=== PATIENT | female | born 1960 | race African-American/Black ===

== ENCOUNTER 2016-12-16 20:30 | Outpatient (CLI) | payer MEDICARE, OTHER | END 2016-12-16 20:31 | disposition home or self-care (01) | LOC: SLEEPLAB 20:30 | PROVIDERS: ATTEND Internal Medicine | DX: G47.33 Obstructive sleep apnea (adult) (pediatric) (principal); R53.83 Other fatigue; R51 Headache; R06.83 Snoring; R35.1 Nocturia; I10 Essential (primary) hypertension; I25.10 Atherosclerotic heart disease of native coronary artery without angina pectoris | CPT/HCPCS: 95811 ==

== ENCOUNTER 2017-02-05 16:36 | Emergency (ER) | payer MEDICARE, MEDICAID ==
[2017-02-05 17:06] LABS: #Basophils 0.1 thou/uL (0.0-0.2); #Eosinphils 0.3 thou/uL (0.0-0.7); #Lymphocytes 4.2 thou/uL (1.20-3.40); #Monocytes 0.7 thou/uL (0.11-0.59); #Neutrophils 3.3 thou/uL (1.40-6.50); %Basophils 1.4 % (0.0-1.0); %Eosinophils 3.6 % (0.0-10.0); %Lymphocytes 48.4 % (21.0-51.0); %Monocytes 8.6 % (0.0-10.0); Mean Platelet Volume 9.3 fL (7.4-10.4); Red Blood Cell (RBC) Count 4.24 mill/uL (4.20-5.40); White Blood Cell (WBC) Count 8.6 thou/uL (4.8-10.8)
[2017-02-05 17:27] LABS: ALT (SGPT) 14 U/L (8-55); AST (SGOT) 13 U/L (5-34); Alkaline Phosphatase 104 U/L (40-150); Anion Gap 10 mmol/L (10-20); BUN (Urea Nitrogen) 18 mg/dL (9.8-20.1); Bilirubin, Total 0.4 mg/dL (0.2-1.2); Calc. Creatinine Clearance 0 mL/min (70-130); Carbon Dioxide 25 mmol/L (22-29); Chloride 106 mmol/L (98-107); Estimated GFR-MDRD 76; Globulin 3.7 g/dL (2.4-3.5); Lipase 33 U/L (8-78); Protein, Total 7.5 g/dL (6.0-8.3)
[2017-02-05 17:31] LABS: Troponin I 0.013 ng/mL (< 0.028)
--- NOTE | 2017-02-05 17:57 | RAD ---
LEFT RIBS THREE VIEWS 02/05/17 HISTORY: Fall. Left chest injury. FINDINGS/IMPRESSION: No displaced rib fracture or pneumothorax are apparent. POS: [facility]
--- NOTE | 2017-02-05 17:59 | RAD ---
RIGHT RIBS THREE VIEWS 02/05/17 HISTORY: Fall. Right chest injury. FINDINGS/IMPRESSION: No displaced rib fracture or pneumothorax are apparent. The oval nodule within the right middle lobe correlates with the abnormality described on prior PET CT. POS: [facility]
--- NOTE | 2017-02-05 18:05 | RAD ---
CHEST ONE VIEW 02/05/17 HISTORY: Fall. Chest injury. COMPARISON: 01/05/15. FINDINGS: The cardiac silhouette is magnified by projection. Pulmonary vasculature is upper limits of normal. M ediastinum is midline with a dual lead left subclavian cardiac electronic device. Mild patchy bibasil ar atelectasis is present with focal densities projecting over the junction of ribs at the right late ral lung base. No lobar consolidations or pneumothorax are apparent. music grapher leads overlie th e chest. IMPRESSION: No active cardiopulmonary abnormalities are demonstrated. POS: [facility]
[2017-02-05 18:21] LABS: Bilirubin Negative (Negative); Blood, Urine Negative (Negative); Glucose, Urine (Dipstick) Negative (Negative); Ketone, Urine Negative (Negative); Nitrite Negative (Negative); Protein, Urine (Dipstick) Negative (Neg-Trace)
--- NOTE | 2017-03-14 13:40 | EKG ---
Test Reason : Blood Pressure : / mmHG Vent. Rate : 078 BPM Atrial Rate : 078 BPM P-R Int : 186 ms QRS Dur : 184 ms QT Int : 470 ms P-R-T Axes : 064 -78 096 degrees QTc Int : 535 ms Atrial-sensed ventricular-paced rhythm Abnormal ECG Confirmed by LORI VALENZUELA ([id number]), editor managing newspaper MEGHANN FUENTES ([id number]) on 03/14/2017 1:40:14 PM Referred By: Confirmed By:LORI VALENZUELA
== END 2017-02-05 18:40 | disposition home or self-care (01) ==
LOC: ERS 16:36
DX: S20.211A Contusion of right front wall of thorax, initial encounter (principal); E78.5 Hyperlipidemia, unspecified; I10 Essential (primary) hypertension; Z71.6 Tobacco abuse counseling; F17.210 Nicotine dependence, cigarettes, uncomplicated; W01.10XA Fall on same level from slipping, tripping and stumbling with subsequent striking against unspecified object, initial encounter
CPT/HCPCS: 71010; 80053; 81003; 82553; 83690; 84484; 85025; 93005; 99406

== ENCOUNTER 2017-03-23 13:48 | Outpatient (CLI) | payer MEDICARE, MEDICAID | END 2017-03-23 13:49 | disposition home or self-care (01) | LOC: BICMAMMO 13:48 | DX: Z12.31 Encounter for screening mammogram for malignant neoplasm of breast (principal) | CPT/HCPCS: 77063; 77067 ==

== ENCOUNTER 2017-06-28 10:37 | Outpatient (CLI) | payer MEDICARE, MEDICAID | END 2017-06-28 10:38 | disposition home or self-care (01) | LOC: BICCT 10:37 | PROVIDERS: ATTEND Internal Medicine | DX: R91.1 Solitary pulmonary nodule (principal); G47.33 Obstructive sleep apnea (adult) (pediatric) | CPT/HCPCS: 71250 ==

== ENCOUNTER 2017-07-10 08:49 | Day surgery (SDC) | payer MEDICARE, MEDICAID ==
[2017-07-07 12:48] VITALS: BMI 30.2
[2017-07-10 09:32] LABS: #Basophils 0.1 thou/uL (0.0-0.2); #Eosinphils 0.3 thou/uL (0.0-0.7); #Lymphocytes 2.8 thou/uL (1.20-3.40); #Monocytes 0.8 thou/uL (0.11-0.59); #Neutrophils 1.9 thou/uL (1.40-6.50); %Basophils 1.4 % (0.0-1.0); %Eosinophils 4.8 % (0.0-10.0); %Lymphocytes 47.7 % (21.0-51.0); %Monocytes 13.4 % (0.0-10.0); %Neutrophils 32.7 % (42.0-75.0); Hemoglobin 14.3 g/dL (12.0-16.0); Mean Corpuscular HGB CONC 33.1 g/dL (32.0-36.0); Mean Corpuscular Volume 96.8 fl (81.0-99.0); Mean Platelet Volume 8.7 fL (7.4-10.4); Platelet Count 213 thou/uL (130-400); RBC Distribution Width 12.6 % (11.5-14.5); Red Blood Cell (RBC) Count 4.45 mill/uL (4.20-5.40); White Blood Cell (WBC) Count 5.8 thou/uL (4.8-10.8)
[2017-07-10 09:41] LABS: INR-International Normal Ratio 0.9; PTT 29.7 SEC (22.9-36.1); Prothrombin Time 12.4 SEC (12.0-14.7)
[2017-07-10 10:29] VITALS: BP 128/71; TEMP 97.8
[2017-07-10] MEDS ORDERED: Sodium Bicarbonate 2.5 MEQ/5 ML VIAL ONE (10:35)
[2017-07-10] MEDS ORDERED: Fentanyl 100 MCG/2 ML VIAL ONE (10:35)
[2017-07-10] MEDS ORDERED: Midazolam HCl 2 mg/2 ml Vial ONE (10:35)
[2017-07-10 12:50] LABS: ALT (SGPT) 17 U/L (8-55); AST (SGOT) 18 U/L (5-34); Albumin 4.4 g/dL (3.5-5.0); Alkaline Phosphatase 120 U/L (40-150); Anion Gap 15 mmol/L (10-20); BUN (Urea Nitrogen) 10 mg/dL (9.8-20.1); Bilirubin, Direct 0.2 mg/dL (0.1-0.3); Bilirubin, Total 0.4 mg/dL (0.2-1.2); Calc. Creatinine Clearance 89 mL/min (70-130); Calcium 9.3 mg/dL (7.8-10.44); Carbon Dioxide 22 mmol/L (22-29); Cardiac Risk 3.4 (Less than 4.5); Chloride 108 mmol/L (98-107); Cholesterol 129 mg/dl (< 200 Desired); Estimated GFR-MDRD 88; Glucose 104 mg/dL (70-105); HDL Cholesterol 38 mg/dL (>60 Neg Risk); LDL Cholesterol, Calculated 53 mg/dL; Potassium 4.2 mmol/L (3.5-5.1); Protein, Total 7.7 g/dL (6.0-8.3); Sodium 141 mmol/L (136-145); Triglycerides 190 mg/dL (Less than 150)
--- NOTE | 2017-07-10 13:20 | RAD ---
INSPIRATORY EXPIRATORY VIEWS OF THE LUNGS: INDICATION: Status post right middle lobe nodule biopsy. COMPARISON: CT of the thorax dated 06/28/17. FINDINGS: A small amount of hemorrhage is seen within the region of the right middle lobe consistent with the p atient's history of a right middle lobe lung nodule biopsy. No large pneumothorax is demonstrated. There is mild cardiomegaly. A dual-lead pacemaker is present. IMPRESSION: 1. No large right-sided pneumothorax demonstrated. 2. A small amount of hemorrhage is seen within the right middle lobe consistent with patient's recen t biopsy. POS: [facility]
--- NOTE | 2017-07-10 14:19 | CT ---
CT GUIDED RIGHT MIDDLE LOBE NODULE BIOPSY: INDICATION: Right middle lobe lung mass. COMPARISON: CT of the thorax performed at [facility] dated 06/28/17, PET CT dated 11/15/16, a nd CT pulmonary lung scan dated 10/21/16. TECHNIQUE: Informed consent was obtained. The patient was placed in a left lateral decubitus position and prepr ocedure sales operations associate images were obtained. [employer] Par[employer]egal images demonstrated optimized positioning for access to th e right middle lobe, lateral segment, pulmonary nodule identified on the prior evaluations. A site o verlying this region was prepped and draped in the usual sterile fashion. The patient underwent cons cious sedation under the guidance of the radiology nurse. The patient received 50 mcg of IV Fentanyl and 1 mg of IV Versed for the procedure. Buffered 1% Lidocaine was administered to the overlying lanier bcutaneous tissues. Under CT fluoroscopic guidance, a 19 gauge 13.8 cm Trocar needle was guided down to the lesion. The inner stylette was removed while the patient was in breathhold. The Trocar need le was then filled with sterile saline. The patient then underwent 2 separate core sample biopsies u tilizing a 20-gauge x 16 cm Bard cord biopsy device. Dr. Wells of the pathology department was on si te to verify adequacy of tissue sampling. After confirmation of adequacy of tissue sampling, the nee dle was removed. Pressure was held at the biopsy site until hemostasis was obtained. Postprocedural CT images demonstrate no significant pneumothorax. A small amount of hemorrhage is seen surrounding the right middle lobe nodule. Post procedure inspiratory/expiratory chest radiographs performed petty roximately 30 minutes following the procedure and at 1 hour following the procedure was assessed with no significant pneumothorax. The patient did well in the holding suite following the procedure. No complications were experienced. IMPRESSION: Successful CT-guided right middle lobe pulmonary nodule biopsy. POS: [facility]
--- NOTE | 2017-07-10 14:36 | RAD ---
INSPIRATORY AND EXPIRATORY VIEWS OF THE CHEST: INDICATION: Status post lung biopsy. COMPARISON: Prior exam dated 07/10/17. FINDINGS: No large pneumothorax is evident. Patchy opacities remain within the region of the right middle lobe consistent with a small amount of hemorrhage surrounding the right middle lobe nodule. Cardiomegaly is stable. Dual-lead pacemaker is unchanged. IMPRESSION: Status post lung biopsy without evidence of pneumothorax. POS: [facility]
== END 2017-07-10 13:35 | disposition home or self-care (01) ==
LOC: SPEC 08:49
PROVIDERS: ATTEND Internal Medicine
PROC: 0BDD4ZX Extraction of Right Middle Lung Lobe, Percutaneous Endoscopic Approach, Diagnostic (ICD-10-PCS; principal; 2017-07-10)
DX: C34.2 Malignant neoplasm of middle lobe, bronchus or lung (principal); I10 Essential (primary) hypertension; I25.10 Atherosclerotic heart disease of native coronary artery without angina pectoris; I73.9 Peripheral vascular disease, unspecified; Z88.0 Allergy status to penicillin
CPT/HCPCS: 32405; 36415; 71045; 77012; 80048; 80061; 80076; 85025; 85610; 85730; 88305; 88333; 88341; 88342; J2250; J3010

== ENCOUNTER 2017-07-24 13:31 | Outpatient (CLI) | payer MEDICARE, MEDICAID ==
[~2017-07-24 13:31] MED LIST: Iopamidol 370 76% 100 ML VIAL ONE
== END 2017-07-24 13:32 | disposition home or self-care (01) ==
LOC: BICCT 13:31
PROVIDERS: ATTEND Internal Medicine
DX: C34.90 Malignant neoplasm of unspecified part of unspecified bronchus or lung (principal); G47.33 Obstructive sleep apnea (adult) (pediatric); R59.0 Localized enlarged lymph nodes; E27.9 Disorder of adrenal gland, unspecified
CPT/HCPCS: 71260

== ENCOUNTER 2017-08-03 07:23 | Outpatient (CLI) | payer MEDICARE, MEDICAID ==
[2017-08-03] MEDS ORDERED: ISOVUE-370 76%-LOCM 1 ML ONE (11:00)
== END 2017-08-03 07:24 | disposition home or self-care (01) ==
LOC: BICCT 07:23
PROVIDERS: ATTEND Internal Medicine Hematology & Oncology
DX: C34.90 Malignant neoplasm of unspecified part of unspecified bronchus or lung (principal)
CPT/HCPCS: 70470

== ENCOUNTER 2017-08-15 13:09 | Outpatient (CLI) | payer MEDICARE, MEDICAID ==
--- NOTE | 2017-08-16 09:41 | PET ---
PET CT: HISTORY: 57-year-old male with moderately differentiated invasive lung adenocarcinoma of the right lung. Exam requested for initial staging. TECHNIQUE: PET scanning with CT attenuation correction was performed from the base of the brain through the prox imal thighs following the intravenous administration of 12 mCi F18-FDG in the right antecubital fossa . Imaging performed after an uptake interval of 51 minutes. COMPARISON: Chest CT dated 11/15/16. CORRELATION: CT chest of 07/24/17. FINDINGS: There is hypermetabolic activity in the 2.0 cm right middle lobe lung nodule with a SUV of 2.8. Pancho hypermetabolism is seen in the subcarinal lymph nodes with a SUV of 5. No hypermetabolic activity is seen in the hilar, axillary, cervical, or abdominopelvic lymph nodes. The adrenal mass demonstrates no abnormal FDG localization and has a SUV of 2.3. No hypermetabolic li sha, adrenal, or skeletal lesions are identified. There is physiologic activity in the GI and tracts, heart, and the visualized portions of the brai n. The CT scan used for attenuation correction demonstrates no evidence of pleural effusions or ascites. There are uterine fibroids and colonic diverticulosis. IMPRESSION: Right lung malignancy with subcarinal lymph pancho metastasis. POS: [facility]
== END 2017-08-15 13:10 | disposition home or self-care (01) ==
LOC: PET 13:09
PROVIDERS: ATTEND Internal Medicine Hematology & Oncology
DX: C34.91 Malignant neoplasm of unspecified part of right bronchus or lung (principal); C77.9 Secondary and unspecified malignant neoplasm of lymph node, unspecified
CPT/HCPCS: 78815; A9552

== ENCOUNTER 2017-09-15 07:25 | Day surgery (SDC) | payer MEDICARE, MEDICAID ==
--- NOTE | 2017-09-12 11:54 | HP ---
HISTORY OF PRESENT ILLNESS: This is an 57-year-old black female with stage 3 adenocarcinoma of the r ight lung, continues to smoke 1/2-pack per day. Referred by Dr. Vazquez for MediPort. She has a lef t subclavian vein pacemaker. Plan is for right subclavian vein MediPort. PAST MEDICAL HISTORY: Hypertension, coronary artery disease, myocardial infarction 20 years ago. No history of stents or intervention, elevated cholesterol, PAD. PAST SURGICAL HISTORY: Right irsni-[id number] amputation in 2014. Pacemaker 2016, right lung cancer, tobacco abuse. ALLERGIES: PENICILLIN. TOBACCO: Never a day. ALCOHOL: Occasionally. MEDICATIONS: Amlodipine, carvedilol. REVIEW OF SYSTEMS: Noncontributory. FAMILY HISTORY: Noncontributory. PHYSICAL EXAMINATION: VITAL SIGNS: 165 pounds, 62 inches, 30 BMI, 122/53, 86, 99.7. HEAD, EARS, EYES, NOSE, AND THROAT: Unremarkable. LUNGS: Apart auscultation. CARDIAC: Regular rate and rhythm without murmur, rub, or gallop. CHEST: Left chest pacemaker. ABDOMEN: Soft, nontender. EXTREMITIES: Right AKA. ASSESSMENT AND PLAN: Right lung adenocarcinoma, stage 3. Plan placement of a right subclavian MediP ort. She understands risks and benefits and consents.
[2017-09-14 10:28] VITALS: BMI 29.9
[2017-09-15] MEDS ORDERED: Levofloxacin 500 mg/D5W 100 ml Premix Bag ONE (07:50)
[2017-09-15] MEDS ORDERED: Fentanyl 100 MCG/2 ML VIAL ONE (09:44)
[2017-09-15] MEDS ORDERED: Midazolam HCl 2 mg/2 ml Vial ONE (09:44)
[2017-09-15] MEDS ORDERED: Bupivacaine HCl 0.5%/Epinephrine 1:200,000/PF 30 ml Vial ONE (09:59)
[2017-09-15] MEDS ORDERED: Lidocaine 2% 10 ML INJ ONE (09:59)
--- NOTE | 2017-09-15 13:11 | OP ---
DATE OF PROCEDURE: 09/15/2017 PREOPERATIVE DIAGNOSIS: Right lung adenocarcinoma stage 3. POSTOPERATIVE DIAGNOSIS: Right lung adenocarcinoma stage 3. PROCEDURE: Right subclavian vein low profile MediPort. SURGEON: Mack Vargas M.D. ANESTHESIA: TIVA, Local 0.5% Marcaine with epinephrine, 30 mL, mixed with 2% Xylocaine, 10 mL. Fluo roscopy used during procedure. PROCEDURE: The patient was taken to the operating room in supine position under intravenous sedation , chest and neck were prepped with ChloraPrep, draped in routine fashion. Local anesthetic infiltrat ed into the skin and subcutaneous tissue about the operative site. Trocar catheter cannulated the ri ght subclavian vein. J-wire threaded. Trocar catheter removed. Skin incised and enlarged sharply, pocket created with blunt and sharp dissection for a MediPort. Hemostasis gained with cautery. Dila tor and pull-away sheath placed over the J-wire in superior vena cava and dilator and J-wire removed. Catheter placed through pull-away sheath. Pull-away sheath removed. Fluoroscopically, catheter ti p placed in optimal position in the superior vena cava, tailored to length, connected to the MediPort placed in subcutaneous pocket, secured with 2 interrupted sutures of 3-0 Prolene. Subcutaneous tiss ues approximated with 3-0 Monocryl, skin with subdermal 4-0 Monocryl and DermaGlue applied. Fluorosc opic images revealed good line placement. The patient tolerated the procedure well. Port accessed w ith a Cochran needle, flushed with heparin saline solution.
--- NOTE | 2017-09-15 13:50 | RAD ---
ONE VIEW CHEST: COMPARISON: 02/05/17. HISTORY: Status post MediPort catheter placement. FINDINGS: Stable left-sided transvenous pacemaker. There is atherosclerosis of the aorta. Normal cardiac silh ouette. Chronic change of the lung parenchyma. Stable mass in the right lower lobe. Interval place ment of a right-sided MediPort catheter with the distal tip projecting over the superior vena cava. There is no pneumothorax. IMPRESSION: Right-sided MediPort catheter placement. No pneumothorax. POS: [facility]
== END 2017-09-15 14:30 | disposition home or self-care (01) ==
LOC: SDC 07:25
PROVIDERS: ATTEND Specialist
PROC: 0JH60WZ Insertion of Totally Implantable Vascular Access Device into Chest Subcutaneous Tissue and Fascia, Open Approach (ICD-10-PCS; principal; 2017-09-15)
PROC: 02HV33Z Insertion of Infusion Device into Superior Vena Cava, Percutaneous Approach (ICD-10-PCS; 2017-09-15)
PROC: B518YZA Fluoroscopy of Superior Vena Cava using Other Contrast, Guidance (ICD-10-PCS; 2017-09-15)
DX: C34.91 Malignant neoplasm of unspecified part of right bronchus or lung (principal); I10 Essential (primary) hypertension; I25.10 Atherosclerotic heart disease of native coronary artery without angina pectoris; I25.2 Old myocardial infarction; E78.00 Pure hypercholesterolemia, unspecified; I73.9 Peripheral vascular disease, unspecified; Z88.0 Allergy status to penicillin; Z87.891 Personal history of nicotine dependence
CPT/HCPCS: 36561; 71045; C1788; J0670; J1642; J1956; J2250; J3010

== ENCOUNTER 2017-11-03 06:15 | Emergency (ER) | payer MEDICARE, MEDICAID ==
[2017-11-03 06:37] LABS: #Lymphocytes 0.7 thou/uL (1.20-3.40); #Monocytes 0.3 thou/uL (0.11-0.59); #Neutrophils 1.9 thou/uL (1.40-6.50); %Basophils 0.5 % (0.0-1.0); %Eosinophils 1.3 % (0.0-10.0); %Lymphocytes 23.8 % (21.0-51.0); %Monocytes 9.2 % (0.0-10.0); %Neutrophils 65.1 % (42.0-75.0); Hemoglobin 12.4 g/dL (12.0-16.0); Mean Corpuscular HGB CONC 34.9 g/dL (32.0-36.0); Mean Corpuscular Hemoglobin 33.8 pg (27.0-31.0); Mean Corpuscular Volume 96.7 fL (78.0-98.0); Mean Platelet Volume 7.3 fL (7.4-10.4); Platelet Count 155 thou/uL (130-400); RBC Distribution Width 14.8 % (11.5-14.5); Red Blood Cell (RBC) Count 3.67 mill/uL (4.20-5.40); White Blood Cell (WBC) Count 2.9 thou/uL (4.8-10.8)
[2017-11-03] MEDS ORDERED: HYDROcodone/Acetaminophen 10/325 mg Tablet ONE (06:48)
[2017-11-03] MEDS ORDERED: valACYclovir 500 MG TAB PO SCH (07:00)
[2017-11-03 07:11] LABS: ALT (SGPT) 12 U/L (8-55); AST (SGOT) 13 U/L (5-34); Albumin 4.1 g/dL (3.5-5.0); Alkaline Phosphatase 98 U/L (40-150); Anion Gap 14 mmol/L (10-20); BUN (Urea Nitrogen) 12 mg/dL (9.8-20.1); Bilirubin, Total 0.6 mg/dL (0.2-1.2); CK (CPK) 37 U/L (29-168); Calc. Creatinine Clearance 0 mL/min (70-130); Calcium 9.3 mg/dL (7.8-10.44); Carbon Dioxide 24 mmol/L (22-29); Chloride 105 mmol/L (98-107); Estimated GFR-MDRD Greater than 90; Globulin 3.2 g/dL (2.4-3.5); Glucose 105 mg/dL (70-105); Potassium 3.8 mmol/L (3.5-5.1); Protein, Total 7.3 g/dL (6.0-8.3); Sodium 139 mmol/L (136-145)
[2017-11-03 07:16] LABS: CKMB 1.2 ng/mL (0-6.6); Troponin I Less than 0.010 ng/mL (< 0.028)
--- NOTE | 2017-11-03 07:36 | RAD ---
UPRIGHT PORTABLE CHEST 1 VIEW: HISTORY: A 57-year-old female with a history of chest pain. COMPARISON: 09/15/17. FINDINGS: Left ICD. Right subclavian catheter and injection port. Right lower lobe pulmonary nodule now measu ring approximately 1.0 cm where it previously measured approximately 1.7 cm on the prior 09/15/17 study . No confluent pneumonia, overt edema, or pleural effusion. IMPRESSION: No acute intrathoracic disease. Decrease in size of the right lower lobe pulmonary nodule when ross red to the prior study. POS: [facility]
== END 2017-11-03 08:04 | disposition home or self-care (01) ==
LOC: ERS 06:15
DX: B02.9 Zoster without complications (principal); E78.5 Hyperlipidemia, unspecified; I10 Essential (primary) hypertension; F17.210 Nicotine dependence, cigarettes, uncomplicated; Z79.891 Long term (current) use of opiate analgesic; Z79.899 Other long term (current) drug therapy
CPT/HCPCS: 71045; 80053; 82550; 82553; 84484; 85025; 93005; 94760

== ENCOUNTER 2017-12-10 02:35 | Inpatient (IN) | payer MEDICARE, MEDICAID ==
[2017-12-10 04:08] LABS: Mean Corpuscular HGB CONC 33.8 g/dL (32.0-36.0); Mean Corpuscular Hemoglobin 35.1 pg (27.0-31.0); Mean Platelet Volume 9.1 fL (7.4-10.4); Platelet Count 158 thou/uL (130-400); RBC Distribution Width 15.3 % (11.5-14.5); Red Blood Cell (RBC) Count 3.42 mill/uL (4.20-5.40); White Blood Cell (WBC) Count 3.8 thou/uL (4.8-10.8)
[2017-12-10 04:12] LABS: PTT 29.7 SEC (22.9-36.1); Prothrombin Time 13.3 SEC (12.0-14.7)
[2017-12-10] MEDS ORDERED: Morphine 2 MG/ML SYRINGE ONE (04:16)
[2017-12-10 04:26] LABS: ALT (SGPT) 10 U/L (8-55); AST (SGOT) 15 U/L (5-34); Albumin 3.8 g/dL (3.5-5.0); Alkaline Phosphatase 90 U/L (40-150); Anion Gap 15 mmol/L (10-20); BUN (Urea Nitrogen) 10 mg/dL (9.8-20.1); Bilirubin, Total 0.2 mg/dL (0.2-1.2); Calc. Creatinine Clearance 0 mL/min (70-130); Calcium 9.2 mg/dL (7.8-10.44); Carbon Dioxide 22 mmol/L (22-29); Chloride 106 mmol/L (98-107); Estimated GFR-MDRD 44; Globulin 3.4 g/dL (2.4-3.5); Glucose 109 mg/dL (70-105); Potassium 3.3 mmol/L (3.5-5.1); Protein, Total 7.2 g/dL (6.0-8.3); Sodium 140 mmol/L (136-145)
[2017-12-10 04:32] LABS: Band 1 % (5-11); Eosinophils 3 % (0-10); Lymphocytes 53 % (21-51); MDiff Complete? YES; Monocytes 11 % (0-10); Neutrophil 31 % (42-75); Reactive Lymphocytes 1 % (0-10)
[2017-12-10] MEDS ORDERED: Morphine 4 MG/ML VIAL SLOW IVP PRN (05:12)
[2017-12-10] MEDS ORDERED: Ondansetron HCl/PF 4 MG/2 ML Vial IVP PRN (05:12)
[2017-12-10] MEDS ORDERED: Morphine 2 MG/ML SYRINGE SLOW IVP PRN (05:12)
[2017-12-10] MEDS ORDERED: Sodium Chloride 0.9% 1,000 ML IV SCH (05:12)
[2017-12-10] MEDS ORDERED: Ondansetron ODT 4 MG TAB SL PRN (05:12)
--- NOTE | 2017-12-10 05:16 | PDOC.FPRHP ---
- History of Present Illness Chief Complaint: Leg tingling History of Present Illness: Mrs. Chambers presents to the ED with leg L leg tingling and pain. She reports this has been coming and going for the past two months. Last night the pain severely intensified and she began to notice color change in her foot. She has had episodes like this before that resulted in her right leg being amputated. She denies any chest pain, shortness of breath or recent illness. She reports that her symptoms resolved 30 mins prior to this interview ED Course: negative LE doppler, pulses not palpated - Allergies/Adverse Reactions Allergies Allergy/AdvReac Type Severity Reaction Status Date / Time Penicillins Allergy Verified 12/10/17 05:27 - Home Medications Medication Instructions Recorded Confirmed Type Amlodipine Besylate [amLODIPine 10 mg PO DAILY 01/05/15 12/10/17 History Besylate] Carvedilol [Coreg] 6.25 mg PO BID #0 tab 01/08/15 12/10/17 Rx Rosuvastatin [Crestor] 20 mg PO HS 07/07/17 12/10/17 History - History PMHx:PVD, HLD, HTN, Lung CA PSHx: R AKA, Pacemaker FHx:none Social: current smoker - Review of Systems General: denies: fever/chills, weight/appetite/sleep changes Eyes: denies: eye pain, vision changes ENT: denies: nasal congestion, rhinorrhea Respiratory: denies: cough, shortness of breath (not increased) Cardiovascular: denies: chest pain, palpitation, edema Gastrointestinal: denies: nausea, vomiting, diarrhea Genitourinary: denies: dysuria Skin: denies: rashes, lesions Musculoskeletal: reports: pain. denies: tenderness, stiffness, swelling Neurological: denies: numbness, syncope, weakness - Vital signs BP: [114/87] HR: [95] RR: [16] Tmax: [97.9] Pox: [97]% on [RA] Wt: [75kg] - Physical Exam Constitutional: NAD, well developed HEENT: normocephalic and atraumatic, grossly normal vision, grossly normal hearing Neck: supple, trachea midline Chest: no-tender to palpation Heart: RRR, normal S1/S2, no murmurs/rubs/gallops Lungs: CTAB, no respiratory distress Abdomen: soft, non-tender Musculoskeletal: normal tone, other (AKA Right knee) Neurological: no focal deficit, CN II-XII intact Skin: no rash/lesions, good turgor Heme/Lymphatic: no unusual bruising or bleeding, no petechia Psychiatric: normal mood and affect FMR H&P: Results - Labs Result Diagrams: 12/10/17 03:47 12/10/17 03:47 Lab results: WBC 3.8 thou/uL (4.8-10.8) L 12/10/17 03:47 Hgb 12.0 g/dL (12.0-16.0) 12/10/17 03:47 Hct 35.4 % (36.0-47.0) L 12/10/17 03:47 MCV 104.0 fL (78.0-98.0) H 12/10/17 03:47 Plt Count 158 thou/uL (130-400) 12/10/17 03:47 Band Neuts % (Manual) 1 % (5-11) L 12/10/17 03:47 Sodium 140 mmol/L (136-145) 12/10/17 03:47 Potassium 3.3 mmol/L (3.5-5.1) L 12/10/17 03:47 Chloride 106 mmol/L (98-107) 12/10/17 03:47 Carbon Dioxide 22 mmol/L (22-29) 12/10/17 03:47 BUN 10 mg/dL (9.8-20.1) 12/10/17 03:47 Creatinine 1.48 mg/dL (0.6-1.1) H 12/10/17 03:47 Glucose 109 mg/dL (70-105) H 12/10/17 03:47 Calcium 9.2 mg/dL (7.8-10.44) 12/10/17 03:47 Total Bilirubin 0.2 mg/dL (0.2-1.2) 12/10/17 03:47 AST 15 U/L (5-34) 12/10/17 03:47 ALT 10 U/L (8-55) 12/10/17 03:47 Alkaline Phosphatase 90 U/L (40-150) 12/10/17 03:47 Serum Total Protein 7.2 g/dL (6.0-8.3) 12/10/17 03:47 Albumin 3.8 g/dL (3.5-5.0) 12/10/17 03:47 FMR H&P: A/P - Problem List (1) Vasospasm of peripheral artery Current Visit: Yes Status: Acute Code(s): I73.9 - PERIPHERAL VASCULAR DISEASE, UNSPECIFIED (2) PVD (peripheral vascular disease) Current Visit: No Status: Acute Code(s): I73.9 - PERIPHERAL VASCULAR DISEASE , UNSPECIFIED (3) HTN (hypertension) Current Visit: No Status: Acute Code(s): I10 - ESSENTIAL (PRIMARY) HYPERTENSION - Plan 1. Vasospasm of peripheral artery - most likely considering symptoms have resolved - appreciate specialty recs 2. PAD - knonw hx of, cause of previous LL amputation 3. HTN - continue home medications Disposition/LOS: admit to surgery, await recs FMR H&P: Upper Level - Pertinent history 57F presents for left foot pain, going on for past few week and worsening 1 hour prior to arrival. She state when she had similar symptom, she had her right leg amputated and this feels like that episode. Her symptom is worsen by by walking. She has tobacco history. Dr. Traore was consulted from ER who state patient did not need CTA or US. He recommended admission to medical team and he will come on as netsuite consultant. He recommends no heparin at this time and for her to be NPO - Pertinent findings Gen: Alert, grossly oriented CV:RRR with no apparent m/g/r Resp: CTA bilaterally Ext: AKA on right side. Left leg, smooth, lack of hair. No gross abnormalities seen. Strength 5/5 on left side. Sensation grossly intact. Tibial and dorsalis pulse absent. - Plan Date/Time: 12/10/17 0514 I, [Tay Flood], have evaluated this patient and agree with findings/plan as outlined by director internal communications resident. Pertinent changes/additions are listed here. 1. Peripheral Arterial Disease - Multiple risk factor including hx of blood clot, active breast cancer, tobacco use - Appreciate consult recs. Will follow up on that. Possibility for intervention today. 2. Leukopenia - New issue, not seen earlier this year. - No obvious cause at this time, will work up with b12, folate, peripheral smear initially 3. Hypokalemia - Will correct with potassium 4. PHUONG - New issue to this visit. Start with IV fluid hydration, encourage PO intake after consult sees 5. HTN - Continue home medication, carvedilol and amlodipine, after seen by consult 6. HLD - Continue coreg after seen by consult 6. Adenocarcinoma of rt lung - Patient is currently following with Dr. Vazquez. 7. Bradycardia - Has pacemaker placed previously. Not symptomatic at this time. Attending Addendum - Attending Addendum Date/Time: 12/10/17 0705 I personally evaluated the patient and discussed the management with Dr. Hutson. I agree with the History, Examination, Assessment and Plan documented above with any addition or exceptions noted below. The patient presented with tingling and pain in the left leg. She states it has been present off and on for about a month. It worsened overnight. Pt is admitted to evaluation by CV surgery.
[2017-12-10] MEDS ORDERED: Acetaminophen 325 MG TAB PO PRN (05:42)
[2017-12-10] MEDS ORDERED: Potassium Chloride 20 MEQ TAB PO SCH (06:15)
[2017-12-10] MEDS: Sodium Chloride 0.9% 1,000 ML IV SCH ×3 (07:04→22:10)
[2017-12-10 07:27] LABS: Phosphorus 4.2 mg/dL (2.3-4.7)
[2017-12-10 07:42] LABS: Band 5 % (5-11); Eosinophils 3 % (0-10); Hemoglobin 11.6 g/dL (12.0-16.0); Lymphocytes 47 % (21-51); MDiff Complete? YES; Mean Corpuscular HGB CONC 33.5 g/dL (32.0-36.0); Mean Platelet Volume 9.4 fL (7.4-10.4); Monocytes 9 % (0-10); Neutrophil 36 % (42-75); Platelet Count 158 thou/uL (130-400); RBC Distribution Width 15.4 % (11.5-14.5); Red Blood Cell (RBC) Count 3.31 mill/uL (4.20-5.40); White Blood Cell (WBC) Count 3.7 thou/uL (4.8-10.8)
[2017-12-10] MEDS: Carvedilol 6.25 MG TAB PO SCH ×2 (12:11→20:44)
[2017-12-10] MEDS: Amlodipine 10 MG TAB PO SCH (12:11)
[2017-12-10 13:39] LABS: Anion Gap 11 mmol/L (10-20); BUN (Urea Nitrogen) 9 mg/dL (9.8-20.1); Calc. Creatinine Clearance 74 mL/min (70-130); Calcium 8.4 mg/dL (7.8-10.44); Carbon Dioxide 22 mmol/L (22-29); Chloride 110 mmol/L (98-107); Estimated GFR-MDRD 71; Glucose 104 mg/dL (70-105); Potassium 3.9 mmol/L (3.5-5.1); Sodium 139 mmol/L (136-145)
[2017-12-10] MEDS ORDERED: Ondansetron ODT 4 MG TAB PO PRN (17:34)
--- NOTE | 2017-12-10 19:59 | CON ---
DATE OF CONSULTATION: 12/10/2017 REQUESTING PHYSICIAN: Dr. Suzanne Avilez with [facility]. CHIEF COMPLAINT: Left foot pain. HISTORY OF PRESENT ILLNESS: The patient is a 57-year-old black woman, who has recently completed jerrica motherapy and radiotherapy for a clinical stage III adenocarcinoma of the right middle lobe of the paul ng. In 07/2013, she underwent a right lower extremity popliteal endarterectomy and above knee femora l popliteal bypass for rest pain in 04/2014, her graft was noted to have failed. She had no other re asonable revascularization options and underwent a right above-knee amputation. For the last couple of months she has been having episodic rest pain and paresthesias in her left foot and last night the y were severe enough to prompt presentation to the emergency room. Evidently, she had a delayed seek ing medical care because these symptoms were sufficiently similar to those that she had prior to her amputation that she was afraid that amputation would be recommended. She apparently has been ambulat ory with the assistance of a walker. Her rest pain resolved shortly after arrival at the hospital an d currently she has only some vague tingling in the foot rather than any pain. PAST MEDICAL HISTORY: Significant for her vascular disease, hypertension. Her recently diagnosed paul ng cancer. PAST SURGICAL HISTORY: She has had a pacemaker implantation. HOME MEDICATIONS: Crestor 20 mg a day, Coreg 6.25 mg b.i.d., Norvasc 10 mg a day. Those medications have been continued. ALLERGIES: She reports an allergy to PENICILLIN. SOCIAL HISTORY: She is a long-term smoker and continues to smoke. FAMILY HISTORY: Significant for hypertension and diabetes in her mother. REVIEW OF SYSTEMS: Negative for any current shortness of breath, any chest pain, any stroke or TIA s ymptoms. PHYSICAL EXAMINATION: GENERAL: She is in no distress. VITAL SIGNS: Height 5 feet 2 inches, weight is 164.5 pounds, heart rate 89, blood pressure 131/76, t emperature is 98.5, room air O2 sats are 94%. She has no xanthelasma. NECK: No JVD, no carotid bruits. LUNGS: Chest is clear to auscultation. She was not able to blow out very hard against my hand when I asked her to do so. CARDIAC: Regular rate and rhythm without murmur or gallop. ABDOMEN: Soft and nontender. EXTREMITIES: Palpable radial pulses. She has diminished left femoral pulse and a nonpalpable right femoral pulse. Both femorals are associated with bruits. She has a well healed right AKA. She has no palpable popliteal or pedal pulses on the left side. Capillary refill in the left foot is about 2 seconds. The left foot is very slightly cool. There is no particular mottling to it. The compartm ents are soft and nontender. She has no clubbing, cyanosis or edema. NEUROLOGIC: Seems grossly nonfocal. LABORATORY DATA: Her white count is 3.7, hemoglobin 11.6, hematocrit 34.6, platelets 158,000 with an MCV of 104. PT was 13.3, INR 1.0, PTT 29.7. Potassium was 3.3, otherwise electrolytes normal. Glu cose 109, BUN 10, creatinine 1.48 on 6th of this month. Her BUN was 8, creatinine 0.87. Her LFTs ar e normal. Albumin 3.8. Folate was at the lower limits of normal at 7.30, vitamin B12 was 321. Her CT prior to initiating therapy showed a subcarinal node to the right of midline. There was hypermeta bolic consistent with a clinical stage III tumor. PFTs from 10/2016 showed forced vital capacity of 1.84 liters which was 74% of predicted, and FEV1 of 1.56 liters, which was 85% of predicted. An echo cardiogram from 12/2014 showed an LVEF around 55% to 60%. I reviewed her arteriograms from 2013. At that time, she had diffuse plaque in her left SFA with a 2-3 focal high grade lesions. There was a high grade lesion proximally in the profunda. Below the knees, she had a significant trifurcation ve ssel disease; however, the anterior tibial was fairly diffusely diseased and could not be seen in the distal lower leg. There was occlusion of the tibioperoneal trunk with reconstitution of diffusely i rregular peroneal that could not be seen to cross into the foot. The posterior tibial was essentiall y nonvisualized. IMPRESSION AND RECOMMENDATIONS: Based on her arteriograms from 4-1/2 years ago, I doubt that there i s going to be much in the way of a bypass that would be adequate restore a palpable pulse in the foot . It might be feasible to improve inflow. I suspect that the only realistic hope for revascularizat ion adequate to relieve her rest pain is that some sort of local procedures such as a femoral endarte rectomy and profundoplasty could be done. Arteriography will be necessary to plan this. Her creatin ine is mildly elevated today. I am going to use hydration to guard against contrast nephropathy and recheck labs tomorrow.
[2017-12-10] MEDS: Rosuvastatin 20 MG TAB PO SCH (20:44)
[2017-12-11] MEDS: Sodium Chloride 0.9% 1,000 ML IV SCH ×2 (05:14→13:10)
[2017-12-11 07:16] LABS: #Eosinphils 0.1 thou/uL (0.0-0.7); #Lymphocytes 1.4 thou/uL (1.20-3.40); #Monocytes 0.9 thou/uL (0.11-0.59); #Neutrophils 4.2 thou/uL (1.40-6.50); %Basophils 0.7 % (0.0-1.0); %Eosinophils 1.6 % (0.0-10.0); %Lymphocytes 20.7 % (21.0-51.0); %Monocytes 13.9 % (0.0-10.0); Hemoglobin 11.7 g/dL (12.0-16.0); Mean Corpuscular HGB CONC 32.9 g/dL (32.0-36.0); Mean Corpuscular Hemoglobin 34.7 pg (27.0-31.0); Mean Platelet Volume 8.8 fL (7.4-10.4); Platelet Count 156 thou/uL (130-400); RBC Distribution Width 15.4 % (11.5-14.5); Red Blood Cell (RBC) Count 3.36 mill/uL (4.20-5.40); White Blood Cell (WBC) Count 6.6 thou/uL (4.8-10.8)
[2017-12-11 07:25] LABS: Anion Gap 12 mmol/L (10-20); BUN (Urea Nitrogen) 8 mg/dL (9.8-20.1); Calc. Creatinine Clearance 88 mL/min (70-130); Carbon Dioxide 23 mmol/L (22-29); Chloride 109 mmol/L (98-107); Estimated GFR-MDRD 87; Glucose 107 mg/dL (70-105); Potassium 4.2 mmol/L (3.5-5.1); Sodium 140 mmol/L (136-145)
--- NOTE | 2017-12-11 08:23 | PDOC.FM ---
- Subjective Subjective: Pt seen at bedside this morning. No acute distress. Pt states that she feels well and that her symptoms of tingling/pain in her leg have largely resolved. No new symptoms. No acute events over night. - Objective MAR Reviewed: Yes Vital Signs & Weight: Vital Signs (12 hours) Temp Pulse Resp BP BP Pulse Ox 12/11/17 04:50 98.4 F 84 18 164/90 H 97 12/10/17 23:57 98.3 F 78 16 135/73 95 12/10/17 20:44 132/85 Weight Weight 74.559 kg I&O: 12/10/17 12/11/17 12/12/17 06:59 06:59 06:59 Intake Total 2300 2450 Output Total 450 Balance 1850 2450 Result Diagrams: 12/11/17 06:49 12/11/17 06:49 <Herbie Hamilton - Last Filed: 12/11/17 08:21> - Objective Vital Signs & Weight: Vital Signs (12 hours) Temp Pulse Resp BP BP Pulse Ox 12/11/17 09:06 82 158/86 H 12/11/17 07:55 98.3 F 82 18 158/86 H 96 12/11/17 04:50 98.4 F 84 18 164/90 H 97 12/10/17 23:57 98.3 F 78 16 135/73 95 Weight Weight 74.559 kg I&O: 12/10/17 12/11/17 12/12/17 06:59 06:59 06:59 Intake Total 2300 2500 Output Total 450 Balance 1850 2500 Result Diagrams: 12/11/17 06:49 12/11/17 06:49 <Reyna Marshall - Last Filed: 12/11/17 11:16> Phys Exam - Physical Examination Constitutional: NAD HEENT: PERRLA, moist MMs Neck: no nodes Respiratory: clear to auscultation bilateral Cardiovascular: RRR, no significant murmur Gastrointestinal: soft, non-tender, no distention Musculoskeletal: no edema AKA R leg. No palpable pulses in L foot. Neurological: non-focal, moves all 4 limbs Psychiatric: normal affect, A&O x 3 Skin: no rash <Herbie Hamilton - Last Filed: 12/11/17 08:21> Dx/Plan (1) PVD (peripheral vascular disease) Code(s): I73.9 - PERIPHERAL VASCULAR DISEASE, UNSPECIFIED Status: Chronic (2) PHUONG (acute kidney injury) Code(s): N17.9 - ACUTE KIDNEY FAILURE, UNSPECIFIED Status: Resolved (3) HTN (hypertension) Code(s): I10 - ESSENTIAL (PRIMARY) HYPERTENSION Status: Chronic (4) Macrocytic anemia Code(s): D53.9 - NUTRITIONAL ANEMIA, UNSPECIFIED Status: Acute - Plan Plan: PVD - CV surg has been consulted. Contrast study is pending, will likely be ordered today. This was delayed due to PHUONG which has since resolved. - Currently asymptomatic. Will wait for further recommendations from CV surg PHUONG, resolved - unclear etiology, pt denies vomiting, diarrhea, or decreased oral intake. No other significant lab abnormalities. - Cr down to 0.82 today - Continue IVF while NPO Macrocytic anemia - Mild, asymptomatic, and stable Hb this visit - Folate is low normal, B12 normal - Continue to monitor HTN - continue home meds Dispo: Pt is stable, she will likely need surgical intervention. Length of stay pending further work up and CV surg recommendations <Herbie Hamilton - Last Filed: 12/11/17 08:21> Attending Addendum - Attending Addendum Date/Time: 12/11/17 1112 I personally evaluated the patient and discussed the management with Dr. Hamilton I agree with the History, Examination, Assessment and Plan documented above with any addition or exceptions noted below. 57 yo female with history of HTN and PVD admitted for worsening symptoms. HD#1 Patient did well overnight. Currently without complaints. Resting in bed. Has angiogram scheduled later today. VS reviewed. Labs reviewed. PVD: CV surg following. Angiogram today. HTN: Adjust meds as needed. PHUONG on CKD I/II: Resolved. Continue IVFs to help offload risk for contrast. Continue to monitor renal function next few days. Awaiting results of angio today. ABrayMD <Reyna Marshall - Last Filed: 12/11/17 11:16>
[2017-12-11] MEDS: Amlodipine 10 MG TAB PO SCH (09:06)
[2017-12-11] MEDS: Carvedilol 6.25 MG TAB PO SCH ×2 (09:06→19:31)
[2017-12-11] MEDS ORDERED: Iopamidol 370 76% 50 ML VIAL FS ONE (09:24)
[2017-12-11] MEDS: Morphine 4 MG/ML VIAL SLOW IVP PRN ×4 (10:09→23:29)
[2017-12-11] MEDS ORDERED: Lidocaine 1% (PF) 30 ML VIAL ONE ×2 (17:28→18:21)
[2017-12-11] MEDS ORDERED: Fentanyl 100 MCG/2 ML VIAL ONE (17:49)
[2017-12-11] MEDS ORDERED: Midazolam HCl 2 mg/2 ml Vial ONE ×2 (17:49→18:17)
[2017-12-11] MEDS ORDERED: Sodium Chloride 0.9% 1,000 ML IV SCH (19:15)
[2017-12-11] MEDS: Rosuvastatin 20 MG TAB PO SCH (19:31)
--- NOTE | 2017-12-12 01:48 | OP ---
DATE OF PROCEDURE: 12/11/2017 PROCEDURE PERFORMED: Aortography with left lower extremity runoff and sheath arteriogram. PREOPERATIVE DIAGNOSIS: Peripheral vascular disease with left lower extremity rest pain. POSTOPERATIVE DIAGNOSIS: Peripheral vascular disease with left lower extremity rest pain. SURGEON: Jose Manuel Traore M.D. ANESTHESIA: 1% lidocaine local anesthesia with intravenous sedation consisting of incremental doses of Versed and fentanyl with a total of 4 mg of Versed and 100 mcg of fentanyl. INDICATIONS: The patient is a 57-year-old black woman who 4 years ago underwent femoral popliteal by pass grafting of her right lower extremity for rest pain. The graft failed and she lost that leg. S he has continued to smoke and she recently presented with about 2 months' worth of progressive rest p ain involving the left foot. Her previous arteriography demonstrated profunda disease and trifurcati on disease on the left side. An arteriogram is now being performed to map out her arterial anatomy i n an attempt to plan revascularization for limb salvage. FINDINGS: Minimal disease in the common and external iliac. There were serial stenoses in branches of the profunda. The SFA occluded and then reconstituted above the knee. The popliteal artery was a small vessel. The trifurcation was diseased with a single vessel runoff through the peroneal, which was a severely diseased vessel down to the ankle. NARRATIVE REPORT: After informed consent was obtained, the patient was taken to the film laboratory technician and joni kristan in the supine position on the cath table. Her groins were prepped and draped in sterile fashion and she was given IV sedation. Ultrasonography was used to interrogate the right groin and lidocaine was infiltrated in the skin and subcutaneous tissues. Micropuncture technique was used to cannulate the common femoral artery. Several attempts were required as identification of the anatomy with the previous surgery was somewhat problematic and the first 2 sticks were venous. The distal external i liac was cannulated by micropuncture more proximally. The tract was dilated. Wire was exchanged and sheath introduced. This was done under fluoroscopy. A guidewire and a catheter were passed up into the aorta and a flush aortogram was performed. Wire was then advanced into the left iliac system an d catheter was exchanged to guide a catheter distally. Catheter was first advanced to about the leve l of the femoral head and an injection made. Extensive profunda disease could be appreciated as well as diffuse irregularity to the superficial femoral, which then occluded and reconstituted above the knee. The catheter was then advanced to the mid SFA about to the point where it occluded to get furt her injections to demonstrate the trifurcation better and when those injections have been completed, guidewire was reinserted and the catheter was removed over the wire. A sheath arteriogram was then p erformed to examine the remaining right-sided vasculature, which demonstrated occlusion of the common femoral. The sheath was removed and hemostasis was achieved with direct pressure and the patient wa s taken to the recovery area in stable condition.
[2017-12-12] MEDS: Morphine 4 MG/ML VIAL SLOW IVP PRN (04:15)
[2017-12-12 04:37] LABS: #Eosinphils 0.1 thou/uL (0.0-0.7); #Lymphocytes 1.4 thou/uL (1.20-3.40); #Monocytes 0.8 thou/uL (0.11-0.59); #Neutrophils 3.4 thou/uL (1.40-6.50); %Basophils 0.6 % (0.0-1.0); %Eosinophils 1.5 % (0.0-10.0); %Lymphocytes 24.1 % (21.0-51.0); %Monocytes 14.4 % (0.0-10.0); %Neutrophils 59.5 % (42.0-75.0); Hemoglobin 10.2 g/dL (12.0-16.0); Mean Corpuscular HGB CONC 32.3 g/dL (32.0-36.0); Mean Corpuscular Hemoglobin 34.1 pg (27.0-31.0); Mean Platelet Volume 8.8 fL (7.4-10.4); Platelet Count 140 thou/uL (130-400); RBC Distribution Width 15.2 % (11.5-14.5); White Blood Cell (WBC) Count 5.6 thou/uL (4.8-10.8)
[2017-12-12 04:57] LABS: Anion Gap 10 mmol/L (10-20); BUN (Urea Nitrogen) 7 mg/dL (9.8-20.1); Calc. Creatinine Clearance 89 mL/min (70-130); Calcium 8.9 mg/dL (7.8-10.44); Carbon Dioxide 25 mmol/L (22-29); Chloride 106 mmol/L (98-107); Estimated GFR-MDRD 88; Glucose 121 mg/dL (70-105); Potassium 3.3 mmol/L (3.5-5.1); Sodium 138 mmol/L (136-145)
--- NOTE | 2017-12-12 07:59 | PDOC.FM ---
- Subjective Subjective: 57 yo F seen at bedside this am. She completed a L leg arteriogram yesterday which found multiple areas of stenosis. 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 She denies any new symptoms or problems. No acute events over night. - Objective MAR Reviewed: Yes Vital Signs & Weight: Vital Signs (12 hours) Temp Pulse Resp BP BP 12/12/17 02:00 98 F 75 16 118/59 L 12/12/17 01:05 98.1 F 85 16 131/64 12/11/17 23:55 98 F 80 16 128/67 12/11/17 23:00 98 F 80 16 130/60 12/11/17 22:00 98.1 F 76 16 137/68 12/11/17 21:30 98.1 F 80 16 140/68 12/11/17 21:00 98 F 87 16 167/81 H 12/11/17 20:30 98 F 81 16 160/82 H Weight Weight 74.559 kg I&O: 12/11/17 12/12/17 12/13/17 06:59 06:59 06:59 Intake Total 2300 4220 Output Total 450 1800 Balance 1850 2420 Result Diagrams: 12/12/17 04:10 12/12/17 04:10 <Herbie Hamilton - Last Filed: 12/12/17 07:56> - Objective Vital Signs & Weight: Vital Signs (12 hours) Temp Pulse Resp BP BP 12/12/17 08:33 75 12/12/17 02:00 98 F 75 16 118/59 L 12/12/17 01:05 98.1 F 85 16 131/64 12/11/17 23:55 98 F 80 16 128/67 12/11/17 23:00 98 F 80 16 130/60 Weight Weight 74.559 kg I&O: 12/11/17 12/12/17 12/13/17 06:59 06:59 06:59 Intake Total 2300 4220 Output Total 450 1800 Balance 1850 2420 Result Diagrams: 12/12/17 04:10 12/12/17 04:10 <Reyna Marshall - Last Filed: 12/12/17 10:12> Phys Exam - Physical Examination Constitutional: NAD HEENT: PERRLA, moist MMs Neck: no JVD Respiratory: clear to auscultation bilateral Cardiovascular: RRR, no significant murmur Gastrointestinal: soft, non-tender Musculoskeletal: no edema R AKA. L foot with no palpable pulse. Neurological: moves all 4 limbs Psychiatric: normal affect, A&O x 3 Skin: no rash <Herbie Hamilton - Last Filed: 12/12/17 07:56> Dx/Plan (1) PVD (peripheral vascular disease) Code(s): I73.9 - PERIPHERAL VASCULAR DISEASE, UNSPECIFIED Status: Chronic (2) PHUONG (acute kidney injury) Code(s): N17.9 - ACUTE KIDNEY FAILURE, UNSPECIFIED Status: Resolved (3) HTN (hypertension) Code(s): I10 - ESSENTIAL (PRIMARY) HYPERTENSION Status: Chronic (4) Macrocytic anemia Code(s): D53.9 - NUTRITIONAL ANEMIA, UNSPECIFIED Status: Acute - Plan Plan: PVD - s/p arteriogram with findings of multiple areas of stenosis. - Continues to be asymptomatic. Will continue to follow CV surg recommendations PHUONG, resolved, resolved - continue to monitor Macrocytic anemia - Mild, asymptomatic, and stable Hb this visit - Continue to monitor HTN - continue home meds Dispo: Pt is stable, length of stay pending CV surg plan and recommendations <Herbie Hamilton - Last Filed: 12/12/17 07:56> Attending Addendum - Attending Addendum Date/Time: 12/12/17 1010 I personally evaluated the patient and discussed the management with Dr. Hamilton I agree with the History, Examination, Assessment and Plan documented above with any addition or exceptions noted below. 57 yo female with history of HTN and PVD admitted for worsening symptoms. HD#2 Patient did well overnight. Currently without complaints. Out of bed moving around. s/p angiogram yesterday. Plans to have revascularization procedure tomorrow. VS reviewed. Labs reviewed. PVD: CV surg following. Angiogram with possible amendable disease. Procedure scheduled tomorrow. HTN: Adjust meds as needed. PHUONG on CKD I/II: Resolved. s/p contract study. Continue to monitor renal function next few days. CV surg to perform procedure on Monday. ABrayMD <Reyna Marshall - Last Filed: 12/12/17 10:12>
[2017-12-12] MEDS: Amlodipine 10 MG TAB PO SCH (08:33)
[2017-12-12] MEDS: Carvedilol 6.25 MG TAB PO SCH ×2 (08:33→20:25)
[2017-12-12] MEDS: Rosuvastatin 20 MG TAB PO SCH (20:24)
[2017-12-13] MEDS: Carvedilol 6.25 MG TAB PO SCH ×2 (07:28→20:35)
--- NOTE | 2017-12-13 09:16 | PDOC.FM ---
- Subjective Subjective: Seen at bedside this am. No concerns. No acute events over night. Pt has been told that she will have a vascular surgery today. - Objective MAR Reviewed: Yes Vital Signs & Weight: Vital Signs (12 hours) Temp Pulse Resp BP BP Pulse Ox 12/13/17 07:28 120/78 12/13/17 07:09 98.1 F 77 18 120/78 97 Weight Weight 74.559 kg I&O: 12/12/17 12/13/17 12/14/17 06:59 06:59 06:59 Intake Total 4220 1360 Output Total 1800 Balance 2420 1360 Result Diagrams: 12/12/17 04:10 12/12/17 04:10 <Herbie Hamilton - Last Filed: 12/13/17 09:15> - Objective Vital Signs & Weight: Vital Signs (12 hours) Temp BP Pulse Ox 12/14/17 07:00 98.1 F 12/14/17 03:00 98.0 F 12/13/17 23:00 97.9 F 97 12/13/17 20:35 150/96 H Weight Weight 74.559 kg Most Recent Monitor Data Heart Rate from ECG 80 NIBP 142/105 NIBP BP-Mean 117 Respiration from ECG 20 SpO2 95 I&O: 12/13/17 12/14/17 12/15/17 06:59 06:59 06:59 Intake Total 1360 1423 100 Output Total 1330 400 Balance 1360 93 -300 Result Diagrams: 12/12/17 04:10 12/12/17 04:10 <Reyna Marshall - Last Filed: 12/14/17 07:54> Phys Exam - Physical Examination Constitutional: NAD HEENT: PERRLA Neck: no JVD Respiratory: clear to auscultation bilateral Cardiovascular: RRR, no significant murmur Gastrointestinal: soft, non-tender, no distention R AKA, no pedal pulse on L Neurological: non-focal, moves all 4 limbs Psychiatric: normal affect, A&O x 3 Skin: no rash, normal turgor <Herbie Hamilton - Last Filed: 12/13/17 09:15> Dx/Plan (1) PVD (peripheral vascular disease) Code(s): I73.9 - PERIPHERAL VASCULAR DISEASE, UNSPECIFIED Status: Chronic (2) PHUONG (acute kidney injury) Code(s): N17.9 - ACUTE KIDNEY FAILURE, UNSPECIFIED Status: Resolved (3) HTN (hypertension) Code(s): I10 - ESSENTIAL (PRIMARY) HYPERTENSION Status: Chronic (4) Macrocytic anemia Code(s): D53.9 - NUTRITIONAL ANEMIA, UNSPECIFIED Status: Acute - Plan Plan: PVD - s/p arteriogram with findings of multiple areas of stenosis. - Pt will have revascularization surgery this am PHUONG, resolved, resolved - continue to monitor Macrocytic anemia - Mild, asymptomatic, and stable Hb this visit - Continue to monitor HTN - continue home meds Dispo: Pt is stable, length of stay pending CV surg plan and recommendations <Herbie Hamilton - Last Filed: 12/13/17 09:15> Attending Addendum - Attending Addendum Date/Time: 12/13/17 6412 I personally discussed the management with Dr. Hamilton I agree with the History, Examination, Assessment and Plan documented above with any addition or exceptions noted below. Unable to evaluate patient today due to surgery. Patient however did well overnight without complaints. Patient to be moved to ICU after procedure today. Will follow up later nivia/AM. Mcwilliams <Reyna Marshall - Last Filed: 12/14/17 07:54>
[2017-12-13] MEDS: Amlodipine 10 MG TAB PO SCH (10:06)
[2017-12-13] MEDS ORDERED: Protamine Sulfate 50 MG/5 ML VIAL ONE (10:35)
[2017-12-13] MEDS ORDERED: Fentanyl 250 MCG/5 ML VIAL ONE (10:35)
[2017-12-13] MEDS ORDERED: Heparin 5,000 UNITS/ML VIAL ONE (10:35)
[2017-12-13] MEDS ORDERED: Heparin 10,000 UNITS/1 ML VIAL 30,000 UNITS, Admixture Fee 1 EACH in Sodium Chloride 0.... IVPB SCH (10:45)
[2017-12-13] MEDS ORDERED: Clindamycin/D5W 900 mg/50 ml Premix Bag ONE (10:52)
[2017-12-13] MEDS ORDERED: PHENYLEPHRINE-NS 100 MCG/ML 10 ML SYRINGE ONE (11:15)
[2017-12-13] MEDS ORDERED: PROPOFOL 200 MG/20 ML VIAL ONE (11:15)
[2017-12-13] MEDS ORDERED: Ondansetron HCl/PF 4 MG/2 ML Vial ONE (11:15)
[2017-12-13] MEDS ORDERED: Succinylcholine Chloride 20 MG/ML 10 ml SYRINGE FS ONE (11:15)
[2017-12-13] MEDS ORDERED: Dexamethasone 20 MG/5 ML VIAL ONE (11:15)
[2017-12-13] MEDS ORDERED: Heparin 10,000 UNITS/ 10 ML VIAL ONE (11:15)
[2017-12-13] MEDS ORDERED: HYDROmorphone 2 MG/ML VIAL ONE (14:36)
[2017-12-13] MEDS ORDERED: HYDROmorphone 2 MG/ML VIAL SLOW IVP PRN (14:43)
[2017-12-13] MEDS ORDERED: Promethazine HCl 25 MG/ML VIAL SLOW IVP PRN (14:43)
[2017-12-13] MEDS ORDERED: Promethazine HCl 25 MG/ML VIAL IM PRN (14:43)
[2017-12-13] MEDS ORDERED: Ondansetron HCl/PF 4 MG/2 ML Vial IVP PRN ×2 (14:43→16:17)
[2017-12-13] MEDS ORDERED: Meperidine HCl/PF 25 MG/ML VIAL SLOW IVP PRN (14:43)
[2017-12-13] MEDS ORDERED: Fentanyl 100 MCG/2 ML VIAL ONE ×2 (15:21→16:09)
[2017-12-13] MEDS ORDERED: Acetaminophen 325 MG TAB PO PRN (16:17)
[2017-12-13] MEDS ORDERED: HYDROcodone/Acetaminophen 5/325 mg Tablet PO PRN ×2 (16:17)
--- NOTE | 2017-12-13 16:29 | OP ---
DATE OF PROCEDURE: 12/13/2017 PROCEDURES PERFORMED: Left iliofemoral and profunda femoris endarterectomy with pericardium patch an gioplasty. PREOPERATIVE DIAGNOSIS: Peripheral vascular disease with left lower extremity rest pain. POSTOPERATIVE DIAGNOSIS: Peripheral vascular disease with left lower extremity rest pain. SURGEON: Jose Manuel Traore MD ANESTHESIA: General endotracheal anesthesia. INDICATIONS: The patient is a 57-year-old woman, who has already lost her right leg due to periphera l vascular disease, but is still able to get around with a walker. She has just completed palliative chemoradiotherapy for clinical stage III lung cancer and so far is doing reasonably well, but has de veloped rest pain in her remaining leg. Arteriography demonstrates progression of disease primarily affecting the deep system in the upper thigh. She has poor runoff to the foot primarily through a di seased peroneal. She is now taken to the operating room for profundoplasty in an attempt to relieve her rest pain. FINDINGS: Extensive plaque extending into the profunda femoris proper as well as the deep branch pas sing posterior medially from the common femoral bifurcation. Pericardial patches were taken about 3 cm down onto each of those vessels. NARRATIVE REPORT: After informed consent was obtained, the patient was taken to the operating room a nd placed in supine position on the operating table. After the induction of general anesthesia, the patient's lower abdomen, groins, and left lower extremity were prepped and draped in sterile fashion. An oblique incision was made about a fingerbreadth below and parallel to the left groin crease. Th e common femoral artery was exposed and isolated the superficial femoral profunda and the deep penetr ating branch were isolated. The patient was heparinized and then vascular control was established on the femoral system. A longitudinal arteriotomy was made in the distal common femoral artery and ext ended proximally with a Craig scissors then extended well down onto the profunda. An endarterectomy was performed on the profunda. There was extensive disease angiographically and palpably in the deep penetrating branch. The Craig scissors were used to cut directly posteriorly down the common femora l bifurcation and then inserted into the orifice of the deep penetrating branch opening it up for abo ut 3 cm and an endarterectomy was performed there as well. A bovine pericardial patch was taken chris g that deep penetrating branch that ran posterior to and in between the profunda the superficial femo ral. The patch was taken up to reconstruct the common femoral bifurcation and then a second patch wa s taken up on the profunda on up to the proximal extent of the common femoral arteriotomy. The plaqu e that had been transected at the origin of the superficial femoral was tacked in place with interrup juan pablo mattress Prolene sutures and then the patches were taken up into the iliofemoral system to comple te the closure, the vascular controls were released. One bleeding point along the patch to patch sut ure line and one along the patch to profunda suture line were easily controlled with [id number] Prolene sutures. When hemostasis was adequate, the wound was irrigated and then closed in deep a nd superficial subcutaneous layers of 2-0 Vicryl subcuticular suture and Dermabond for the skin. The wound was dressed and the patient was taken to the recovery area in stable condition.
[2017-12-13] MEDS: Morphine 4 MG/ML VIAL SLOW IVP PRN ×2 (17:27→21:07)
[2017-12-13] MEDS: Sodium Chloride 0.9% 1,000 ML IV SCH (17:29)
[2017-12-13 20:35] VITALS: BP 150/96
[2017-12-13] MEDS: Rosuvastatin 20 MG TAB PO SCH (20:35)
[2017-12-14] MEDS: Sodium Chloride 0.9% 1,000 ML IV SCH (01:35)
--- NOTE | 2017-12-14 07:09 | DIS ---
DATE OF ADMISSION: 12/10/2017 DATE OF DISCHARGE: 12/14/2017 PRINCIPAL DIAGNOSES: Peripheral vascular disease with left lower extremity rest pain. PROCEDURES PERFORMED: Aortography with left lower extremity runoff 12/11/2017, left iliofemoral prof undoplasty and left iliofemoral and profunda femoris endarterectomy with bovine pericardium patch ang ioplasty 12/13/2017. HISTORY OF PRESENT ILLNESS/HOSPITAL COURSE: The patient is a 57-year-old inveterate smoker. About 3 years ago she lost her right leg when a femoral popliteal graft for limb salvage failed. She has re cently completed chemotherapy and radiation therapy for a clinical stage III lung cancer. She presen juan pablo with progression of rest pain in her remaining left leg over the course of about 2 months. The p atient voiced an ability to mobilize with the use of a walker in addition to being able to balance on that leg for transfers. She underwent arteriography which demonstrated progression of her profunda disease that had been demonstrated at arteriography a few years ago. She had a trifurcation vessel d isease that was far from optimal for bypass. She was taken to the operating room for a profundoplast y, endarterectomies were performed on the iliofemoral system, the profunda proper and a relatively la rge branch passing in between the profunda and superficial femoral artery coming off of the posterior aspect of the distal common femoral. In the recovery room, she had quite gratifying improvement in Doppler signals in the dorsalis pedis and posterior tibial positions. She had an uneventful overnigh t stay in the Intensive Care Unit and today on postoperative day #1, her foot is feeling better. She has good Doppler signal still in her foot which is a little bit warmer and considerably pinker than it was preoperatively. Her pain is under good control. She will be discharged now with prescription for Vicodin as needed for pain. She is to add a baby aspirin a day to her home regimen. I will joni n on seeing her in the office in roughly 2 weeks for a wound check.
[2017-12-14 07:20] VITALS: TEMP 98.1
== END 2017-12-14 08:40 | disposition home or self-care (01) | DRG 253 ==
LOC: ERS 02:35 → ONC 03:53 → CCU 12-13 16:14
PROVIDERS: ADMIT Family Medicine; ATTEND Family Medicine
PROC: B41D1ZZ Fluoroscopy of Aorta and Bilateral Lower Extremity Arteries using Low Osmolar Contrast (ICD-10-PCS; principal; 2017-12-11)
PROC: 04CL0ZZ Extirpation of Matter from Left Femoral Artery, Open Approach (ICD-10-PCS; 2017-12-13)
PROC: 04UL0JZ Supplement Left Femoral Artery with Synthetic Substitute, Open Approach (ICD-10-PCS; 2017-12-13)
DX: I73.89 Other specified peripheral vascular diseases (principal); N17.9 Acute kidney failure, unspecified; Z85.118 Personal history of other malignant neoplasm of bronchus and lung; Z95.0 Presence of cardiac pacemaker; D53.9 Nutritional anemia, unspecified; F17.210 Nicotine dependence, cigarettes, uncomplicated; I12.9 Hypertensive chronic kidney disease with stage 1 through stage 4 chronic kidney disease, or unspecified chronic kidney disease; N18.9 Chronic kidney disease, unspecified
CPT/HCPCS: 36246; 36247; 36415; 75630; 75710; 76942; 80048; 80053; 82607; 82746; 83735; 84100; 85025; 85060; 85610; 85730; 86850; 86900; 86901; 90471; 90732; 93005; 96374; 99152; 99153; A4216; C1725; C1769; G0009; G8978-GP-CK; G8979-GP-CI; J1100; J1170; J1644; J2001; J2250; J2270; J2405; J2704; J2720; J3010; J3490; J7050

== ENCOUNTER 2018-01-22 03:11 | Emergency (ER) | payer MEDICARE, MEDICAID ==
[2018-01-22] MEDS ORDERED: EPINEPHrine 1 MG/10 ML Abboject SYRINGE ONE (03:47)
[2018-01-22] MEDS ORDERED: EPINEPHrine 1 MG/ML AMP ONE (03:48)
[2018-01-22] MEDS ORDERED: Water For Injection,Sterile 20 ML ONE (03:48)
[2018-01-22] MEDS ORDERED: Famotidine/PF 20 mg/2ml Vial ONE (03:48)
[2018-01-22] MEDS ORDERED: methylPREDNISolone Sod Succ/PF 125 MG/2 ML VIAL ONE (03:48)
[2018-01-22 03:52] LABS: #Eosinphils 0.1 thou/uL (0.0-0.7); #Lymphocytes 1.4 thou/uL (1.20-3.40); #Monocytes 0.2 thou/uL (0.11-0.59); #Neutrophils 1.4 thou/uL (1.40-6.50); %Basophils 0.5 % (0.0-1.0); %Eosinophils 3.4 % (0.0-10.0); %Monocytes 5.7 % (0.0-10.0); %Neutrophils 45.4 % (42.0-75.0); Hemoglobin 14.4 g/dL (12.0-16.0); Mean Corpuscular HGB CONC 33.3 g/dL (32.0-36.0); Mean Corpuscular Hemoglobin 33.9 pg (27.0-31.0); Mean Platelet Volume 8.6 fL (7.4-10.4); Platelet Count 137 thou/uL (130-400); RBC Distribution Width 12.7 % (11.5-14.5); Red Blood Cell (RBC) Count 4.25 mill/uL (4.20-5.40); White Blood Cell (WBC) Count 3.1 thou/uL (4.8-10.8)
[2018-01-22 04:12] LABS: ALT (SGPT) 17 U/L (8-55); AST (SGOT) 22 U/L (5-34); Albumin 4.1 g/dL (3.5-5.0); Alkaline Phosphatase 93 U/L (40-150); Anion Gap 13 mmol/L (10-20); BUN (Urea Nitrogen) 15 mg/dL (9.8-20.1); Bilirubin, Total 0.2 mg/dL (0.2-1.2); Calc. Creatinine Clearance 0 mL/min (70-130); Calcium 9.3 mg/dL (7.8-10.44); Carbon Dioxide 20 mmol/L (22-29); Chloride 108 mmol/L (98-107); Estimated GFR-MDRD 77; Globulin 3.2 g/dL (2.4-3.5); Glucose 188 mg/dL (70-105); Potassium 3.1 mmol/L (3.5-5.1); Protein, Total 7.3 g/dL (6.0-8.3); Sodium 138 mmol/L (136-145)
[2018-01-22 04:17] LABS: Troponin I Less than 0.010 ng/mL (< 0.028)
--- NOTE | 2018-01-22 08:20 | RAD ---
RADIOGRAPH CHEST 1 VIEW: HISTORY: A 57-year-old female with chest pain. FINDINGS: There is no air space density, pulmonary edema, or pneumothorax. The lateral costophrenic angles are sharp. There is a right subclavian implantable vascular access port with distal tip overlying the S VC. There is a dual-lead left subclavian pacemaker. IMPRESSION: No acute pulmonary findings. yaz [] POS: JOCELYN
== END 2018-01-22 08:17 | disposition home or self-care (01) ==
LOC: ERS 03:11
DX: T78.40XA Allergy, unspecified, initial encounter (principal); Z71.6 Tobacco abuse counseling; E78.5 Hyperlipidemia, unspecified; I10 Essential (primary) hypertension; F17.210 Nicotine dependence, cigarettes, uncomplicated; Z79.899 Other long term (current) drug therapy
CPT/HCPCS: 36415; 71045; 80053; 82553; 83880; 84484; 85025; 93005; 96372; 96374; 96375; 99406; J0171; J2930; S0028

== ENCOUNTER 2018-01-25 10:23 | Outpatient (CLI) | payer MEDICARE, MEDICAID ==
--- NOTE | 2018-01-25 15:39 | PET ---
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 Patient had last radiation therapy on 09/27/17 and last chemotherapy on 11/16/17. Exam requested for restagin g. RADIOPHARMACEUTICAL: 14 mCi FDG intravenously COMPARISON: 08/15/17 FINDINGS: There has been interval resolution of the hypermetabolic activity in the right middle lobe lung nodul e noted on the previous study. No krysta hypermetabolism is seen in the neck, chest, abdomen, or pelvi s. No hypermetabolic liver, adrenal, or skeletal lesions are seen. There is physiologic activity in the GI and tracts, heart, and visualized portions of the brain. The CT scan used for attenuation correction demonstrates no evidence of pleural effusions or ascites. Uterine fibroids and colonic diverticulosis again seen. IMPRESSION: Interval resolution of abnormal FDG localization in the right lung malignancy and subcarinal lymph no mo metastasis since 08/15/17. No hypermetabolic lesions are seen on the current exam. POS: JOCELYN
== END 2018-01-25 10:24 | disposition home or self-care (01) ==
LOC: PET 10:23
PROVIDERS: ATTEND Internal Medicine Hematology & Oncology
DX: C34.01 Malignant neoplasm of right main bronchus (principal); C77.9 Secondary and unspecified malignant neoplasm of lymph node, unspecified
CPT/HCPCS: 78815; A9552

== ENCOUNTER 2018-02-16 09:45 | Day surgery (SDC) | payer MEDICARE, MEDICAID ==
[2018-02-16] MEDS ORDERED: DURVALUMAB 500 MG, DURVALUMAB 240 MG in Sodium Chloride 0.9% 100 ML IV SCH (10:45)
[2018-02-16 11:16] VITALS: BP 103/65; TEMP 98.6
== END 2018-02-16 12:38 | disposition home or self-care (01) ==
LOC: ONC/OP 09:45
PROVIDERS: ATTEND Internal Medicine Hematology & Oncology
DX: Z51.11 Encounter for antineoplastic chemotherapy (principal); C34.11 Malignant neoplasm of upper lobe, right bronchus or lung; E78.5 Hyperlipidemia, unspecified; I10 Essential (primary) hypertension; F17.210 Nicotine dependence, cigarettes, uncomplicated; Z95.0 Presence of cardiac pacemaker; Z79.899 Other long term (current) drug therapy; Z88.0 Allergy status to penicillin; M79.605 Pain in left leg
CPT/HCPCS: 96413; C9492; J7050

== ENCOUNTER 2018-02-16 12:41 | Outpatient (CLI) | payer MEDICARE, MEDICAID ==
--- NOTE | 2018-02-16 13:53 | ULT ---
ULTRASOUND WITH DOPPLER DUPLEX VENOUS LOWER EXTREMITY LEFT: CPT: 99997 ICD-10-PCS: B54D INDICATION: Pain and edema. TECHNIQUE: Color flow Doppler, spectral waveform analysis of pulsed Doppler, and lagos-scale imaging with gloria wilian and augmentation, were used to evaluate the left common femoral, femoral, popliteal, posterior t ibial, and superficial femoral, veins; and the proximal portions of the profunda femoral and greater saphenous, veins. FINDINGS: There is appropriate compressibility and flow within the imaged deep vein system of the left lower ex tremity. IMPRESSION: No deep venous thrombosis. POS: GILA
== END 2018-02-16 12:42 | disposition home or self-care (01) ==
LOC: BICULT 12:41
PROVIDERS: ATTEND Family Medicine
DX: R60.0 Localized edema (principal)

== ENCOUNTER 2018-03-02 08:26 | Day surgery (SDC) | payer MEDICARE, MEDICAID ==
[2018-03-02] MEDS ORDERED: DURVALUMAB IV SCH (09:00)
[2018-03-02] MEDS ORDERED: SODIUM CHLORIDE 0.9% IV SCH (09:00)
[2018-03-02] MEDS ORDERED: Sodium Chloride 0.9% 20 ML ONE (09:03)
[2018-03-02 09:50] VITALS: BP 116/78; TEMP 98.6
== END 2018-03-02 17:32 | disposition home or self-care (01) ==
LOC: ONC/OP 08:26
PROVIDERS: ATTEND Internal Medicine Hematology & Oncology
DX: Z51.11 Encounter for antineoplastic chemotherapy (principal); C34.11 Malignant neoplasm of upper lobe, right bronchus or lung; E78.5 Hyperlipidemia, unspecified; I10 Essential (primary) hypertension; F17.210 Nicotine dependence, cigarettes, uncomplicated; Z95.0 Presence of cardiac pacemaker; Z88.0 Allergy status to penicillin; M79.605 Pain in left leg; Z79.899 Other long term (current) drug therapy
CPT/HCPCS: 96413; C9492; J1642; J7050

== ENCOUNTER 2018-03-20 09:33 | Outpatient (CLI) | payer MEDICARE, MEDICAID ==
--- NOTE | 2018-03-20 11:37 | ULT ---
ULTRASOUND WITH DOPPLER DUPLEX VENOUS LOWER EXTREMITY LEFT: HISTORY: 57-year-old male with left lower extremity pain. TECHNIQUE: Color flow Doppler, spectral waveform analysis of pulsed Doppler, and lagos-scale imaging with gloria wilian and augmentation, were used to evaluate the left common femoral, femoral, popliteal, posterior t ibial, and superficial femoral, veins; and the proximal portions of the profunda femoral and greater saphenous, veins. FINDINGS: There is normal compressibility, demonstration of blood flow by color Doppler and pulsed Doppler, and response to augmentation, in all interrogated veins. IMPRESSION: Negative. No deep vein thrombosis in the left lower extremity. yaz POS: JOCELYN
== END 2018-03-20 09:34 | disposition home or self-care (01) ==
LOC: ULT 09:33
PROVIDERS: ATTEND Family Medicine
DX: C34.90 Malignant neoplasm of unspecified part of unspecified bronchus or lung (principal); M25.562 Pain in left knee; M79.605 Pain in left leg

== ENCOUNTER 2018-03-23 10:53 | Day surgery (SDC) | payer MEDICARE, MEDICAID ==
[2018-03-23] MEDS ORDERED: Sodium Chloride 0.9% 20 ML ONE (11:07)
[2018-03-23 11:09] VITALS: BP 134/94; TEMP 98.4
[2018-03-23] MEDS ORDERED: SODIUM CHLORIDE 0.9% IV SCH (11:15)
[2018-03-23] MEDS ORDERED: DURVALUMAB IV SCH (11:15)
== END 2018-03-23 13:37 | disposition home or self-care (01) ==
LOC: ONC/OP 10:53
PROVIDERS: ATTEND Internal Medicine Hematology & Oncology
DX: Z51.12 Encounter for antineoplastic immunotherapy (principal); C34.11 Malignant neoplasm of upper lobe, right bronchus or lung; E78.5 Hyperlipidemia, unspecified; I10 Essential (primary) hypertension; F17.210 Nicotine dependence, cigarettes, uncomplicated; Z79.899 Other long term (current) drug therapy; Z88.0 Allergy status to penicillin; Z95.0 Presence of cardiac pacemaker
CPT/HCPCS: 36415; 80053; 82248; 83615; 84100; 84436; 84443; 84550; 96413; C9492; J1642; J7050; J9173

== ENCOUNTER 2018-04-06 09:55 | Day surgery (SDC) | payer MEDICARE, MEDICAID ==
[2018-04-06 10:24] VITALS: BP 137/75; TEMP 98.3
[2018-04-06] MEDS ORDERED: SODIUM CHLORIDE 0.9% IV SCH (10:30)
[2018-04-06] MEDS ORDERED: DURVALUMAB IV SCH (10:30)
[2018-04-06] MEDS ORDERED: Sodium Chloride 0.9% 20 ML ONE (10:43)
== END 2018-04-06 16:14 | disposition home or self-care (01) ==
LOC: ONC/OP 09:55
PROVIDERS: ATTEND Internal Medicine Hematology & Oncology
DX: Z51.12 Encounter for antineoplastic immunotherapy (principal); C34.11 Malignant neoplasm of upper lobe, right bronchus or lung; F17.210 Nicotine dependence, cigarettes, uncomplicated; I25.2 Old myocardial infarction; E78.00 Pure hypercholesterolemia, unspecified; I10 Essential (primary) hypertension; Z79.899 Other long term (current) drug therapy; Z88.0 Allergy status to penicillin; Z95.0 Presence of cardiac pacemaker
CPT/HCPCS: 96413; C9492; J1642; J7050; J9173

== ENCOUNTER 2018-04-20 10:41 | Day surgery (SDC) | payer MEDICARE, MEDICAID ==
[~2018-04-20 10:41] MED LIST changes: +DURVALUMAB IV SCH; -Iopamidol 370 76% 100 ML VIAL ONE; +SODIUM CHLORIDE 0.9% IV SCH; +Sodium Chloride 0.9% 0 ML ONE
[2018-04-20] MEDS ORDERED: Sodium Chloride 0.9% 200 ML ONE (12:02)
[2018-04-20 12:39] VITALS: BP 131/72; TEMP 98.5
== END 2018-04-20 13:25 | disposition home or self-care (01) ==
LOC: ONC/OP 10:41
PROVIDERS: ATTEND Internal Medicine Hematology & Oncology
DX: Z51.11 Encounter for antineoplastic chemotherapy (principal); C34.11 Malignant neoplasm of upper lobe, right bronchus or lung; I25.2 Old myocardial infarction; E78.00 Pure hypercholesterolemia, unspecified; I10 Essential (primary) hypertension; F17.210 Nicotine dependence, cigarettes, uncomplicated; Z79.899 Other long term (current) drug therapy; Z88.0 Allergy status to penicillin; Z95.0 Presence of cardiac pacemaker; Z89.512 Acquired absence of left leg below knee
CPT/HCPCS: 96413; C9492; J7050; J9173

== ENCOUNTER 2018-04-26 08:47 | Emergency (ER) | payer MEDICARE, OTHER ==
[2018-04-26 10:20] LABS: #Eosinphils 0.3 thou/uL (0.0-0.7); #Lymphocytes 1.8 thou/uL (1.20-3.40); #Monocytes 1.3 thou/uL (0.11-0.59); #Neutrophils 7.6 thou/uL (1.40-6.50); %Basophils 0.4 % (0.0-1.0); %Eosinophils 2.8 % (0.0-10.0); %Monocytes 11.8 % (0.0-10.0); %Neutrophils 68.9 % (42.0-75.0); Hemoglobin 12.1 g/dL (12.0-16.0); Mean Corpuscular HGB CONC 32.9 g/dL (32.0-36.0); Mean Corpuscular Hemoglobin 32.6 pg (27.0-31.0); Mean Platelet Volume 8.2 fL (7.4-10.4); Platelet Count 194 thou/uL (130-400); RBC Distribution Width 12.5 % (11.5-14.5); Red Blood Cell (RBC) Count 3.71 mill/uL (4.20-5.40); White Blood Cell (WBC) Count 10.9 thou/uL (4.8-10.8)
[2018-04-26 10:38] LABS: ALT (SGPT) 11 U/L (8-55); AST (SGOT) 13 U/L (5-34); Albumin 3.9 g/dL (3.5-5.0); Alkaline Phosphatase 120 U/L (40-150); Anion Gap 14 mmol/L (10-20); BUN (Urea Nitrogen) 10 mg/dL (9.8-20.1); Bilirubin, Total 0.3 mg/dL (0.2-1.2); Calc. Creatinine Clearance 0 mL/min (70-130); Calcium 9.2 mg/dL (7.8-10.44); Carbon Dioxide 24 mmol/L (22-29); Chloride 105 mmol/L (98-107); Estimated GFR-MDRD 84; Globulin 3.4 g/dL (2.4-3.5); Glucose 98 mg/dL (70-105); Potassium 3.9 mmol/L (3.5-5.1); Protein, Total 7.3 g/dL (6.0-8.3); Sodium 139 mmol/L (136-145)
--- NOTE | 2018-04-26 11:58 | RAD ---
FRONTAL VIEW CHEST: Date: 04/26/18 COMPARISON: 01/22/18. CLINICAL INDICATION: Cough. FINDINGS: There is enlargement of the cardiac silhouette and pulmonary vasculature with interstitial prominence bilaterally. Left-sided cardiac pacing device remains. Right chest port is again seen. IMPRESSION: Findings which favor fluid overload from decompensated CHF. Recommend clinical correlation, as well a s imaging follow-up to confirm resolution. POS: TPC
== END 2018-04-26 12:57 | disposition home or self-care (01) ==
LOC: ERS 08:47
DX: J44.1 Chronic obstructive pulmonary disease with (acute) exacerbation (principal); Z71.6 Tobacco abuse counseling; I25.10 Atherosclerotic heart disease of native coronary artery without angina pectoris; E78.5 Hyperlipidemia, unspecified; I10 Essential (primary) hypertension; F17.210 Nicotine dependence, cigarettes, uncomplicated; Z79.899 Other long term (current) drug therapy
CPT/HCPCS: 36415; 71045; 80053; 83880; 84484; 85025; 94640; J7620

== ENCOUNTER 2018-05-04 06:24 | Day surgery (SDC) | payer MEDICARE, MEDICAID ==
[~2018-05-04 06:24] MED LIST changes: -Sodium Chloride 0.9% 0 ML ONE
[2018-05-04] MEDS ORDERED: Sodium Chloride 0.9% 20 ML ONE (10:20)
[2018-05-04 10:48] VITALS: BP 130/68; TEMP 98.3
== END 2018-05-04 13:24 | disposition home or self-care (01) ==
LOC: ONC/OP 06:24
PROVIDERS: ATTEND Internal Medicine Hematology & Oncology
DX: Z51.12 Encounter for antineoplastic immunotherapy (principal); C34.11 Malignant neoplasm of upper lobe, right bronchus or lung; I10 Essential (primary) hypertension; I25.2 Old myocardial infarction; E78.00 Pure hypercholesterolemia, unspecified; F17.210 Nicotine dependence, cigarettes, uncomplicated; Z88.0 Allergy status to penicillin; Z95.0 Presence of cardiac pacemaker
CPT/HCPCS: 96413; C9492; J1642; J7050; J9173

== ENCOUNTER 2018-05-16 08:44 | Outpatient (CLI) | payer MEDICARE, MEDICAID ==
[2018-05-16] MEDS ORDERED: Iopamidol 370 76% 100 ML VIAL ONE (10:22)
--- NOTE | 2018-05-16 11:59 | CT ---
CT OF THE CHEST WITH IV CONTRAST CT OF THE ABDOMEN WITH IV CONTRAST: Date: 05/16/18 HISTORY: 57-year-old female with history of lung cancer, status post chemo and radiation therapy, with pacemak er and MediPort placement. CONTRAST: 70 mL [id number]. COMPARISON: PET CT from [facility] dated 01/26/[address] of the thorax dated 07/24/17. Compar isons are also made with a prior CTA of the abdomen and pelvis dated 07/23/13. FINDINGS: The area of wedge-like nodular scar with surrounding linear opacities within the right middle lobe in the region of the previously seen spiculated right middle lobe pulmonary nodule demonstrates further areas of progressive surrounding ground-glass opacities and interstitial prominence likely related t o therapy changes from radiation therapy. There are areas of bronchiectasis within the right middle l obe. The nodular opacity known to be related to cancer is not distinctly seen. It is therefore diffic ult to provide a measurement comparison. There has been interval development of patchy interstitial and air space opacity with surrounding bro nchiectasis involving the superior segment of the right lower lobe. This is fairly well demarcated an d geographic and may reflect an additional region of radiation-induced pneumonitis and fibrosis. Pneu monia cannot be entirely excluded based on the images. There is a small ground-glass nodule within the posterior segment of the right upper lobe which is ne w. Scattered emphysema is stable. The mildly prominent prevascular and pretracheal lymph nodes are st able. The mildly prominent subcarinal lymph node is stable. These have not intervally increased in si ze from the most recent comparison dated 01/25/18. There is a right IJ chest wall port. There is a left subclavian pacemaker in place. There are scatter ed vascular calcifications. Bilateral adrenal nodules have been stable since 2007 and are likely benign. There are renal vascular calcifications bilaterally which are stable. No suspicious lesion is seen wi thin the liver, spleen, or pancreas. No focal renal lesion is evident. No free fluid or enlarged lymp h nodes are evident. There are scattered diverticula involving the visualized colon. There are severe vascular calcifications involving the abdominal aorta. No suspicious osteolytic or osteoblastic lesion is evident. There is increased sclerosis involving th e anterior right third rib that may reflect a healing rib fracture or potentially changes of radiatio n osteitis. Continued surveillance of this lesion is recommended. This was present on the comparison PET CT without associated increased SUV activity. IMPRESSION: 1. Findings likely reflecting sequelae of response to therapy. There is increased interstitial and a ir space opacity seen within the region of the spiculated pulmonary nodule of the lateral right middl e lobe. 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 There is an josue tional area of air space opacity with interstitial prominence and bronchiectasis involving the superi or segment of the right lower lobe, also suspicious for an additional area of radiation-induced pneum onitis and scarring. A component of pneumonia within this area cannot be entirely excluded. Recommend correlation for symptoms and signs of pneumonia. CT followup recommended. 2. New posterior segment right upper lobe ground-glass nodule may reflect a similar process ongoing within the superior segment of the right lower lobe. Short-term follow-up in 6-[address] o f the thorax is recommended. 3. Stable emphysema. 4. Mildly prominent subcarinal, pretracheal, and prevascular lymph nodes, stable since the recent PE T CT with no interval increase in size to suggest recurrent malignant lymphadenopathy. 5. Bilateral adrenal nodules, stable since 2007, are likely benign. 6. No evidence of metastatic disease within the abdomen or pelvis. 7. 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 Continued follow-up is recommended. POS: Kayode
== END 2018-05-16 08:45 | disposition home or self-care (01) ==
LOC: BICCT 08:44
PROVIDERS: ATTEND Internal Medicine Hematology & Oncology
DX: C34.11 Malignant neoplasm of upper lobe, right bronchus or lung (principal); R91.8 Other nonspecific abnormal finding of lung field; E27.8 Other specified disorders of adrenal gland; M89.9 Disorder of bone, unspecified
CPT/HCPCS: 71260; 74160

== ENCOUNTER 2018-05-16 15:39 | Emergency (ER) | payer MEDICARE, OTHER ==
[2018-05-16 17:59] LABS: #Eosinphils 0.4 thou/uL (0.0-0.7); #Lymphocytes 1.5 thou/uL (1.20-3.40); #Monocytes 0.7 thou/uL (0.11-0.59); #Neutrophils 3.5 thou/uL (1.40-6.50); %Basophils 0.3 % (0.0-1.0); %Eosinophils 5.8 % (0.0-10.0); %Lymphocytes 25.2 % (21.0-51.0); %Monocytes 11.8 % (0.0-10.0); %Neutrophils 56.9 % (42.0-75.0); Hemoglobin 12.4 g/dL (12.0-16.0); Mean Corpuscular HGB CONC 32.6 g/dL (32.0-36.0); Mean Corpuscular Hemoglobin 32.7 pg (27.0-31.0); Mean Platelet Volume 7.8 fL (7.4-10.4); Platelet Count 218 thou/uL (130-400); White Blood Cell (WBC) Count 6.1 thou/uL (4.8-10.8)
[2018-05-16 18:17] LABS: Anion Gap 12 mmol/L (10-20); BUN (Urea Nitrogen) 14 mg/dL (9.8-20.1); Calc. Creatinine Clearance 0 mL/min (70-130); Calcium 9.4 mg/dL (7.8-10.44); Carbon Dioxide 25 mmol/L (22-29); Chloride 105 mmol/L (98-107); Estimated GFR-MDRD 59; Glucose 127 mg/dL (70-105); Potassium 3.4 mmol/L (3.5-5.1); Sodium 139 mmol/L (136-145); Uric Acid 8.8 mg/dL (2.6-6.0)
--- NOTE | 2018-05-16 18:21 | RAD ---
LEFT FOOT FIFTH DIGIT THREE VIEWS: 05/16/18 HISTORY: Pain. Swelling. FINDINGS: No fracture. No cortical irregularity or periosteal reaction. Lis Franc aligment is preserved. IMPRESSION: Unremarkable exam. POS: JOCELYN
[2018-05-16] MEDS ORDERED: Colchicine 0.6 MG TAB PO SCH (19:00)
== END 2018-05-16 19:13 | disposition home or self-care (01) ==
LOC: ERS 15:39
DX: M10.9 Gout, unspecified (principal); E78.5 Hyperlipidemia, unspecified; I10 Essential (primary) hypertension; Z79.899 Other long term (current) drug therapy
CPT/HCPCS: 36415; 71260; 74160; 80048; 84550; 85025; Q9967

== ENCOUNTER 2018-05-18 10:08 | Day surgery (SDC) | payer MEDICARE, MEDICAID ==
[2018-05-18] MEDS ORDERED: Sodium Chloride 0.9% 20 ML ONE (10:37)
[2018-05-18 10:47] VITALS: BP 121/72; TEMP 98.7
== END 2018-05-18 12:20 | disposition home or self-care (01) ==
LOC: ONC/OP 10:08
PROVIDERS: ATTEND Internal Medicine Hematology & Oncology
DX: Z51.12 Encounter for antineoplastic immunotherapy (principal); C34.11 Malignant neoplasm of upper lobe, right bronchus or lung; I10 Essential (primary) hypertension; I25.2 Old myocardial infarction; E78.00 Pure hypercholesterolemia, unspecified; F17.210 Nicotine dependence, cigarettes, uncomplicated; Z88.0 Allergy status to penicillin; Z95.0 Presence of cardiac pacemaker
CPT/HCPCS: 96413; C9492; J1642; J7050; J9173

== ENCOUNTER 2018-06-01 11:50 | Day surgery (SDC) | payer MEDICARE, MEDICAID ==
[2018-06-01] MEDS ORDERED: Sodium Chloride 0.9% 20 ML ONE (12:28)
[2018-06-01 12:32] VITALS: BP 130/83; TEMP 97.6
== END 2018-06-01 14:33 | disposition home or self-care (01) ==
LOC: ONC/OP 11:50
PROVIDERS: ATTEND Internal Medicine Hematology & Oncology
DX: Z51.12 Encounter for antineoplastic immunotherapy (principal); C34.11 Malignant neoplasm of upper lobe, right bronchus or lung; Z88.0 Allergy status to penicillin
CPT/HCPCS: 96413; C9492; J1642; J7050; J9173

== ENCOUNTER 2018-06-15 11:40 | Day surgery (SDC) | payer MEDICARE, MEDICAID ==
[2018-06-15 12:17] VITALS: BP 132/76; TEMP 98.3
[2018-06-15] MEDS ORDERED: Sodium Chloride 0.9% 20 ML ONE (12:31)
== END 2018-06-15 14:52 | disposition home or self-care (01) ==
LOC: ONC/OP 11:40
PROVIDERS: ATTEND Internal Medicine Hematology & Oncology
DX: Z51.12 Encounter for antineoplastic immunotherapy (principal); C34.11 Malignant neoplasm of upper lobe, right bronchus or lung; I10 Essential (primary) hypertension; E78.00 Pure hypercholesterolemia, unspecified; Z95.0 Presence of cardiac pacemaker; Z88.0 Allergy status to penicillin; Z79.82 Long term (current) use of aspirin; Z79.899 Other long term (current) drug therapy
CPT/HCPCS: 36415; 80053; 82248; 83615; 84100; 84436; 84443; 84550; 96413; C9492; J1642; J7050; J9173

== ENCOUNTER 2018-06-28 10:03 | Day surgery (SDC) | payer MEDICARE, MEDICAID ==
[2018-06-28] MEDS ORDERED: Sodium Chloride 0.9% 30 ML ONE (10:41)
[2018-06-28 11:05] VITALS: BP 119/78; TEMP 97.6
== END 2018-06-28 11:57 | disposition home or self-care (01) ==
LOC: ONC/OP 10:03
PROVIDERS: ATTEND Internal Medicine Hematology & Oncology
DX: Z51.12 Encounter for antineoplastic immunotherapy (principal); C34.11 Malignant neoplasm of upper lobe, right bronchus or lung; Z88.0 Allergy status to penicillin
CPT/HCPCS: 96413; C9492; J1642; J3490; J9173

== ENCOUNTER → 2018-07-13 | Day surgery (SDC) | payer MEDICARE, MEDICAID ==
[~2018-07-13] MED LIST changes: +Sodium Chloride 0.9% 20 ML ONE
[2018-07-13 13:36] VITALS: BP 129/90; TEMP 98.6
== END ==
LOC: ONC/OP 10:01
PROVIDERS: ATTEND Internal Medicine Hematology & Oncology
DX: Z51.12 Encounter for antineoplastic immunotherapy (principal); C34.11 Malignant neoplasm of upper lobe, right bronchus or lung; Z88.0 Allergy status to penicillin
CPT/HCPCS: 96413; C9492; J1642; J3490; J9173

== ENCOUNTER 2018-07-27 10:03 | Day surgery (SDC) | payer MEDICARE, MEDICAID ==
[~2018-07-27 10:03] MED LIST changes: -Sodium Chloride 0.9% 20 ML ONE
[2018-07-27] MEDS ORDERED: Sodium Chloride 0.9% 20 ML ONE (10:05)
== END 2018-07-27 16:45 | disposition home or self-care (01) ==
LOC: ONC/OP 10:03
PROVIDERS: ATTEND Internal Medicine Hematology & Oncology
DX: Z51.12 Encounter for antineoplastic immunotherapy (principal); C34.11 Malignant neoplasm of upper lobe, right bronchus or lung
CPT/HCPCS: 96413; C9492; J3490; J9173

== ENCOUNTER 2018-08-10 10:35 | Day surgery (SDC) | payer MEDICARE, MEDICAID | END 2018-08-10 12:06 | disposition home or self-care (01) | LOC: ONC/OP 10:35 | PROVIDERS: ATTEND Internal Medicine Hematology & Oncology | DX: Z51.12 Encounter for antineoplastic immunotherapy (principal); C34.11 Malignant neoplasm of upper lobe, right bronchus or lung; Z88.0 Allergy status to penicillin | CPT/HCPCS: 80053; 82248; 83615; 84100; 84436; 84443; 84550; 96413; C9492; J3490; J9173 ==

== ENCOUNTER 2018-08-17 08:23 | Outpatient (CLI) | payer MEDICARE, MEDICAID ==
--- NOTE | 2018-08-17 09:43 | CT ---
EXAM: CT chest, abdomen, and pelvis with IV contrast: HISTORY: Lung cancer with history of prior chemotherapy and radiation treatment. COMPARISON: CT chest and abdomen on 05/16/[address] exam on 01/25/2018 FINDINGS: CT THORAX: Lungs: Wedge-shaped area of linear and parenchymal densities and ground glass opacities in the right middle lobe with associated bronchiectasis are again seen. There has been minimal interval improvement in the parenchymal changes in the right middle lobe when compared to the prior exam. The wedge-shaped linear and parenchymal changes in the superior segment right lower lobe are also aga in noted which are stable to slightly improved when compared to the prior exam. Few scattered peripheral blebs are seen within the lungs bilaterally with findings suggesting mild em physematous changes. There is an approximately 8 mm nodular pleural-based density in the left lower lobe. This could be re lated to developing pulmonary nodule, but there is a central lower attenuation area present. Focal infectious or inflammatory process is a possibility, but pulmonary nodule is a differential considera tion. No additional pulmonary nodule or mass is seen. The previously described pulmonary nodule in the posterior aspect of the right upper lobe is no longer visualized. Pleura: No pleural effusion. Lymph nodes: There is a mildly enlarged right hilar lymph node measuring 1.6 cm in short axis dimensi on; this is more prominent than on the prior exam. Additional nonenlarged mediastinal lymph nodes are again seen and stable when compared to prior studies. Mediastinum: Dual-lead left subclavian cardiac pacemaking device remains in place. A right internal j ugular vein Mediport catheter is also present. Vascular calcifications are seen in the coronary arteries and involving the thoracic aorta. Chest wall: No abnormalities CT ABDOMEN AND PELVIS: Liver: Within normal limits. Gallbladder: Within normal limits. \ Pancreas: Within normal limits. Spleen: Within normal limits. Adrenal glands: Bilateral adrenal nodules are again seen and stable. Kidneys: Renal vascular calcifications are seen, but the kidneys otherwise have a normal CT appearanc e. Urinary Bladder: The urinary bladder is unremarkable. Reproductive organs: The uterus has a lobulated appearance with a partially calcified mass present li salvador due to fibroid uterus. Bowel: There is colonic diverticulosis. Loops of small bowel are normal in caliber. Adenopathy:No lymphadenopathy within the abdomen or pelvis. Peritoneum: No free fluid or fluid collection is seen. No free intraperitoneal gas is identified. Abdominal wall: There are postsurgical changes seen in the inguinal regions bilaterally with partial visualization of a right femoral bypass graft which is occluded at its most visualized proximal portion. However, this was noted on the CTA examination 2014. Osseous structures: There is stable minimal sclerosis involving the anterolateral right third rib whi ch again may be sequela of radiation osteitis. No additional lytic or sclerotic osseous lesion is appreciated. There are degenerative changes in the spine. IMPRESSION: 1. Newly developed pleural-based nodular density measuring 8 mm in the superior segment left lower lo be. Short interval follow-up examination is recommended. 2. Linear as well as groundglass and parenchymal densities within the right middle lobe and at the lanier perior segment right lower lobe each of which appears minimally improved when compared to the prior exam with less of a nodular component as seen on prior exam. These findings may be related to postrad iation type changes. These areas can again be reevaluated on follow-up examination. 3. Mildly enlarged right hilar lymph node. No additional enlarged mediastinal or hilar lymph nodes ar e appreciated. 4. Stable bilateral adrenal nodules. 5. No evidence of metastatic disease involving the abdomen or pelvis.
== END 2018-08-17 08:24 | disposition home or self-care (01) ==
LOC: CT 08:23
PROVIDERS: ATTEND Internal Medicine Hematology & Oncology
DX: C34.90 Malignant neoplasm of unspecified part of unspecified bronchus or lung (principal); J98.4 Other disorders of lung; R59.0 Localized enlarged lymph nodes; E27.8 Other specified disorders of adrenal gland
CPT/HCPCS: 71260; 74177

== ENCOUNTER 2018-08-20 07:35 | Outpatient (CLI) | payer MEDICARE, MEDICAID ==
[2018-08-20] MEDS ORDERED: Iopamidol 370 76% 100 ML VIAL ONE (09:51)
--- NOTE | 2018-08-20 11:21 | CT ---
CTA ABDOMEN AND PELVIS AND BILATERAL LOWER EXTREMITIES: Multiple axial tomograms obtained with iv enhancement following angio protocol, multiplanar reconstru ction, and 3D postprocessing. INDICATION: Unspecified atherosclerosis apache arteries bilateral legs. The technologist states there is a histo ry of a right AK amputation with pain in the left lower extremity and foot. Correlation was made to CTA study from 2015 which revealed a right fem-pop graft occlusion. The calvin ent is post right AK amputation in 2015. FINDINGS: The abdominal aorta shows atherosclerotic changes with calcification. There is no evidence of aneury sm or dissection in the abdominal aorta. There is significant stenosis involving the origin and proximal celiac artery. No significant stenosis in the visualized superior mesenteric artery. The renal arteries show no significant stenosis. The aortic bifurcation is patent. Atherosclerotic changes are seen in both iliac arteries without ev idence of significant stenosis. On the right, there is occlusion of the right superficial femoral artery at its origin, and there is occlusion of a right fem-pop graft which is partially imaged. On the left, the left internal and external iliacs are patent with diffuse atherosclerotic changes pr esent. The left common femoral artery is patent. There is aneurysmal dilatation of the left common femoral artery distally at its bifurcation. Diameter is measured at 1.4 cm. There is severe stenosis at the origin of the profunda. The distal profunda is patent. There is severe stenosis at the origin of the left superficial femoral artery. A string sign is seen at this origin on the coronal image. Left superficial femoral artery below this focal stenosis is patent, although diffuse atherosclerotic change is seen in the proximal and mid superficial femoral artery. The left superficial femoral artery occludes at Reyes's canal. The popliteal reconstitutes at the joint space via collaterals. Popliteal trifurcates below the knee space. Diffuse atherosclerotic change is seen in the 3 vessels below the knee. There appears to be occlusion of the perineal and posterior tibial artery in the mid calf. An anterior tibial artery in the mid calf. An anterior tibial artery and dorsal pedis artery are patent to the foot. SOFT TISSUES: Patchy atelectasis or infiltrate in the right lower lung, possibly right middle lobe only partially i lori on this study. Pneumonia cannot be excluded. Liver, spleen, pancreas, adrenal glands, and kidneys unremarkable. The visualized bowel loops are un remarkable with diverticulosis noted. IMPRESSION: 1. Atherosclerotic disease in the abdominal aorta as described. Significant stenosis at the origin of the celiac artery as noted. 2. 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 Severe stenosis at the origin of the left profunda and the left superficial femoral artery as described. 3. Occlusion of the left superficial femoral artery at Reyes's canal with disease below the knee on the left as described. 4. Patchy atelectasis or infiltrate in the right lower lung, possibly right middle lobe only partial ly evaluated. POS: [facility]
== END 2018-08-20 07:36 | disposition home or self-care (01) ==
LOC: CT 07:35
PROVIDERS: ATTEND Internal Medicine Cardiovascular Disease
DX: I70.203 Unspecified atherosclerosis of native arteries of extremities, bilateral legs (principal); I70.0 Atherosclerosis of aorta; I72.4 Aneurysm of artery of lower extremity; I70.208 Unspecified atherosclerosis of native arteries of extremities, other extremity
CPT/HCPCS: 75635

== ENCOUNTER 2018-09-07 10:50 | Day surgery (SDC) | payer MEDICARE, MEDICAID ==
[2018-09-07] MEDS ORDERED: Sodium Chloride 0.9% 20 ML ONE (11:34)
[2018-09-07 11:44] VITALS: BP 111/71; TEMP 97.5
== END 2018-09-07 14:58 | disposition home or self-care (01) ==
LOC: ONC/OP 10:50
PROVIDERS: ATTEND Internal Medicine Hematology & Oncology
DX: Z51.12 Encounter for antineoplastic immunotherapy (principal); C34.11 Malignant neoplasm of upper lobe, right bronchus or lung; Z88.0 Allergy status to penicillin
CPT/HCPCS: 36415; 80053; 82248; 83615; 84100; 84436; 84443; 84550; 96413; J1642

== ENCOUNTER 2018-09-20 09:39 | Day surgery (SDC) | payer MEDICARE, MEDICAID ==
[2018-09-20] MEDS ORDERED: Sodium Chloride 0.9% 20 ML ONE (10:20)
== END 2018-09-20 12:15 | disposition home or self-care (01) ==
LOC: ONC/OP 09:39
PROVIDERS: ATTEND Internal Medicine Hematology & Oncology
DX: Z51.12 Encounter for antineoplastic immunotherapy (principal); C34.11 Malignant neoplasm of upper lobe, right bronchus or lung; Z88.0 Allergy status to penicillin
CPT/HCPCS: 96413; J1642; J3490; J9173

== ENCOUNTER 2018-10-05 09:54 | Day surgery (SDC) | payer MEDICARE, MEDICAID ==
[2018-10-05 10:26] VITALS: BP 150/82; TEMP 97.6
[2018-10-05] MEDS ORDERED: Sodium Chloride 0.9% 20 ML ONE (10:29)
== END 2018-10-05 11:54 | disposition home or self-care (01) ==
LOC: ONC/OP 09:54
PROVIDERS: ATTEND Internal Medicine Hematology & Oncology
DX: Z51.12 Encounter for antineoplastic immunotherapy (principal); C34.11 Malignant neoplasm of upper lobe, right bronchus or lung; Z88.0 Allergy status to penicillin
CPT/HCPCS: 96413; J1642; J3490; J9173

== ENCOUNTER 2018-10-19 09:57 | Day surgery (SDC) | payer MEDICARE, MEDICAID ==
[2018-10-19 10:09] VITALS: BP 135/72; TEMP 97.9
[2018-10-19] MEDS ORDERED: Sodium Chloride 0.9% 20 ML ONE (11:51)
== END 2018-10-19 12:04 | disposition home or self-care (01) ==
LOC: ONC/OP 09:57
PROVIDERS: ATTEND Internal Medicine Hematology & Oncology
DX: Z51.12 Encounter for antineoplastic immunotherapy (principal); C34.11 Malignant neoplasm of upper lobe, right bronchus or lung; Z88.0 Allergy status to penicillin
CPT/HCPCS: 96413; J1642; J3490; J9173

== ENCOUNTER 2018-11-14 08:41 | Outpatient (CLI) | payer MEDICARE, MEDICAID ==
--- NOTE | 2018-11-14 11:57 | CT ---
CT CHEST AND ABDOMEN WITH CONTRAST CLINICAL INDICATION: History of lung cancer post chemotherapy and radiation treatment. COMPARISON: 08/17/2018 and 05/16/2018 FINDINGS: Aorta: Vascular calcifications are seen in the thoracic as well as involving the abdominal aorta and visualized iliac arteries. Lungs: There are stable wedge-shaped areas of linear parenchymal and slight patchy densities in the r ight middle lobe and superior segment right lower lobe which may represent areas of scarring. No new discrete pulmonary nodule or mass is seen. A few scattered blebs are seen bilaterally related to emphysematous and mild chronic lung changes. No pleural effusion is seen. The nodular density in the left lower lobe previously mentioned on the prior exam is no visualized on this exam.. Mediastinum: Again noted is a dual-lead left subclavian cardiac pacemaking device. A right subclavian Mediport catheter also remains in place. The heart is mildly enlarged. There are stable nonenlarged mediastinal lymph nodes. Previously described prominent right hilar lymph node is smaller in size on today's exam and is less well delineated. Thyroid gland: Normal CT appearance. Osseous structures: Multilevel degenerative changes are again seen in the spine with slight grade 1 a nterolisthesis of L3 on L4 and slight retrolisthesis of L4 and L5. These findings were seen on CTA of the abdomen and pelvis on 08/20/2018. No lytic or sclerotic osseous lesion is seen Liver: Within normal limits. Spleen: Within normal limits. Pancreas: Within normal limits. Adrenal glands: Bilateral adrenal nodules are again seen with right adrenal nodule stable in size jim suring 2 cm, but the left adrenal nodule is slightly larger in size measuring 2.1 cm. Kidneys: Within normal limits. Bowel: Colonic diverticulosis is again seen. Opacified loops of small bowel are normal in caliber. Upper pelvis: There is partial visualization of a lobulated masslike density right hemipelvis also se en on study of 08/17/2018 and likely related to calcified uterine fibroid in adjacent right ovary. Lymph nodes: No enlarged lymph nodes are seen by CT size criteria. CT of the abdomen is not significantly changed compared to prior study. IMPRESSION: 1. Stable wedge-shaped linear parenchymal densities in the right middle lobe and superior segment rig ht lower lobe probably related to areas of scarring. Previously seen lucent centered nodular density at the left lung base is not identified on the current exam. No new discrete pulmonary nodule or mass is seen. 2. No enlarged lymph nodes are seen by CT size criteria. 3. Mild cardiomegaly. 4. Bilateral adrenal nodules with slight interval enlargement of the left adrenal nodule compared to prior studies on 08/17/2018 and 05/16/2018. Right adrenal nodule is stable in size.
[2018-11-14] MEDS ORDERED: Iopamidol 370 76% 100 ML VIAL ONE (16:38)
== END 2018-11-14 08:42 | disposition home or self-care (01) ==
LOC: CT 08:41
PROVIDERS: ATTEND Internal Medicine Hematology & Oncology
DX: C34.11 Malignant neoplasm of upper lobe, right bronchus or lung (principal); R91.8 Other nonspecific abnormal finding of lung field; I51.7 Cardiomegaly; E27.8 Other specified disorders of adrenal gland
CPT/HCPCS: 71260; 74160; Q9967

== ENCOUNTER 2018-11-15 08:17 | Outpatient (CLI) | payer MEDICARE, MEDICAID ==
--- NOTE | 2018-11-15 10:18 | CT ---
CT ANGIOGRAM PELVIS CT ANGIOGRAM RUNOFF TO THE FEET: HISTORY: Atherosclerosis. COMPARISON: CTA 08/20/2018. FINDINGS: There appears to be posttreatment change of the right middle lobe for which evaluation of the lungs s hould be referred to the CT from the prior day. No pericardial effusion. The liver, spleen, and pancreas are unremarkable. There seems to be mild p rominence of the common bile duct similar to the comparison examination measuring up to 7 mm. There is contrast throughout the colon. There appears to be anterior pedunculated partially calcifie d fibroid of the uterine fundus. No dilated loops of large or small bowel. The appendix is visualiz ed and is normal. No retroperitoneal or periaortic adenopathy. No acute osseous abnormality. VESSELS: There is high-grade narrowing of the ostia of the celiac trunk due to calcific plaque with adequate p eripheral vascular flow. The superior mesenteric artery is patent. Inferior mesenteric artery is pa tent. The renal ostia have less than 50% narrowing bilaterally due to calcific and soft plaque. No hydrone phrosis. Arcuate vessels are calcified. There is no aneurysmal dilatation of the visualized abdominal aorta. RIGHT SIDE: The common iliac artery is patent. The internal iliac artery is patent. External iliac artery has m ultifocal 30-50% stenoses. Complete occlusion right femoral artery and graft. LEFT SIDE: Common iliac arteries is patent. There is occlusion of the left obturator, middle rectal, and production intern al predental arteries. Unchanged aneurysmal dilatation left common femoral artery. Just after the aneurysmal dilatation of left [employer], there is occlusion of the femoral artery with craniocaudal length of 5 mm with some distal flow. Multifocal high-grade stenosis of the femoral artery with complete occlusion near the adductor hiatus for a length of 3 mm. There is also complete occlusion of the popliteal artery for a length of 4-5 cm. Minimal flow within the distal popliteal artery and then there is occlusion again for a l ength of 5 mm. No flow within the anterior tibial or posterior tibial arteries with minimal flow wit hin the peroneal artery. There is minimal flow within the dorsalis pedis artery. IMPRESSION: 1. 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 2. Complete occlusion of left femoral artery just after the aneurysmal dilatation of the common femo ral artery. 3. Multifocal high-grade stenoses of the left femoral artery and occlusions, multiple, of the left p opliteal artery. 4. Minimal flow in the trifurcation with occlusion of the posterior tibial and anterior tibial arter ies with a very small amount of flow within the dorsalis pedis artery. 5. High-grade narrowing of greater then 50% of the celiac trunk due to calcific and soft plaque. 6. Occlusion of the right lower extremity vasculature from the common femoral artery and femoral art hayes with some low-grade flow within the deep femoral artery. The right femoral arterial graft is occ luded. POS: CET
[2018-11-15] MEDS ORDERED: Iopamidol 370 76% 100 ML VIAL ONE (17:12)
== END 2018-11-15 08:18 | disposition home or self-care (01) ==
LOC: CT 08:17
PROVIDERS: ATTEND Thoracic Surgery (Cardiothoracic Vascular Surgery)
DX: I70.222 Atherosclerosis of native arteries of extremities with rest pain, left leg (principal); I70.8 Atherosclerosis of other arteries
CPT/HCPCS: 75635; Q9967

== ENCOUNTER 2018-11-16 10:12 | Day surgery (SDC) | payer MEDICARE, MEDICAID ==
[2018-11-16] MEDS ORDERED: Sodium Chloride 0.9% 20 ML ONE (10:49)
== END 2018-11-16 13:54 | disposition home or self-care (01) ==
LOC: ONC/OP 10:12
PROVIDERS: ATTEND Internal Medicine Hematology & Oncology
DX: Z51.12 Encounter for antineoplastic immunotherapy (principal); C34.11 Malignant neoplasm of upper lobe, right bronchus or lung; Z88.0 Allergy status to penicillin
CPT/HCPCS: 96413; J1642; J3490; J9173

== ENCOUNTER 2018-11-21 12:28 | Outpatient (CLI) | payer MEDICARE, MEDICAID ==
--- NOTE | 2018-11-21 13:22 | MMO ---
Bilateral MAMMO Bilat Screen DDI+AGUSTÍN. CLINICAL HISTORY: Patient is 58 years old and is seen for screening. The patient has no family history of breast cancer. The patient has a history of lung cancer. VIEWS: The views performed were: bilateral craniocaudal with tomosynthesis and bilateral mediolateral oblique with tomosynthesis. FILMS COMPARED: The present examination has been compared to prior imaging studies performed at [facility] on 06/19/2013, 02/25/2016 and 03/23/2017. MAMMOGRAM FINDINGS: There are scattered fibroglandular densities. There is an irregular mass measuring 10 millimeters with spiculated margins seen in the middle central region of the left breast. In the right breast, there are no suspicious masses, calcifications or areas of architectural distortion. IMPRESSION: MASS IN THE LEFT BREAST REQUIRES ADDITIONAL EVALUATION. RECOMMEND DIAGNOSTIC MAMMOGRAM. ULTRASOUND MAY ALSO PROVE USEFUL AT RECALL. THE RESULTS OF THIS EXAM WERE SENT TO THE PATIENT. ACR BI-RADS Category 0 - Incomplete: Need additional imaging evaluation. [facility] will notify the patient of the need for additional imaging services. MAMMOGRAPHY NOTE: 1. A negative mammogram report should not delay a biopsy if a dominant of clinically suspicious mass is present. 2. Approximately 10% to 15% of breast cancers are not detected by mammography. 3. Adenosis and dense breasts may obscure an underlying neoplasm. Reported by: XAVIER KATHLEEN MD Electonically Signed: [id number]
== END 2018-11-21 12:29 | disposition home or self-care (01) ==
LOC: BICMAMMO 12:28
PROVIDERS: ATTEND Family Medicine
DX: Z12.31 Encounter for screening mammogram for malignant neoplasm of breast (principal); N63.20 Unspecified lump in the left breast, unspecified quadrant; Z85.118 Personal history of other malignant neoplasm of bronchus and lung
CPT/HCPCS: 77063; 77067

== ENCOUNTER 2018-11-26 09:48 | Outpatient (CLI) | payer MEDICARE, MEDICAID ==
--- NOTE | 2018-11-26 10:57 | MMO ---
Left Breast MAMMO Unilat Diag DDI LT+AGUSTÍN. CLINICAL HISTORY: Patient is 58 years old and is seen for additional evaluation requested from prior study. The patient has no family history of breast cancer. The patient has a history of lung cancer. VIEWS: The views performed were: left craniocaudal spot compression with tomosynthesis; left mediolateral oblique spot compression with tomosynthesis; and left mediolateral with tomosynthesis. FILMS COMPARED: The present examination has been compared to prior imaging studies performed at [facility] on 02/25/2016, 03/23/2017, 11/21/2018 and 11/26/2018. This study has been interpreted with the assistance of computer-aided detection. MAMMOGRAM FINDINGS: There are scattered fibroglandular densities. There is an irregular mass measuring 7 millimeters seen in the lower-inner region of the left breast. IMPRESSION: MASS IN THE LEFT BREAST IS SUSPICIOUS. BIOPSY IS RECOMMENDED. THE RESULTS OF THIS EXAM WERE SENT TO THE PATIENT. ACR BI-RADS Category 4 - Suspicious abnormality - biopsy should be considered MAMMOGRAPHY NOTE: 1. A negative mammogram report should not delay a biopsy if a dominant of clinically suspicious mass is present. 2. Approximately 10% to 15% of breast cancers are not detected by mammography. 3. Adenosis and dense breasts may obscure an underlying neoplasm. Reported by: CAMILO SOSA MD Electonically Signed: [id number]
--- NOTE | 2018-11-26 12:59 | ULT ---
FOCUSED ULTRASOUND LEFT BREAST: DTAE: 11/26/2018. COMPARISON: None. HISTORY: Spiculated lesion noted on left breast mammography. FINDINGS: Focused ultrasound of the left breast at the 4 o'clock position approximately 8 cm from the nipple de monstrates a hypoechoic irregular shadowing lesion measuring 7 x 6 x 6 mm. This correlates in size a nd location with a mammographic abnormality and is suspicious for malignancy. IMPRESSION: BIRADS 4: Suspicious abnormality. Recommend ultrasound-guided core biopsy of the left breast lesion. Results were called to the ordering physician, Dr. Patel, at 10:45 a.m. 11/26/2018. CODE CR POS: OFF
== END 2018-11-26 09:49 | disposition home or self-care (01) ==
LOC: BICMAMMO 09:48
PROVIDERS: ATTEND Family Medicine
DX: N63.24 Unspecified lump in the left breast, lower inner quadrant (principal)
CPT/HCPCS: 76642; 77065; G0279

== ENCOUNTER 2018-11-30 10:39 | Day surgery (SDC) | payer MEDICARE, MEDICAID ==
[2018-11-30] MEDS ORDERED: Sodium Chloride 0.9% 20 ML ONE (10:40)
[2018-11-30 14:55] VITALS: BP 135/60; TEMP 98
== END 2018-11-30 14:55 | disposition home or self-care (01) ==
LOC: ONC/OP 10:39
PROVIDERS: ATTEND Internal Medicine Hematology & Oncology
DX: Z51.12 Encounter for antineoplastic immunotherapy (principal); C34.11 Malignant neoplasm of upper lobe, right bronchus or lung; Z88.0 Allergy status to penicillin
CPT/HCPCS: 96413; J1642; J3490; J9173

== ENCOUNTER 2018-12-04 08:35 | Emergency (ER) | payer MEDICARE, MEDICAID | END 2018-12-04 09:34 | disposition home or self-care (01) | LOC: ERS 08:35 | DX: J00 Acute nasopharyngitis [common cold] (principal); I49.9 Cardiac arrhythmia, unspecified; I25.10 Atherosclerotic heart disease of native coronary artery without angina pectoris; E78.5 Hyperlipidemia, unspecified; I11.0 Hypertensive heart disease with heart failure; Z79.01 Long term (current) use of anticoagulants; Z79.899 Other long term (current) drug therapy; Z79.891 Long term (current) use of opiate analgesic; Z79.51 Long term (current) use of inhaled steroids | CPT/HCPCS: 99281 ==

== ENCOUNTER → 2018-12-11 | Day surgery (SDC) | payer MEDICARE, MEDICAID ==
--- NOTE | 2018-12-11 14:01 | MMO ---
Left Breast MAMMO Unilat Diag DDI LT. CLINICAL HISTORY: Patient is 58 years old and is seen for diagnostic exam. The patient has no family history of breast cancer. The patient has a history of lung cancer. VIEWS: The views performed were: left craniocaudal and left mediolateral oblique. FILMS COMPARED: The present examination has been compared to prior imaging studies performed at [facility] on 03/23/2017, 11/21/2018 and 11/26/2018. This study has been interpreted with the assistance of computer-aided detection. MAMMOGRAM FINDINGS: There are scattered fibroglandular densities. There is an irregular mass with spiculated margins and associated biopsy clip seen in the middle region of the left breast at 4 o'clock. The patient is status post ultrasound guided biopsy of the mass. IMPRESSION: MASS IN THE LEFT BREAST IS SUSPICIOUS. AWAITING PATHOLOGY RESULTS. THE RESULTS OF THIS EXAM WERE SENT TO THE PATIENT. ACR BI-RADS Category 4 - Suspicious abnormality - biopsy should be considered MAMMOGRAPHY NOTE: 1. A negative mammogram report should not delay a biopsy if a dominant of clinically suspicious mass is present. 2. Approximately 10% to 15% of breast cancers are not detected by mammography. 3. Adenosis and dense breasts may obscure an underlying neoplasm. Reported by: VERONICA HARDING MD Electonically Signed: [id number]
--- NOTE | 2018-12-11 15:16 | ULT ---
ULTRASOUND GUIDED LEFT BREAST MASS BIOPSY: INDICATION: BIRADS category 4 left breast mass in the 4 o'clock position. TECHNIQUE: Preprocedure ultrasound was performed confirming the spiculated hypoechoic mass within the left breas t 4 o'clock position 8 cm from the nipple seen on the prior diagnostic evaluation dated 11/26/2018. Informed conent was obtained. A site overlying the left breast was prepped and draped in the usual sterile fashion. Buffered 1% Li docaine was administered to the overlying subcutaneous tissues. Ultrasound-guided sampling was perfo rmed utilizing a barred 14-gauge core biopsy device. Under ultrasound guidance, 4 separate core samp les were obtained through the lesion. Following the 4th core sample, a biopsy clip was placed within the lesion. The patient was held at the biopsy site until hemostasis was obtained. The patient darlin erated the procedure without difficulty. IMPRESSION: BIRADS category 4 - suspicious abnormality. Recommend awaiting pathology results. POS: OFF
== END ==
LOC: BICULT 12:27
PROVIDERS: ATTEND Family Medicine
PROC: 0HBU3ZX Excision of Left Breast, Percutaneous Approach, Diagnostic (ICD-10-PCS; principal; 2018-12-11)
DX: D05.12 Intraductal carcinoma in situ of left breast (principal); Z88.0 Allergy status to penicillin; Z85.118 Personal history of other malignant neoplasm of bronchus and lung
CPT/HCPCS: 19083; 88305

== ENCOUNTER → 2018-12-14 | Day surgery (SDC) | payer MEDICARE, MEDICAID ==
[2018-12-14 13:58] VITALS: BP 147/62; TEMP 97.9
== END ==
LOC: ONC/OP 10:41
PROVIDERS: ATTEND Internal Medicine Hematology & Oncology
DX: Z51.12 Encounter for antineoplastic immunotherapy (principal); C34.11 Malignant neoplasm of upper lobe, right bronchus or lung; Z88.0 Allergy status to penicillin
CPT/HCPCS: 96413; J3490; J9173

== ENCOUNTER 2018-12-31 11:10 | Day surgery (SDC) | payer MEDICARE, MEDICAID ==
[~2018-12-31 11:10] MED LIST changes: +DURVALUMAB 500 MG, DURVALUMAB 240 MG in Sodium Chloride 0.9% 100 ML IV SCH; -DURVALUMAB IV SCH; -SODIUM CHLORIDE 0.9% IV SCH
[2018-12-31] MEDS ORDERED: Sodium Chloride 0.9% 20 ML ONE (11:43)
[2018-12-31 11:45] VITALS: BP 151/80; TEMP 97.8
== END 2018-12-31 13:49 | disposition home or self-care (01) ==
LOC: ONC/OP 11:10
PROVIDERS: ATTEND Internal Medicine Hematology & Oncology
DX: Z51.12 Encounter for antineoplastic immunotherapy (principal); C34.11 Malignant neoplasm of upper lobe, right bronchus or lung; Z88.0 Allergy status to penicillin
CPT/HCPCS: 36415; 80053; 82248; 83615; 84100; 84436; 84443; 84550; 96413; J1642; J3490; J9173

== ENCOUNTER 2019-01-08 11:42 | Outpatient (CLI) | payer MEDICARE, MEDICAID ==
[2019-01-08 13:57] LABS: #Basophils 0.1 thou/uL (0.0-0.2); #Eosinphils 0.3 thou/uL (0.0-0.7); #Lymphocytes 1.8 thou/uL (1.20-3.40); #Monocytes 0.6 thou/uL (0.11-0.59); #Neutrophils 2.6 thou/uL (1.40-6.50); %Basophils 1.1 % (0.0-1.0); %Eosinophils 4.7 % (0.0-10.0); %Lymphocytes 33.5 % (21.0-51.0); %Monocytes 11.5 % (0.0-10.0); %Neutrophils 49.1 % (42.0-75.0); Hemoglobin 13.2 g/dL (12.0-16.0); Mean Corpuscular HGB CONC 32.8 g/dL (32.0-36.0); Mean Corpuscular Hemoglobin 31.8 pg (27.0-31.0); Mean Corpuscular Volume 96.8 fL (78.0-98.0); Mean Platelet Volume 9.2 fL (7.4-10.4); Platelet Count 182 thou/uL (130-400); RBC Distribution Width 13.2 % (11.5-14.5); Red Blood Cell (RBC) Count 4.16 mill/uL (4.20-5.40); White Blood Cell (WBC) Count 5.3 thou/uL (4.8-10.8)
[2019-01-08 14:25] LABS: ALT (SGPT) 20 U/L (8-55); AST (SGOT) 16 U/L (5-34); Albumin 4.3 g/dL (3.5-5.0); Alkaline Phosphatase 87 U/L (40-110); Anion Gap 11 mmol/L (10-20); BUN (Urea Nitrogen) 13 mg/dL (9.8-20.1); Bilirubin, Total 0.4 mg/dL (0.2-1.2); Calc. Creatinine Clearance 0 mL/min (70-130); Calcium 9.1 mg/dL (7.8-10.44); Carbon Dioxide 25 mmol/L (22-29); Chloride 109 mmol/L (98-107); Estimated GFR-MDRD 90; Globulin 3.3 g/dL (2.4-3.5); Glucose 95 mg/dL (70-105); Potassium 3.5 mmol/L (3.5-5.1); Protein, Total 7.6 g/dL (6.0-8.3); Sodium 141 mmol/L (136-145)
--- NOTE | 2019-01-08 16:38 | EKG ---
Test Reason : Blood Pressure : / mmHG Vent. Rate : 077 BPM Atrial Rate : 077 BPM P-R Int : 192 ms QRS Dur : 194 ms QT Int : 482 ms P-R-T Axes : 079 -81 091 degrees QTc Int : 545 ms Electronic ventricular pacemaker When compared with ECG of 22-JAN-2018 03:15, (Unconfirmed) Vent. rate has decreased BY 11 BPM Confirmed by GALINDO TYSON ([id number]) on 01/08/2019 4:37:38 PM Referred By: RADHA Confirmed By:GALINDO TYSON
== END 2019-01-08 11:43 | disposition home or self-care (01) ==
LOC: LABBT 11:42
PROVIDERS: ATTEND Specialist
DX: Z01.818 Encounter for other preprocedural examination (principal); C50.912 Malignant neoplasm of unspecified site of left female breast; Z17.0 Estrogen receptor positive status [ER+]
CPT/HCPCS: 80053; 85025; 93005; 93010

== ENCOUNTER 2019-01-11 06:38 | Day surgery (SDC) | payer MEDICARE, MEDICAID ==
--- NOTE | 2019-01-09 07:52 | HP ---
HISTORY OF PRESENT ILLNESS: Gudelia Chambers is a 58-year-old black female with comorbidities of PAD with left lower extremity stents, right AKA, left subclavian vein pacemaker, undergoing immunotherapy for right lung cancer, status post radiation therapy to her right lung field and mediastinum. She is followed by Dr. Vazquez and Dr. Cuellar. She has completed radiation therapy. She was noted on screening mammogram on 11/21/2018 to have a 10 mm left breast spiculated density 8 cm from the nipple 4 o'clock radian, left breast, lower outer quadrant. She underwent biopsy noting ER positive, WV positive, HER-2 positive, grade 1 infiltrating ductal carcinoma with DCIS component. This is nonpalpable on exam. I have discussed with Dr. Vazquez, Dr. Cuellar per telephone and Dr. Freeman who is her cancer registry coordinator. After considering the issues and options, plan at this time is for mammographically placement of a needle to localize the nonpalpable density in the left breast lower outer quadrant 4 o'clock radian, 8 cm from the nipple to radiologically determine and then lymphoscintigraphy with partial mastectomy, sentinel node biopsy under general anesthesia. She will then follow up with Dr. Cuellar and Dr. Vazquez regarding adjunctive therapy and partial radiation therapy to the left breast. She was given the option of mastectomy but preferred not to have this. She understands the risks and benefits and consents. Her mother is with her during the interview. I have discussed with Dr. Prabhakar Freeman her cardiac status. The patient had a cardiac cath in the last 2 months and has minimal disease. Her cardiac risk is acceptable and she does not need further evaluation with Dr. Freeman and this dictation will suffice for her cardiac clearance per my discussion with Dr. Freeman. Her ejection fraction is normal. PAST SURGICAL HISTORY: Right [id number] amputation for PAD; pacemaker, left subclavian, MediPort, right subclavian. PAST MEDICAL HISTORY: Radiation therapy, right chest and mediastinum. MEDICATIONS: 1. Vascepa 1 g 2 morning, 2 evening. 2. Carvedilol 12.5 mg twice a day. 3. Amlodipine 10 mg a day. 4. Colcrys 0.6 mg daily. 5. Protonix 20 mg a day. 6. Meloxicam 15 mg daily. . 7. Singulair 10 mg at bedtime. 8. Rosuvastatin 20 mg at bedtime. FAMILY HISTORY: Negative for breast cancer. 3, para 3. PAST MEDICAL HISTORY: Pacemaker, left subclavian vein. Cardiac cath in the last 2 months. No significant coronary artery disease. Does give a history of myocardial infarction in the past, asymptomatic from cardiac standpoint, left subclavian vein pacemaker. SOCIAL HISTORY: Tobacco, rarely 1 to 2 cigarettes a day. Alcohol, two of the 25-ounce cans of beer a day. She states that she is not a liquor woman. ALLERGIES: NONE. REVIEW OF SYSTEMS: Ten-point noncontributory. PHYSICAL EXAMINATION: GENERAL: Nonweightbearing obese. Right upper chest MediPort, left upper chest pacemaker. VITAL SIGNS: Blood pressure 115/62, pulse 78, temperature 99.7 degrees. LUNGS: Clear to auscultation. No wheezing. CARDIAC: Regular rate and rhythm without murmur or gallop. ABDOMEN: Obese, soft, nontender. EXTREMITIES: Right AKA. Left lower extremity unremarkable. AXILLA: Both axilla without palpable lymphadenopathy. BREASTS: Both breasts without masses. Nipple and areola of both breasts are normal and no palpable masses in the left breast with special attention to the 4 o'clock radian, 8 cm from the nipple, left breast lower outer quadrant. ASSESSMENT AND PLAN: 1. Left breast cancer, HER-2 positive, ER positive, WV positive, 10 mm mass, nonpalpable by radiology criteria. Have discussed with Dr. Cuellar, Dr. Vazquez and Dr. Freeman. We would plan partial mastectomy needle localized with lymphoscintigraphy and sentinel node biopsy as described above. She understands risks and benefits and consents. 2. Pacemaker status, normal cardiac catheterization, minimal disease 2 months ago. No cardiac contraindications to surgery and general anesthetic. 3. Tobacco use. 4. Stage III right lung cancer, status post undergoing immunotherapy and status post radiation therapy to right lung and mediastinum. Job ID: [id number]
--- NOTE | 2019-01-11 10:17 | NM ---
Radionucleotide lymphoscintigraphy left breast HISTORY: Left breast cancer. FINDINGS: After explaining the procedure and answering all questions, the anterior aspect of the left breast was cleansed. Sterile technique was used to carefully injected a total volume of 1 cc liquid containing 420 uCi technetium 99m filtered sulfur colloid in 4 equal aliquots at the 12:00, 3: 00, 6:00, and 9:00 periareolar skin. Intradermal injection. Injection sites were carefully massaged by the patient. Imaging was performed. 1 hour images show a f ocus of increased radiotracer uptake at the axillary tail of the left breast. Skin was marked and patient was sent to day surgery. Patient tolerated the procedure well and was transferred in good con dition. IMPRESSION: Technically successful lymphoscintigraphy left breast, revealing a sentinel lymph node at the axillary tail.
[2019-01-11] MEDS ORDERED: Dexamethasone 20 MG/5 ML VIAL ONE (10:57)
[2019-01-11] MEDS ORDERED: Ondansetron PF 4 MG/2 ML Vial ONE (10:57)
[2019-01-11] MEDS ORDERED: Ketorolac Tromethamine 30 MG/ML VIAL ONE (10:57)
[2019-01-11] MEDS ORDERED: Lidocaine 1% PF 5 ML VIAL ONE (10:57)
[2019-01-11] MEDS ORDERED: Glycopyrrolate 0.4 MG/ 2 ML VIAL ONE (10:57)
[2019-01-11] MEDS ORDERED: PROPOFOL 200 MG/20 ML VIAL ONE (10:57)
[2019-01-11] MEDS ORDERED: Rocuronium Bromide 10 MG/ML (10ML VIAL) ONE (10:57)
[2019-01-11] MEDS ORDERED: PHENYLEPHRINE-NS 100 MCG/ML 10 ML SYRINGE ONE (10:57)
[2019-01-11] MEDS ORDERED: Sodium Chloride 0.9% 10 ML ONE (11:24)
[2019-01-11] MEDS ORDERED: Levofloxacin 500 mg/D5W 100 ml Premix Bag ONE (12:01)
[2019-01-11] MEDS ORDERED: Lidocaine 2% Jelly 5 ML TUBE ONE (12:51)
[2019-01-11] MEDS ORDERED: Fentanyl 100 MCG/2 ML VIAL ONE ×2 (12:51→15:55)
[2019-01-11] MEDS ORDERED: Isosulfan Blue 50 MG/5 ML VIAL ONE (12:53)
[2019-01-11] MEDS ORDERED: Promethazine HCl 25 MG/ML VIAL SLOW IVP PRN (15:13)
[2019-01-11] MEDS ORDERED: Ondansetron HCl/PF 4 MG/2 ML Vial IVP PRN (15:13)
[2019-01-11] MEDS ORDERED: Promethazine HCl 25 MG/ML VIAL IM PRN (15:13)
--- NOTE | 2019-01-11 15:41 | MMO ---
Needle localization left breast mammographic guided HISTORY: Left breast cancer. FINDINGS: After explaining the procedure and answering all questions, the small mass and associated l ocalization clip at the inferior lateral aspect of the left breast was visualized. Sterile technique, buffered local anesthesia, mammographic guidance, and a lateral approach were used to care fully advance a 19-gauge [place] needle and wire immediately deep to the localization clip. Needle was adjusted so that the clip lies 2.5 cm from the needle tip. Final images were marked and sent with the patient for day surgery. Patient tolerated the procedure well and was transferred in good condition. IMPRESSION: Technically successful mammographic guided needle localization left breast mass.
--- NOTE | 2019-01-11 17:11 | OP ---
DATE OF PROCEDURE: 01/11/2019 PREOPERATIVE DIAGNOSES: Lower outer left breast cancer, 9 mm lesion, previous radiation mediastinal and right chest for lung cancer, left subclavian vein pacemaker. POSTOPERATIVE DIAGNOSES: Lower outer left breast cancer, 9 mm lesion, previous radiation mediastinal and right chest for lung cancer, left subclavian vein pacemaker. PROCEDURE PERFORMED: Left simple mastectomy, Lymphazurin blue injection and lymphoscintigraphy for sentinel node biopsy. Biopsy of deep sentinel node more than 200 Neoprobe counts. Ex Vivo 50 count of the specimen and no activity in the resection bed. Touch prep negative. ANESTHESIA: General. DRAINS: Two #19 gold DHAVAL drains. Prior to the operation, further discussion with the patient revealed that she requested mastectomy to avoid radiation. This was done after she had undergone needle localization. Options were discussed previously and she was definitely wanting a mastectomy to avoid radiation. The patient declined reconstruction. I told her we could delay surgery to consider that, but she did not want reconstruction and wants the prosthesis. DESCRIPTION OF PROCEDURE: The patient was taken to the operating room, where under general anesthesia, a magnet placed over the pacemaker. Left breast, axilla, arm, upper abdomen, and presternal area were prepared with ChloraPrep, draped in routine fashion. An incision was made for mastectomy encompassing en bloc resection. The upper areola and central skin as well as a localizing wire sternum. Incision was carried down through the skin and subcutaneous tissue, and flaps were dissected free circumferentially, superiorly, inferiorly, medially down to the pectoralis fascia and sternal periosteum. Dissection was carried in the left axilla, identifying the long thoracic nerve sentinel node was identified in the deep axilla and submitted to the pathology, and touch prep revealed a negative. Neoprobe counts as noted above. Simple mastectomy completed, resecting the breast from the chest wall, pectoralis fascia and Serena nodes from between the pectoralis major and serratus muscle. Long thoracic nerve identified, kept free of harm. As mastectomy specimen resected, axillary tail marked with a 2-0 silk suture. Good hemostasis was obtained with the plasma blade. Wound was irrigated. #2, #19-gold DHAVAL drains were placed into the mastectomy site, secured with 3-0 nylon, and subcutaneous tissue was approximated with 3-0 Monocryl, skin with micki. Sterile dressing applied. The patient tolerated the procedure well. Job ID: [id number]
== END 2019-01-11 17:50 | disposition home or self-care (01) ==
LOC: SDC 06:38
PROVIDERS: ATTEND Specialist
PROC: 0HTU0ZZ Resection of Left Breast, Open Approach (ICD-10-PCS; principal; 2019-01-11)
PROC: 07B60ZX Excision of Left Axillary Lymphatic, Open Approach, Diagnostic (ICD-10-PCS; 2019-01-11)
DX: C50.512 Malignant neoplasm of lower-outer quadrant of left female breast (principal); C34.91 Malignant neoplasm of unspecified part of right bronchus or lung; I73.9 Peripheral vascular disease, unspecified; I25.2 Old myocardial infarction; F17.210 Nicotine dependence, cigarettes, uncomplicated; Z17.0 Estrogen receptor positive status [ER+]; Z79.1 Long term (current) use of non-steroidal anti-inflammatories (NSAID); Z79.82 Long term (current) use of aspirin; Z79.899 Other long term (current) drug therapy; Z88.0 Allergy status to penicillin; Z95.0 Presence of cardiac pacemaker; Z89.611 Acquired absence of right leg above knee; Z95.820 Peripheral vascular angioplasty status with implants and grafts
CPT/HCPCS: 19281; 19303; 38525; 38900; 78195; 88307; 88309; 88333; 88334; A9541; Q9968; J0131; J1100; J1885; J1956; J2001; J2405; J2704; J3010

== ENCOUNTER 2019-01-12 00:05 | Observation (INO) | payer MEDICARE, MEDICAID ==
[2019-01-12 01:07] LABS: #Lymphocytes 1.1 thou/uL (1.20-3.40); #Monocytes 0.6 thou/uL (0.11-0.59); #Neutrophils 11.6 thou/uL (1.40-6.50); %Basophils 0.1 % (0.0-1.0); %Eosinophils 0.1 % (0.0-10.0); %Lymphocytes 8.4 % (21.0-51.0); %Monocytes 4.5 % (0.0-10.0); Hemoglobin 12.4 g/dL (12.0-16.0); Mean Corpuscular HGB CONC 33.5 g/dL (32.0-36.0); Mean Corpuscular Hemoglobin 32.2 pg (27.0-31.0); Mean Corpuscular Volume 96.1 fL (78.0-98.0); Mean Platelet Volume 8.7 fL (7.4-10.4); Platelet Count 192 thou/uL (130-400); Red Blood Cell (RBC) Count 3.84 mill/uL (4.20-5.40); White Blood Cell (WBC) Count 13.4 thou/uL (4.8-10.8)
[2019-01-12 01:26] LABS: Phosphorus 3.9 mg/dL (2.3-4.7)
[2019-01-12] MEDS ORDERED: Fentanyl 100 MCG/2 ML VIAL ONE (01:26)
[2019-01-12 01:34] LABS: ALT (SGPT) 26 U/L (8-55); AST (SGOT) 20 U/L (5-34); Albumin 4.3 g/dL (3.5-5.0); Alkaline Phosphatase 81 U/L (40-110); Anion Gap 14 mmol/L (10-20); BUN (Urea Nitrogen) 19 mg/dL (9.8-20.1); Bilirubin, Total 0.5 mg/dL (0.2-1.2); Calc. Creatinine Clearance 0 mL/min (70-130); Calcium 9.1 mg/dL (7.8-10.44); Carbon Dioxide 25 mmol/L (22-29); Chloride 105 mmol/L (98-107); Estimated GFR-MDRD 37; Globulin 2.7 g/dL (2.4-3.5); Glucose 158 mg/dL (70-105); Magnesium 1.7 mg/dL (1.6-2.6); Potassium 4.1 mmol/L (3.5-5.1); Sodium 140 mmol/L (136-145)
[2019-01-12] MEDS: Sodium Chloride 0.9% 1,000 ML IV SCH ×3 (04:30→15:09)
[2019-01-12 04:48] VITALS: BMI 36.3
[2019-01-12] MEDS ORDERED: Ondansetron ODT 4 MG TAB SL PRN (05:53)
[2019-01-12] MEDS ORDERED: Ondansetron PF 4 MG/2 ML Vial IVP PRN (05:53)
[2019-01-12] MEDS ORDERED: Acetaminophen 325 MG TAB PO PRN (05:53)
[2019-01-12 06:38] LABS: #Basophils 0.1 thou/uL (0.0-0.2); #Eosinphils 0.1 thou/uL (0.0-0.7); #Lymphocytes 1.5 thou/uL (1.20-3.40); #Monocytes 1.3 thou/uL (0.11-0.59); %Basophils 0.7 % (0.0-1.0); %Eosinophils 0.9 % (0.0-10.0); %Lymphocytes 10.6 % (21.0-51.0); %Monocytes 9.2 % (0.0-10.0); %Neutrophils 78.7 % (42.0-75.0); Mean Corpuscular HGB CONC 33.1 g/dL (32.0-36.0); Mean Corpuscular Hemoglobin 32.6 pg (27.0-31.0); Mean Corpuscular Volume 98.6 fL (78.0-98.0); Mean Platelet Volume 9.2 fL (7.4-10.4); Platelet Count 179 thou/uL (130-400); RBC Distribution Width 13.1 % (11.5-14.5); Red Blood Cell (RBC) Count 3.36 mill/uL (4.20-5.40); White Blood Cell (WBC) Count 13.9 thou/uL (4.8-10.8)
--- NOTE | 2019-01-12 07:25 | RAD ---
XR Chest 1 View Portable History: Chest pain Comparison: Radiograph April 2018 Findings: Port catheter tip is similar. New left lower hemithorax surgical micki. Mild atelectasis lung bases. No pneumothorax. Heart size mildly enlarged. Impression: Mild bibasilar atelectasis.
[2019-01-12] MEDS ORDERED: Ibuprofen 600 MG TAB PO PRN (17:00)
[2019-01-12] MEDS: traMADol HCl 50 MG TAB PO PRN (20:08)
[2019-01-12] MEDS ORDERED: Acetaminophen 500 MG TAB PO PRN (21:09)
--- NOTE | 2019-01-12 21:34 | PRG ---
DATE OF SERVICE: SUBJECTIVE: Ms. Chambers after mastectomy presented to the emergency room last night concerned with increased drainage from her drain. She also had some orthostatic changes. When they checked her hemoglobin, it was 12.4 at midnight and 11 this morning. The patient is blood pressure was in the 90s to 100. She was admitted for observation. She is now feeling much better. OBJECTIVE: VITAL SIGNS: Temperature 98.1, pulse 86, blood pressure 106/68. LUNGS: Clear to auscultation. CARDIAC: Regular rate and rhythm without murmur or gallop. ABDOMEN: Soft, nontender. Her surgical wound looks normal. DHAVAL drains 190 left and 120 right for 24 hours. ASSESSMENT AND PLAN: We will observe for another day to assure she is tolerating diet and if her hemoglobin remains stable, anticipate discharge home tomorrow. Job ID: [id number]
[2019-01-13] MEDS: traMADol HCl 50 MG TAB PO PRN ×2 (02:33→11:25)
[2019-01-13] MEDS: Ibuprofen 600 MG TAB PO PRN ×2 (02:39→11:25)
[2019-01-13 04:13] LABS: #Basophils 0.1 thou/uL (0.0-0.2); #Eosinphils 0.3 thou/uL (0.0-0.7); #Lymphocytes 2.1 thou/uL (1.20-3.40); #Neutrophils 4.6 thou/uL (1.40-6.50); %Basophils 0.8 % (0.0-1.0); %Eosinophils 3.2 % (0.0-10.0); %Lymphocytes 26.4 % (21.0-51.0); %Monocytes 12.6 % (0.0-10.0); Mean Corpuscular HGB CONC 32.7 g/dL (32.0-36.0); Mean Corpuscular Volume 97.9 fL (78.0-98.0); Mean Platelet Volume 9.4 fL (7.4-10.4); Platelet Count 171 thou/uL (130-400); RBC Distribution Width 13.2 % (11.5-14.5); Red Blood Cell (RBC) Count 3.13 mill/uL (4.20-5.40)
[2019-01-13] MEDS ORDERED: Colchicine 0.6 MG TAB PO SCH (09:00)
[2019-01-13] MEDS ORDERED: Carvedilol 6.25 MG TAB PO SCH (09:00)
[2019-01-13] MEDS ORDERED: Aspirin 81 mg Enteric Coated Tablet PO SCH (09:00)
[2019-01-13] MEDS ORDERED: Meloxicam 15 MG TAB PO SCH (09:00)
[2019-01-13] MEDS ORDERED: ICOSAPENT ETHYL PO SCH (09:00)
[2019-01-13] MEDS ORDERED: Bupropion 150 MG XL TAB PO SCH (09:00)
[2019-01-13 12:45] VITALS: BP 110/72; TEMP 97.9
--- NOTE | 2019-01-13 13:44 | PRG ---
DATE OF SERVICE: 01/13/2019 SUBJECTIVE: Ms. Chambers is doing well today. She is getting into a chair and moving about without orthostatic symptoms. Vital signs; temperature 97.9, pulse 77, blood pressure 110/72. Hemoglobin this morning is 10, white count 8. Basic metabolic profile; creatinine slightly elevated at 1.71, otherwise unremarkable. Her drains lateral 245 and anterior 150, they are more serous in nature. Her wound looks good. She has removed the dressings, and shower, washing the wound with soap and water, apply antibiotic ointment and Telfa. OBJECTIVE: LUNGS: Clear to auscultation. CARDIAC: Regular rate and rhythm without murmur or gallop. ABDOMEN: Soft, nontender. ASSESSMENT AND PLAN: The patient is doing well. We will plan to discharge home today. She will follow up in my office in about 8 days. Job ID: [id number]
[2019-01-13] MEDS ORDERED: Rosuvastatin 20 MG TAB PO SCH ×2 (21:00)
--- NOTE | 2019-01-14 11:34 | DIS ---
DATE OF ADMISSION: 01/12/2019 DATE OF DISCHARGE: 01/13/2019 DISCHARGE DIAGNOSES: Left breast cancer, pacemaker status, history of right lung cancer, status post radiation in right lung field and mediastinum. HOSPITAL COURSE: Procedure this hospitalization was mastectomy, and was discharged home, but was readmitted because of orthostatic changes and weakness. The patient was observed for 2 days. Hemoglobin dropped to 10, but remained stable. Blood pressure stabilized. When she presented, her blood pressure was in the 90s, it is 120 to 130. Her lisinopril was held. She was started back on her carvedilol and other medications. She will be discharged home on her Vascepa, carvedilol, amlodipine, Colcrys, Protonix, meloxicam, and Singulair. She will wash her wound daily with soap and water in the shower, apply antibiotic ointment and Telfa. She was instructed on DHAVAL care. She will see me in the office in about a week. Job ID: [id number]
== END 2019-01-13 16:43 | disposition home or self-care (01) ==
LOC: ERS 00:05 → SURG A 03:35
PROVIDERS: ADMIT Specialist; ATTEND Specialist
DX: C50.912 Malignant neoplasm of unspecified site of left female breast (principal); C34.91 Malignant neoplasm of unspecified part of right bronchus or lung; F17.210 Nicotine dependence, cigarettes, uncomplicated; Z79.899 Other long term (current) drug therapy; Z88.0 Allergy status to penicillin; Z89.611 Acquired absence of right leg above knee; Z95.0 Presence of cardiac pacemaker
CPT/HCPCS: 71045; 80053; 83735; 84100; 84484; 85025 ×3; 85379; 86850; 86900; 86901; 93005; 96361 ×2; 96374; 96375; 99285; G0378 ×2; 36415; J3010

== ENCOUNTER 2019-01-28 09:43 | Day surgery (SDC) | payer MEDICARE, MEDICAID ==
[2019-01-28] MEDS ORDERED: Sodium Chloride 0.9% 20 ML ONE (10:01)
[2019-01-28 10:49] VITALS: BP 131/70; TEMP 99.2
== END 2019-01-28 13:14 | disposition home or self-care (01) ==
LOC: ONC/OP 09:43
PROVIDERS: ATTEND Internal Medicine Hematology & Oncology
DX: Z51.12 Encounter for antineoplastic immunotherapy (principal); C34.11 Malignant neoplasm of upper lobe, right bronchus or lung; Z88.0 Allergy status to penicillin
CPT/HCPCS: 96413; J1642; J3490; J9173

== ENCOUNTER 2019-02-15 10:13 | Day surgery (SDC) | payer MEDICARE, MEDICAID ==
[2019-02-15 15:47] VITALS: BP 125/64; TEMP 98.7
== END 2019-02-15 15:53 | disposition home or self-care (01) ==
LOC: ONC/OP 10:13
PROVIDERS: ATTEND Internal Medicine Hematology & Oncology
DX: Z51.12 Encounter for antineoplastic immunotherapy (principal); C34.11 Malignant neoplasm of upper lobe, right bronchus or lung; Z88.0 Allergy status to penicillin
CPT/HCPCS: 96413; J3490; J9173

== ENCOUNTER 2019-03-22 08:58 | Outpatient (CLI) | payer MEDICARE, MEDICAID ==
--- NOTE | 2019-03-22 13:39 | CT ---
CT arteriogram abdomen and pelvis with IV contrast and 3-D imaging CT arteriogram bilateral lower extremity runoff with IV contrast and 3-D imaging HISTORY: Vascular disease. Abdomen and leg pain. FINDINGS: The superiormost images show significant thickening of the skin of the left breast. There i s stranding within the fat at the inferior aspect of the left breast and small sheetlike fluid collection associated with and just anterior to the upper anterior abdominal wall. Atelectasis and scarring at the lung bases. Small calcified fibroids of the uterus. Degenerative changes throughout the lumbar spine. Diverticula of the colon without adjacent inflammation. Prominent calcification throughout the arterial structures. Calcifications at each renal hilum are ar terial. Abdominal aorta and Visceral arteries are widely patent. Short segment focus of approximately 60% stenosis within the right common iliac artery. Multifocal st enosis of the right external iliac and proximal common femoral artery to the level of complete occlusion at the level of the femoral head. [place] femoral artery and bypass graft shows no inter nal flow. Mild collateralization to the level of the above the knee amputation. Calcified and noncalcified plaque within the left iliac system that is patent. Postoperative changes of the common femoral artery with aneurysmal dilatation measuring up to 1.2 cm greatest AP diameter. Unchanged in appearance from the previous exam. There is short segment occlusion of the judith gin of the femoral artery. Hemostasis clips nearby. Some flow into the deep femoral artery system. At the level of the mid femoral shaft, there is complete occlusion of the femoral artery. Reconstitut ion of the small popliteal artery just above the level of the bifurcation. Faint contrast flow within the peroneal artery to the level of the mid tibia. IMPRESSION: Severe vascular disease. Long segment occlusion of the left femoral artery with faint col lateralization and reconstitution of the left popliteal artery. Short segment fusiform dilatation of the distal left common femoral artery at site of postoperative c hanges stable. Vascular disease of the right lower extremity with [id number]-[id number] amputation. Inflamed appearance of the left breast superficial and deep tissues. Please correlate with clinical f indings of the left breast and consider diagnostic imaging evaluation. Mild fibroid involvement of the uterus. Diverticulosis.
[2019-03-22] MEDS ORDERED: Iopamidol-370 76% 500 ML 1 ML ONE (15:21)
== END 2019-03-22 08:59 | disposition home or self-care (01) ==
LOC: BICCT 08:58
PROVIDERS: ATTEND Thoracic Surgery (Cardiothoracic Vascular Surgery)
DX: I70.222 Atherosclerosis of native arteries of extremities with rest pain, left leg (principal); I74.3 Embolism and thrombosis of arteries of the lower extremities; I72.4 Aneurysm of artery of lower extremity; K57.30 Diverticulosis of large intestine without perforation or abscess without bleeding; D25.9 Leiomyoma of uterus, unspecified; Z98.890 Other specified postprocedural states
CPT/HCPCS: 75635

== ENCOUNTER 2019-03-30 19:20 | Emergency (ER) | payer MEDICARE, OTHER ==
[~2019-03-30 19:20] MED LIST changes: -DURVALUMAB 500 MG, DURVALUMAB 240 MG in Sodium Chloride 0.9% 100 ML IV SCH; +Iopamidol-370 76% 500 ML 1 ML ONE
[2019-03-30] MEDS ORDERED: Morphine 4 MG/ML VIAL ONE ×2 (20:23→23:08)
--- NOTE | 2019-03-30 20:40 | RAD ---
Radiograph left knee 4 views: HISTORY: 58-year-old female with left knee pain FINDINGS: No large joint effusion. Mild DJD at medial and patellofemoral compartments. Lateral compartment is n ormal. No fracture or dislocation. No destructive osseous lesion. IMPRESSION: Mild osteoarthrosis.
[2019-03-30 20:51] LABS: #Basophils 0.1 thou/uL (0.0-0.2); #Eosinphils 0.3 thou/uL (0.0-0.7); #Lymphocytes 2.5 thou/uL (1.20-3.40); #Neutrophils 6.4 thou/uL (1.40-6.50); %Basophils 0.6 % (0.0-1.0); %Eosinophils 3.2 % (0.0-10.0); %Lymphocytes 24.4 % (21.0-51.0); %Monocytes 9.8 % (0.0-10.0); Hemoglobin 12.8 g/dL (12.0-16.0); Mean Corpuscular HGB CONC 32.5 g/dL (32.0-36.0); Mean Corpuscular Hemoglobin 30.6 pg (27.0-31.0); Mean Corpuscular Volume 94.3 fL (78.0-98.0); Mean Platelet Volume 8.9 fL (7.4-10.4); Platelet Count 210 thou/uL (130-400); RBC Distribution Width 14.3 % (11.5-14.5); Red Blood Cell (RBC) Count 4.18 mill/uL (4.20-5.40); White Blood Cell (WBC) Count 10.3 thou/uL (4.8-10.8)
[2019-03-30 21:09] LABS: ALT (SGPT) 17 U/L (8-55); AST (SGOT) 12 U/L (5-34); Albumin 3.9 g/dL (3.5-5.0); Alkaline Phosphatase 92 U/L (40-110); Anion Gap 14 mmol/L (10-20); BUN (Urea Nitrogen) 17 mg/dL (9.8-20.1); Bilirubin, Total 0.4 mg/dL (0.2-1.2); Calc. Creatinine Clearance 0 mL/min (70-130); Calcium 9.4 mg/dL (7.8-10.44); Carbon Dioxide 26 mmol/L (22-29); Chloride 105 mmol/L (98-107); Estimated GFR-MDRD 66; Globulin 3.1 g/dL (2.4-3.5); Glucose 178 mg/dL (70-105); Potassium 4.2 mmol/L (3.5-5.1); Sodium 141 mmol/L (136-145)
--- NOTE | 2019-03-30 21:54 | ULT ---
ULTRASOUND DOPPLER DUPLEX VENOUS LEFT LOWER EXTREMITY: DATE: 03/30/2019 HISTORY: Left lower extremity pain in 58-year-old female. TECHNIQUE: Grayscale, color-flow, and spectral analysis, of major veins of left lower extremity. FINDINGS: There is demonstration of blood flow with normal compressibility, of the left common femoral, profund a femoral, greater saphenous, femoral, popliteal, and posterior tibial, veins. The rodent exterminator evaluated arteries of the distal calf and ankle. No flow is detected in the posterior tibial artery. There is low velocity, completely nonpulsatile flow in the dorsalis pedis artery. Minimal irregular pulsatility in the low flow anterior tibial artery. IMPRESSION: 1. No deep venous thrombosis of left lower extremity. 2. No flow detected in the left posterior tibial artery: Peripheral artery disease. 3. Abnormal, nonpulsatile, very low velocity flow in dorsalis pedis and anterior tibial arteries: Per ipheral artery disease.
--- NOTE | 2019-03-30 23:36 | CT ---
CT angiogram left lower extremity: DATE: 03/30/2019 Time: 10:35 PM HISTORY: 58-year-old female with peripheral artery disease presents with left lower extremity pain. TECHNIQUE: IV injection of 100 mL Isovue-370. Instead of starting at the pelvis or hip, the lower extremity was scanned from mid thigh through the foot. Coronal and sagittal 3-D MIP reconstructions. COMPARISON: CT angiogram of 03/22/2019. FINDINGS: No contrast material is visualized in the lumen of the extensively atherosclerotic calcified distal s uperficial femoral artery at Reyes's canal, and this is unchanged. There is some contrast material in a very diseased, atherosclerotic calcified popliteal artery via co llaterals, with multifocal severe popliteal artery stenosis. Small amounts of intraluminal contrast are visualized in trifurcation vessels from the popliteal tadeo ry. There is contrast in the lumen of the peroneal artery which extends into the foot. There is contrast in the lumen of distal anterior tibial artery and dorsalis pedis artery. There is no contras t identified in the posterior tibial artery except for its very proximal portion. There is atherosclerotic calcification throughout all 3 of these arteries such that it is difficult to evaluat e the degree of stenosis, but it is apparently severe. There is no significant interval change. IMPRESSION: 1. Severe atherosclerotic peripheral artery disease of left lower extremity. 2. Today's CTA only covers the mid thigh to the foot. The rest of the left thigh is not included. 3. Chronic occlusion of distal superficial femoral artery. 4. Reconstitution of severely stenotic, diseased popliteal artery via collaterals. 5. Severe atherosclerotic disease and multifocal severe stenosis of trifurcation vessels of the calf. 6. Two-vessel runoff to the left foot. The posterior tibial artery is occluded. 7. No interval change.
[2019-03-31] MEDS ORDERED: Morphine 4 MG/ML VIAL ONE (00:23)
--- NOTE | 2019-04-01 12:03 | ULT ---
ULTRASOUND DOPPLER DUPLEX VENOUS LEFT LOWER EXTREMITY: DATE: 04/01/2019 HISTORY: Severe left lower extremity pain 58-year-old female TECHNIQUE: Grayscale, color-flow, and spectral analysis, of major veins of left lower extremity. FINDINGS: There is demonstration of blood flow with normal compressibility, of the left common femoral, profund a femoral, greater saphenous, femoral, popliteal, and posterior tibial, veins. IMPRESSION: Negative. No deep venous thrombosis of left lower extremity.
== END 2019-03-31 01:31 | disposition home or self-care (01) ==
LOC: ERS 19:20
DX: I70.202 Unspecified atherosclerosis of native arteries of extremities, left leg (principal); I25.10 Atherosclerotic heart disease of native coronary artery without angina pectoris; E78.5 Hyperlipidemia, unspecified; E78.00 Pure hypercholesterolemia, unspecified; I10 Essential (primary) hypertension; Z87.891 Personal history of nicotine dependence; Z79.891 Long term (current) use of opiate analgesic; Z79.899 Other long term (current) drug therapy
CPT/HCPCS: 80053; 85025; 96374; 96376; J2270; Q9967

== ENCOUNTER 2019-04-01 10:59 | Emergency (ER) | payer MEDICARE, OTHER ==
[2019-04-01] MEDS ORDERED: Morphine 4 MG/ML VIAL ONE ×2 (11:47→13:02)
[2019-04-01 11:51] LABS: #Basophils 0.1 thou/uL (0.0-0.2); #Eosinphils 0.4 thou/uL (0.0-0.7); #Lymphocytes 1.8 thou/uL (1.20-3.40); #Monocytes 0.6 thou/uL (0.11-0.59); #Neutrophils 4.3 thou/uL (1.40-6.50); %Basophils 0.8 % (0.0-1.0); %Eosinophils 5.5 % (0.0-10.0); %Lymphocytes 24.9 % (21.0-51.0); %Monocytes 8.8 % (0.0-10.0); %Neutrophils 59.9 % (42.0-75.0); Hemoglobin 12.4 g/dL (12.0-16.0); Mean Corpuscular HGB CONC 31.7 g/dL (32.0-36.0); Mean Corpuscular Hemoglobin 29.6 pg (27.0-31.0); Mean Corpuscular Volume 93.5 fL (78.0-98.0); Mean Platelet Volume 8.9 fL (7.4-10.4); Platelet Count 186 thou/uL (130-400); RBC Distribution Width 14.2 % (11.5-14.5); Red Blood Cell (RBC) Count 4.18 mill/uL (4.20-5.40); White Blood Cell (WBC) Count 7.1 thou/uL (4.8-10.8)
[2019-04-01 12:07] LABS: ALT (SGPT) 26 U/L (8-55); AST (SGOT) 20 U/L (5-34); Alkaline Phosphatase 99 U/L (40-110); Anion Gap 14 mmol/L (10-20); BUN (Urea Nitrogen) 13 mg/dL (9.8-20.1); Bilirubin, Total 0.3 mg/dL (0.2-1.2); Calc. Creatinine Clearance 0 mL/min (70-130); Calcium 8.6 mg/dL (7.8-10.44); Carbon Dioxide 25 mmol/L (22-29); Chloride 106 mmol/L (98-107); Estimated GFR-MDRD 89; Globulin 2.7 g/dL (2.4-3.5); Glucose 120 mg/dL (70-105); Potassium 4.4 mmol/L (3.5-5.1); Protein, Total 6.7 g/dL (6.0-8.3); Sodium 141 mmol/L (136-145)
[2019-04-01] MEDS ORDERED: Ketorolac Tromethamine 30 MG/ML VIAL ONE (13:02)
== END 2019-04-01 15:32 | disposition home or self-care (01) ==
LOC: ERS 10:59
DX: M79.605 Pain in left leg (principal); I25.10 Atherosclerotic heart disease of native coronary artery without angina pectoris; E78.5 Hyperlipidemia, unspecified; I10 Essential (primary) hypertension; Z87.891 Personal history of nicotine dependence; Z79.899 Other long term (current) drug therapy; Z89.611 Acquired absence of right leg above knee
CPT/HCPCS: 36415; 80053; 83605; 85025; 86140; 96374; 96375; 96376; J1885; J2270

== ENCOUNTER 2019-04-03 11:33 | Inpatient (IN) | payer MEDICARE, MEDICAID ==
--- NOTE | 2019-04-03 12:23 | HP ---
CHIEF COMPLAINT: Left foot pain. HISTORY OF PRESENT ILLNESS: The patient is a 58-year-old woman with peripheral vascular disease, having had a right above-knee amputation for vascular disease after a failed right-sided femoral popliteal bypass and in December of 2017, having undergone left iliofemoral and profunda endarterectomy and patch angioplasty for ischemic rest pain on the left side. I saw the patient in office 6 days ago with some complaints of burning and tingling pain along the lateral aspect of her right stump, although her left foot had some dependent rubor and was little bit dusky. She said that it was not bothering her any. However, it began hurting her enough that she presented to the emergency room at [facility] on Monday and Monday of this week and then again to the [facility] yesterday evening. She described a constant ache in her left lower leg starting at about the knee and going on down into the foot. When I saw her in the emergency room on Monday, she was unable to hold still because of the intensity of the pain. Her foot was warm and pink with capillary refill. It was about 1 or 1.5 seconds at the distal foot and less than a second at the heel. She had a Doppler signal in her dorsalis pedis that was not normal, but was fairly easy to find. All-in-all, I felt that her symptoms were out of proportion to the physical findings on her vascular exam after presenting to the emergency room again yesterday, I had her come to the office today. She is only a little bit more comfortable, but her left foot now is cooler and duskier and there is a little bit of tenderness to the skin of the lower leg. 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 She has also had a breast cancer. HOME MEDICATIONS: 1. Norvasc 10 mg a day. 2. Coreg 25 mg a day. 3. Lisinopril 5 mg a day. 4. Baby aspirin a day. 5. Crestor 10 mg a day. 6. Mobic 15 mg a day. 7. Amitriptyline 20 mg at bedtime. 8. Vascepa 2 g twice a day with meals. 9. Montelukast 10 mg once a day. 10. Pantoprazole 20 mg a day. 11. Allopurinol a day. 12. Anastrozole 1 mg a day. ALLERGIES: SHE DENIES ANY MEDICAL ALLERGIES. SOCIAL HISTORY: She only apparently recently quit smoking. FAMILY HISTORY: Significant for hypertension and diabetes in her mother. REVIEW OF SYSTEMS: Negative for any chest pain. Negative for any shortness of breath. Negative for any lower extremity swelling. PHYSICAL EXAMINATION: GENERAL: She is obviously uncomfortable. VITAL SIGNS: Her heart rate is 95, blood pressure 150/97. Weight is 190 pounds. LUNGS: She has clear breath sounds. HEART: Regular rate and rhythm. ABDOMEN: Obese, soft, and nontender. EXTREMITIES: She has a palpable left femoral pulse. I am not able to palpate pulses below that level. Her left foot is a little duskier and cooler than it was on Monday of this week. DIAGNOSTIC DATA: She had an arterial Doppler of that extremity, which showed an CHICO of 0.47. Waveforms were pulsatile in the femoral and superficial femoral level began to flatten out at the popliteal level and lost most of their pulsatility at the posterior tibial and dorsalis pedis level. She has had an arteriogram in December of 2017 that showed runoff to the foot being through a diseased peroneal that was not felt to be bypassable. She had a formal CTA of aortogram and runoff in preparation for the office visit I had with her last week and had another one last night at [facility]. She had a CTA just of the left leg in the emergency room on Monday. She has modest disease in the left iliofemoral system of marginal significance. She has what appears to be a focal stenosis at the origin of the profunda and at the origin of the SFA, if not an actual short-segment occlusion of the SFA at its origin on the left. Her SFA is diffusely diseased but is patent to the mid thigh, where it occludes and then reconstitutes in super suprageniculate popliteal. While calcifications and what seemed to represent uterine leiomyomata are seen, no other lesions that would suggest pain due to a lung cancer or breast cancer metastasis are seen on any of these CT scans. IMPRESSION AND RECOMMENDATIONS: The patient's signs did not seem to be as bad as her symptoms on Monday, but today more in keeping with each other, the quality of the CTA she had last night is a little bit better than the one she had, had last week and I think it will be adequate to plan a redo profundoplasty. I am going to go ahead and admit her today for pain control with plan on doing a redo femoral endarterectomy and profundoplasty in the morning. Job ID: [id number]
[2019-04-03] MEDS ORDERED: Lactated Ringer's 1,000 ML IV SCH (12:45)
[2019-04-03] MEDS ORDERED: Morphine Sulfate 100 MG in Dextrose 5% in Water 98 ML IV SCH (12:52)
[2019-04-03 13:33] VITALS: BMI 34.7
[2019-04-03 13:55] LABS: #Eosinphils 0.3 thou/uL (0.0-0.7); #Lymphocytes 1.3 thou/uL (1.20-3.40); #Monocytes 0.7 thou/uL (0.11-0.59); #Neutrophils 3.8 thou/uL (1.40-6.50); %Basophils 0.4 % (0.0-1.0); %Eosinophils 4.8 % (0.0-10.0); %Lymphocytes 20.8 % (21.0-51.0); Hemoglobin 12.4 g/dL (12.0-16.0); Mean Corpuscular HGB CONC 32.1 g/dL (32.0-36.0); Mean Corpuscular Hemoglobin 30.3 pg (27.0-31.0); Mean Corpuscular Volume 94.2 fL (78.0-98.0); Platelet Count 188 thou/uL (130-400); RBC Distribution Width 14.2 % (11.5-14.5); Red Blood Cell (RBC) Count 4.12 mill/uL (4.20-5.40)
[2019-04-03 14:18] LABS: Anion Gap 15 mmol/L (10-20); BUN (Urea Nitrogen) 8 mg/dL (9.8-20.1); Calc. Creatinine Clearance 108 mL/min (70-130); Calcium 8.8 mg/dL (7.8-10.44); Carbon Dioxide 22 mmol/L (22-29); Chloride 104 mmol/L (98-107); Estimated GFR-MDRD Greater than 90; Glucose 164 mg/dL (70-105); Potassium 3.8 mmol/L (3.5-5.1); Sodium 137 mmol/L (136-145)
--- NOTE | 2019-04-03 16:32 | RAD ---
RADIOGRAPH CHEST 2 VIEW: DATE: 04/03/2019 TIME: 4:23 PM HISTORY: 58-year-old female for preoperative clearance COMPARISON: 01/12/2019 FINDINGS: Somewhat low image resolution because of body habitus. Small patchy infiltrate-like density at right lower lung zone represent scar. No new consolidation. Left subclavian pacemaker. Right subclavian vascular access port. Ectasia and tortuosity of thoracic aorta. No pleural effusion or pneumothorax. No pulmonary edema. No interval change. IMPRESSION: 1. No acute pulmonary findings. 2. Right-sided implantable vascular access port. 3. Pacemaker. 4. Right lower lung zone pulmonary scar.
[2019-04-03] MEDS: Icosapent Ethyl 1 GM CAPSULE PO SCH (16:58)
[2019-04-03] MEDS: Rosuvastatin 10 MG TAB PO SCH (20:53)
[2019-04-03] MEDS: Carvedilol 25 MG TAB PO SCH (20:53)
[2019-04-03] MEDS: Montelukast Sodium 10 mg Tablet PO SCH (20:53)
[2019-04-03] MEDS: Amitriptyline HCl 10 MG TAB PO SCH (20:53)
[2019-04-04] MEDS: Carvedilol 25 MG TAB PO SCH ×2 (06:04→20:22)
[2019-04-04] MEDS ORDERED: Protamine Sulfate 50 MG/5 ML VIAL ONE ×3 (06:36→11:53)
[2019-04-04] MEDS ORDERED: Heparin 5,000 UNITS/ML VIAL ONE ×2 (06:36→06:38)
[2019-04-04] MEDS ORDERED: Midazolam HCl 2 mg/2 ml Vial ONE (06:50)
[2019-04-04] MEDS ORDERED: Clindamycin/D5W 900 mg/50 ml Premix Bag ONE (06:57)
[2019-04-04] MEDS ORDERED: Fentanyl 100 MCG/2 ML VIAL ONE ×4 (07:05→13:42)
[2019-04-04] MEDS ORDERED: Calcium Chloride 1 GM/10 ML Abboject SYRINGE ONE (07:11)
[2019-04-04] MEDS ORDERED: CABG-Clindamycin/D5W 900 MG in Premix Bag 1 BAG IVPB SCH (07:15)
[2019-04-04] MEDS ORDERED: Heparin 10,000 UNITS/1 ML VIAL 30,000 UNITS in Sodium Chloride 0.9% 1,000 ML FS SCH (08:15)
[2019-04-04] MEDS ORDERED: Heparin 10,000 UNITS/1 ML VIAL ONE ×2 (08:16→11:20)
[2019-04-04] MEDS ORDERED: Meloxicam 15 MG TAB PO SCH (09:00)
[2019-04-04] MEDS: Allopurinol 100 MG TAB PO SCH (09:16)
[2019-04-04] MEDS: Icosapent Ethyl 1 GM CAPSULE PO SCH ×2 (09:16→16:22)
[2019-04-04] MEDS ORDERED: Ondansetron PF 4 MG/2 ML Vial IVP PRN (09:16)
[2019-04-04] MEDS ORDERED: Fentanyl 100 MCG/2 ML VIAL SLOW IVP PRN ×2 (09:16)
[2019-04-04] MEDS ORDERED: Promethazine HCl 25 MG/ML VIAL PR PRN (09:16)
[2019-04-04] MEDS ORDERED: HYDROcodone/Acetaminophen 5/325 mg Tablet PO PRN (09:16)
[2019-04-04] MEDS: Aspirin Chewable 81 MG TAB PO SCH (09:17)
[2019-04-04] MEDS: Anastrozole 1 MG TAB PO SCH (09:17)
[2019-04-04] MEDS: Meloxicam 15 MG TAB PO SCH (09:17)
[2019-04-04] MEDS: Amlodipine 10 MG TAB PO SCH (09:17)
[2019-04-04] MEDS: Lisinopril 5 MG TAB PO SCH (09:17)
[2019-04-04] MEDS: Enoxaparin Sodium 40 MG/0.4 ML SYRINGE SC SCH (09:17)
[2019-04-04] MEDS ORDERED: PHENYLEPHRINE-NS 100 MCG/ML 10 ML SYRINGE ONE ×2 (09:54→10:33)
[2019-04-04] MEDS ORDERED: Ondansetron PF 4 MG/2 ML Vial ONE (09:54)
[2019-04-04] MEDS ORDERED: Rocuronium Bromide 10 MG/ML (10ML VIAL) ONE (09:54)
[2019-04-04] MEDS ORDERED: PROPOFOL 200 MG/20 ML VIAL ONE (09:54)
[2019-04-04] MEDS ORDERED: Dexamethasone 20 MG/5 ML VIAL ONE (09:54)
[2019-04-04] MEDS ORDERED: Lidocaine 1% PF 5 ML VIAL ONE (09:54)
[2019-04-04] MEDS ORDERED: Glycopyrrolate 0.2 MG/ML 5 ML SYRINGE ONE (09:54)
[2019-04-04] MEDS ORDERED: Labetalol HCl 100 MG/20 ML VIAL ONE (09:54)
[2019-04-04] MEDS ORDERED: Phenylephrine HCL 10 MG/ML VIAL ONE ×2 (10:31→10:32)
[2019-04-04] MEDS ORDERED: Albuterol Sulfate 1.25 MG/3 ML NEB ONE (12:35)
--- NOTE | 2019-04-04 15:33 | OP ---
DATE OF PROCEDURE: 04/04/2019 PROCEDURE PERFORMED: Redo left femoral endarterectomy and saphenous vein patch profundoplasty. PREOPERATIVE DIAGNOSIS: Peripheral vascular disease with ischemic rest pain, left lower extremity. POSTOPERATIVE DIAGNOSIS: Peripheral vascular disease with ischemic rest pain, left lower extremity. ANESTHESIA: General endotracheal anesthesia. INDICATIONS: The patient is a 58-year-old woman with severe peripheral vascular disease. 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 In the fall of 2017, she underwent an iliofemoral endarterectomy and profundoplasty on the left side for ischemic rest pain after conventional arteriography demonstrated disease both at that level and trifurcation disease was deemed non-bypassable. She had relief of her rest pain at that time, but continued to smoke until very recently. She has redeveloped ischemic rest pain and CT angiography shows interval development of an SFA occlusion with suprageniculate reconstitution, but she has also restenosed the origin of her profunda and appears to have stenosis or short-segment occlusion of the origin of the SFA. She is now taken to the operating room for redo endarterectomy to relieve her rest pain. FINDINGS: Marked thickening of the vessel wall at the distal common femoral level with a subtotal stenosis at the origin of the profunda and a more modest stenosis at the origin of the SFA. NARRATIVE REPORT: After informed consent was obtained, the patient was taken to the operating room and placed in the supine position on the operating table. After the induction of general anesthesia, the patient's left lower extremity, right stump, and lower abdomen were prepped and draped in sterile fashion. An incision was made through the scar of the previous oblique incision in the left groin paralleling the groin crease. The incision was carried through the subcutaneous tissue. The saphenous vein and a large tributary to it were identified. The dissection was carried deep lateral to that, going down onto the palpable femoral pulse. The medial edge of the common femoral artery was more readily identifiable side, that dissection was accomplished with scissors going in between the femoral artery and femoral vein. Combination of electrocautery and sharp dissection was used to develop mirror image plane lateral to the vessel, taking it up onto the [place] femoral vessel up to and just beyond the level of the inguinal ligament. Right angle clamps were used to facilitate a circumferential dissection at that level, where the vessel palpably appeared to be reasonably good quality and had a good pulse in it. The dissection was carried down distally first onto the superficial femoral artery and then on down to the profunda. The dissection particularly along the course of the profunda was very slow and tedious with bleeding from multiple profunda vein tributaries having to be controlled with clips or sutures. When the femoral bifurcation appeared to be adequately controlled at least as was reasonably prudent with respect to adequate control without risking injury that would be difficult to repair. The patient was heparinized and proximal and distal control was established with vascular clamps. A longitudinal arteriotomy was made in the common femoral artery with an 11 blade scalpel and extended with Craig scissors, fairly brisk back bleeding from what proved to be a posterior penetrating branch at the common femoral bifurcation was controlled with the Cell Saver sucker. Right angle clamps were necessary to probe the origin of first the profunda and then the SFA to identify it. An 11 blade scalpel was used to essentially carve through the markedly thickened vessel wall until one got to good enough quality [place] vessel to allow for further extension with scissors. This was done both down the profunda and the SFA. Plaque was endarterectomized from both and trimmed off with Craig scissors. The previously exposed and harvested greater saphenous in the anterolateral tributary to it was brought to the operative field. The two branches were from each other and bivalved. The first piece of vein was used as an onlay patch on the profunda starting distally with back bleeding that was in excess of what could be controlled with Evelin catheters being controlled with the sucker. The patch on the profunda was completed up to near the bifurcation, at which point, it was feasible to remove Evelin from the distal profunda and get better control of bleeding with a vascular clamp, laterally that patch was taken up to the proximal apex of the common femoral arteriotomy and medially up to the femoral bifurcation. A second segment of vein was then used as an onlay patch from the common femoral down onto the SFA proximally sewing that vein patch to the vein used to patch the profunda. The remaining Evelin was removed and the suture line completed and the vascular controls were released and the wound inspected for hemostasis. Protamine was administered. The wound was irrigated and then packed off and after removal of the packing, it was again inspected. Hemostasis appeared to be adequate and there were good Doppler signals in the SFA and profunda beyond the patches. The wound was then closed with heavy Vicryl for the deep and superficial layers of the subcutaneous tissue and then the skin was closed with 5-0 Vicryl subcuticular suture that was then reinforced with a running 3-0 nylon skin suture. The wound was dressed. The toes were pink. The Doppler signal in the dorsalis pedis was a monophasic signal fairly similar to what it had been preoperatively. Job ID: [id number]
[2019-04-04] MEDS: HYDROcodone/Acetaminophen 5/325 mg Tablet PO PRN (20:21)
[2019-04-04] MEDS: Amitriptyline HCl 10 MG TAB PO SCH (20:22)
[2019-04-04] MEDS: Rosuvastatin 10 MG TAB PO SCH (20:22)
[2019-04-04] MEDS: Montelukast Sodium 10 mg Tablet PO SCH (20:23)
[2019-04-05] MEDS: HYDROcodone/Acetaminophen 5/325 mg Tablet PO PRN (05:13)
[2019-04-05 05:26] LABS: #Lymphocytes 1.5 thou/uL (1.20-3.40); #Monocytes 1.4 thou/uL (0.11-0.59); #Neutrophils 6.8 thou/uL (1.40-6.50); %Basophils 0.4 % (0.0-1.0); %Eosinophils 0.2 % (0.0-10.0); %Lymphocytes 15.4 % (21.0-51.0); %Neutrophils 69.9 % (42.0-75.0); Hemoglobin 11.2 g/dL (12.0-16.0); Mean Corpuscular HGB CONC 32.4 g/dL (32.0-36.0); Mean Corpuscular Hemoglobin 31.5 pg (27.0-31.0); Mean Corpuscular Volume 97.4 fL (78.0-98.0); Mean Platelet Volume 9.8 fL (7.4-10.4); Platelet Count 124 thou/uL (130-400); RBC Distribution Width 14.5 % (11.5-14.5); Red Blood Cell (RBC) Count 3.56 mill/uL (4.20-5.40); White Blood Cell (WBC) Count 9.7 thou/uL (4.8-10.8)
[2019-04-05 05:45] LABS: Anion Gap 13 mmol/L (10-20); BUN (Urea Nitrogen) 13 mg/dL (9.8-20.1); Calc. Creatinine Clearance 91 mL/min (70-130); Calcium 8.2 mg/dL (7.8-10.44); Carbon Dioxide 21 mmol/L (22-29); Chloride 107 mmol/L (98-107); Estimated GFR-MDRD 77; Glucose 160 mg/dL (70-105); Potassium 4.6 mmol/L (3.5-5.1); Sodium 136 mmol/L (136-145)
[2019-04-05] MEDS: Enoxaparin Sodium 40 MG/0.4 ML SYRINGE SC SCH (08:31)
[2019-04-05] MEDS: Amlodipine 10 MG TAB PO SCH (08:32)
[2019-04-05] MEDS: Allopurinol 100 MG TAB PO SCH (08:32)
[2019-04-05] MEDS: Meloxicam 15 MG TAB PO SCH (08:32)
[2019-04-05] MEDS: Lisinopril 5 MG TAB PO SCH (08:32)
[2019-04-05] MEDS: Aspirin Chewable 81 MG TAB PO SCH (08:32)
[2019-04-05] MEDS: Carvedilol 25 MG TAB PO SCH ×2 (08:32→20:17)
[2019-04-05] MEDS: Icosapent Ethyl 1 GM CAPSULE PO SCH ×2 (08:33→17:59)
[2019-04-05] MEDS: Anastrozole 1 MG TAB PO SCH (08:34)
--- NOTE | 2019-04-05 14:21 | PQF ---
CLINICAL DOCUMENTATION IMPROVEMENT CLARIFICATION FORM: ICD-10 Updated PLEASE DO AN ADDENDUM TO THE PROGRESS NOTE WITH ANY DOCUMENTATION UPDATES OR ADDITIONS AND CARRY THROUGH TO DC SUMMARY. THANK YOU. DATE: 04/05/19 ATTN: DR. LIMA Please exercise your independent, professional judgment in responding to the clarification form. Clinical indicators are provided on the bottom of this form for your review Please check appropriate box(s): [ ] Acute blood loss anemia [ x ] Post-op anemia related to acute blood loss [ ] Anemia: [ ] Aplastic [ ] Nutritional [ ] Drug induced (specify) ___ [ ] Hemolytic [ ] Hereditary [ ] Acquired [ ] Autoimmune [ ] Non-autoimmune [ ] Enzyme disorder [ x] Chronic Anemia: [ ] Blood loss [ ] Hemolytic [ ] Simple [ ] Due to Vitamin B12 Deficiency [ ] Other [ x] Anemia of Chronic Disease (please specify) lung cancer [ ] Other diagnosis [ ] Unable to determine In addition, please specify: Present on Admission (POA): [x ] Yes [ x ] No [ ] Unable to determine For continuity of documentation, please document condition throughout progress notes and discharge summary. Thank You. CLINICAL INDICATORS - SIGNS / SYMPTOMS / LABS / RESULTS AND LOCATION IN EMR OP NOTE 04/04: "THE DISSECTION PARTICULARLY ALONG THE COURSE OF THE PROFUNDA WAS VERY SLOW AND TEDIOUS WITH BLEEDING FROM MULTIPLE PROFUNDA VEIN TRIBUTARIES HAVING TO BE CONTROLLED WITH CLIPS OR SUTURES." HGN 04/03: 12.4 HGN 04/05: 11.2 RISKS: FEMORAL ENDARTERECTOMY 04/04 TREATMENT: VASCULAR CLAMPS (OP NOTE) PROTAMINE ADMINISTERED (OP NOTE) BLOOD TRANSFUSION SERIAL LABS (This form is maintained as a part of the permanent medical record) 2014 [employer]. All Rights Reserved CARLOS [email or web address] Office: [phone] [facility] CENTERShirley
[2019-04-05] MEDS: Amitriptyline HCl 10 MG TAB PO SCH (20:17)
[2019-04-05] MEDS: Montelukast Sodium 10 mg Tablet PO SCH (20:17)
[2019-04-05] MEDS: Rosuvastatin 10 MG TAB PO SCH (20:17)
[2019-04-06 06:22] LABS: Calcium 8.3 mg/dL (7.8-10.44); Chloride 108 mmol/L (98-107); Potassium 3.9 mmol/L (3.5-5.1); Sodium 140 mmol/L (136-145)
[2019-04-06 06:26] LABS: Band 1 % (5-11); Elliptocytes SLIGHT = 2-5 cells (100X) (0-1/hpf); Eosinophils 2 % (0-10); Hemoglobin 9.8 g/dL (12.0-16.0); Lymphocytes 26 % (21-51); MDiff Complete? YES; Mean Corpuscular HGB CONC 32.6 g/dL (32.0-36.0); Mean Corpuscular Hemoglobin 31.2 pg (27.0-31.0); Mean Corpuscular Volume 95.8 fL (78.0-98.0); Mean Platelet Volume 9.2 fL (7.4-10.4); Monocytes 14 % (0-10); Neutrophil 57 % (42-75); Platelet Count 138 thou/uL (130-400); Platelet Morphology Comment Appears Adequate; RBC Distribution Width 14.4 % (11.5-14.5); Red Blood Cell (RBC) Count 3.13 mill/uL (4.20-5.40)
[2019-04-06 06:30] LABS: BUN (Urea Nitrogen) 13 mg/dL (9.8-20.1); Calc. Creatinine Clearance 102 mL/min (70-130); Carbon Dioxide 24 mmol/L (22-29); Estimated GFR-MDRD 88; Glucose 148 mg/dL (70-105)
[2019-04-06 06:39] LABS: Anion Gap 12 mmol/L (10-20)
[2019-04-06] MEDS: Icosapent Ethyl 1 GM CAPSULE PO SCH (08:37)
[2019-04-06] MEDS: Allopurinol 100 MG TAB PO SCH (08:38)
[2019-04-06] MEDS: Meloxicam 15 MG TAB PO SCH (08:38)
[2019-04-06] MEDS: Anastrozole 1 MG TAB PO SCH (08:39)
[2019-04-06] MEDS: Aspirin Chewable 81 MG TAB PO SCH (08:40)
[2019-04-06] MEDS: Carvedilol 25 MG TAB PO SCH (08:40)
[2019-04-06] MEDS: Amlodipine 10 MG TAB PO SCH (08:40)
[2019-04-06] MEDS: Lisinopril 5 MG TAB PO SCH (08:40)
[2019-04-06] MEDS: Enoxaparin Sodium 40 MG/0.4 ML SYRINGE SC SCH (08:41)
[2019-04-06 12:17] VITALS: BP 113/69; TEMP 97.8
--- NOTE | 2019-04-07 01:45 | DIS ---
DATE OF ADMISSION: 04/03/2019 DATE OF DISCHARGE: 04/06/2019 PRINCIPAL DIAGNOSES: Peripheral vascular disease with left lower extremity ischemic rest pain. PROCEDURES PERFORMED: Redo left femoral endarterectomy and saphenous vein patch profundoplasty on 04/04/2019. HISTORY OF PRESENT ILLNESS AND HOSPITAL COURSE: The patient is a 58-year-old lung cancer patient with peripheral vascular disease. She has already had a right ixdly-new-bijp amputation and a little over a year ago, underwent a left femoral endarterectomy to relieve ischemic rest pain. She had a combination of inflow and outflow disease documented by arteriography at that time, which included trifurcation vessel disease that was deemed non-bypassable. She only recently quit smoking. She had pain worrisome for ischemic rest pain on and off for some time and I had seen her in office very recently, at which time, she said that her left leg did not bother her at all. Over the next few days, however, she presented to emergency room 3 times in the course of 4 days. I saw her on one of those occasions, at which time, her foot was warm and pink and had a Doppler signal in the dorsalis pedis, albeit diminished one. Her signs were not consistent with her symptoms at that point, but when re-evaluated in the office 2 days later, she had mottling of her foot and noninvasive evaluation demonstrated flattening of the waveforms distally more in keeping with ischemic rest pain. She was admitted from office for pain control and the next day, underwent a redo endarterectomy. Postoperatively, she had good Doppler signals in both SFA and profunda within the wound, but only a monophasic signal in her dorsalis pedis. Following that evening, she said that her foot felt much better and the following morning, she merely had a little bit of tingling in the foot. It was warm and pink and by postoperative day #2, she had largely resolved the mottling that has been there preoperatively. She is now being discharged home to resume her home medications and has been written a prescription for [place]is[place] as needed for pain. Job ID: [id number]
== END 2019-04-06 12:20 | disposition home or self-care (01) | DRG 253 ==
LOC: SJJU 11:56 → SURG A 04-04 11:34 → SJJU 04-04 11:40
PROVIDERS: ADMIT Thoracic Surgery (Cardiothoracic Vascular Surgery); ATTEND Thoracic Surgery (Cardiothoracic Vascular Surgery)
PROC: 04CL0ZZ Extirpation of Matter from Left Femoral Artery, Open Approach (ICD-10-PCS; principal; 2019-04-04)
PROC: 06UP07Z Supplement Right Saphenous Vein with Autologous Tissue Substitute, Open Approach (ICD-10-PCS; 2019-04-04)
DX: I73.89 Other specified peripheral vascular diseases (principal); D62 Acute posthemorrhagic anemia; C34.2 Malignant neoplasm of middle lobe, bronchus or lung; D63.0 Anemia in neoplastic disease; Z89.611 Acquired absence of right leg above knee; I10 Essential (primary) hypertension; Z85.3 Personal history of malignant neoplasm of breast; Z79.899 Other long term (current) drug therapy; Z87.891 Personal history of nicotine dependence
CPT/HCPCS: 36415; 36416; 36430; 71046; 80048; 80053; 83605; 85025; 86140; 86850; 86900; 86901; 88184; 88307; 93005; 93010; 96374; 96375; 96376; J1100; J1642; J1644; J1650; J1885; J2001; J2250; J2270; J2370; J2405; J2704; J2720; J3010; J3490; J7070; Q9967

== ENCOUNTER 2019-04-12 09:04 | Outpatient (CLI) | payer MEDICARE, MEDICAID ==
--- NOTE | 2019-04-12 10:00 | CT ---
CT Chest W Con HISTORY: Follow-up of lung cancer. History of chemotherapy and radiation treatment. 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 . COMPARISON: 11/14/2018 CT study of the chest. FINDINGS: Parenchymal scarring in the superior segment of the right lower lobe and right middle lobe are again demonstrated. No pulmonary nodules are identified. There is no significant mediastinal or hilar lymphadenopathy small prevascular nodes are stable. There are inflammatory changes involving the left breast. The focal presumably this is related to the sequelae of treatment. Changes were not present on the 11/14/2018 exam. Visualized liver parenchyma shows no focal findings. The right and left adrenal nodules are unchanged in appearance. Renal calcifications appear stable. IMPRESSION: 1. Chronic appearing lung changes with scarring in the right middle lobe and superior segment of the right lower lobe. 2. Development of inflammatory changes of the left breast. The patient does have a history of the lef t breast cancer. Presumably this is the sequelae of treatment. 3. Stable bilateral adrenal nodules.
[2019-04-12] MEDS ORDERED: Iopamidol 370 76% 100 ML VIAL ONE (14:25)
== END 2019-04-12 09:05 | disposition home or self-care (01) ==
LOC: CT 09:04
PROVIDERS: ATTEND Internal Medicine Hematology & Oncology
DX: C34.90 Malignant neoplasm of unspecified part of unspecified bronchus or lung (principal); J98.4 Other disorders of lung; N64.89 Other specified disorders of breast; E27.8 Other specified disorders of adrenal gland; Z85.3 Personal history of malignant neoplasm of breast; Z92.3 Personal history of irradiation
CPT/HCPCS: 71260; Q9967

== ENCOUNTER 2020-08-05 09:35 | Outpatient (CLI) | payer MEDICARE, MEDICAID | END 2020-08-05 09:36 | disposition home or self-care (01) | LOC: BICMAMMO 09:35 | PROVIDERS: ATTEND Internal Medicine Hematology & Oncology | DX: N63.12 Unspecified lump in the right breast, upper inner quadrant (principal) | CPT/HCPCS: 76642; 77065; G0279; 77066 ==

== ENCOUNTER → 2020-08-06 | Day surgery (SDC) | payer MEDICARE, MEDICAID | LOC: BICULT 12:29 | PROVIDERS: ATTEND Internal Medicine Hematology & Oncology | PROC: 0H9T3ZX Drainage of Right Breast, Percutaneous Approach, Diagnostic (ICD-10-PCS; principal; 2020-08-06) | DX: N64.1 Fat necrosis of breast (principal); Z88.0 Allergy status to penicillin | CPT/HCPCS: 19083; 88305; 88342 ==

== ENCOUNTER 2020-12-01 10:40 | Outpatient (CLI) | payer MEDICARE | END 2020-12-01 10:41 | disposition home or self-care (01) | LOC: RAD 10:40 | PROVIDERS: ATTEND Family Medicine | DX: R07.81 Pleurodynia (principal) | CPT/HCPCS: 71046 ==

== ENCOUNTER 2020-12-24 17:22 | Emergency (ER) | payer MEDICARE, OTHER ==
[2020-12-24] MEDS ORDERED: Ketorolac Tromethamine 30 MG/ML VIAL ONE (18:38)
== END 2020-12-24 19:16 | disposition home or self-care (01) ==
LOC: ERS 17:22
DX: S93.402A Sprain of unspecified ligament of left ankle, initial encounter (principal); S80.212A Abrasion, left knee, initial encounter; I25.10 Atherosclerotic heart disease of native coronary artery without angina pectoris; E78.5 Hyperlipidemia, unspecified; E78.00 Pure hypercholesterolemia, unspecified; I10 Essential (primary) hypertension; Z87.891 Personal history of nicotine dependence; Z79.01 Long term (current) use of anticoagulants; Z79.899 Other long term (current) drug therapy; X50.1XXA Overexertion from prolonged static or awkward postures, initial encounter
CPT/HCPCS: 96372; J1885

== ENCOUNTER 2021-02-08 10:46 | Outpatient (CLI) | payer MEDICARE, MEDICAID | END 2021-02-08 10:47 | disposition home or self-care (01) | LOC: BICRAD 10:46 | PROVIDERS: ATTEND Internal Medicine Critical Care Medicine | DX: R06.00 Dyspnea, unspecified (principal) | CPT/HCPCS: 71046 ==

== ENCOUNTER 2021-08-10 08:54 | Outpatient (CLI) | payer MEDICARE, MEDICAID | END 2021-08-10 08:55 | disposition home or self-care (01) | LOC: BICMAMMO 08:54 | PROVIDERS: ATTEND Internal Medicine Hematology & Oncology | DX: C34.11 Malignant neoplasm of upper lobe, right bronchus or lung (principal); J98.4 Other disorders of lung; I51.7 Cardiomegaly; I25.10 Atherosclerotic heart disease of native coronary artery without angina pectoris; E27.8 Other specified disorders of adrenal gland | CPT/HCPCS: 71250; 77065; G0279 ==

== ENCOUNTER 2021-08-30 16:15 | Observation (INO) | payer OTHER, MEDICAID ==
[2021-08-30 17:34] LABS: #Eosinphils 0.2 thou/uL (0.0-0.7); #Monocytes 0.5 thou/uL (0.11-0.59); #Neutrophils 2.2 thou/uL (1.40-6.50); %Basophils 0.8 % (0.0-1.0); %Eosinophils 3.8 % (0.0-10.0); %Lymphocytes 40.1 % (21.0-51.0); %Monocytes 10.6 % (0.0-10.0); %Neutrophils 44.8 % (42.0-75.0); Hemoglobin 12.8 g/dL (12.0-16.0); Mean Corpuscular HGB CONC 34.7 g/dL (32.0-36.0); Mean Corpuscular Hemoglobin 33.7 pg (27.0-31.0); Mean Corpuscular Volume 97.2 fL (78.0-98.0); Platelet Count 183 thou/uL (130-400); RBC Distribution Width 12.5 % (11.5-14.5); White Blood Cell (WBC) Count 4.9 thou/uL (4.8-10.8)
[2021-08-30 17:54] LABS: ALT (SGPT) 17 U/L (8-55); AST (SGOT) 14 U/L (5-34); Albumin 3.7 g/dL (3.4-4.8); Alkaline Phosphatase 111 U/L (40-110); Anion Gap 14 mmol/L (10-20); BUN (Urea Nitrogen) 14 mg/dL (9.8-20.1); Bilirubin, Total 0.6 mg/dL (0.2-1.2); CK (CPK) 81 U/L (29-168); Calc. Creatinine Clearance 0 mL/min (70-130); Calcium 9.1 mg/dL (7.8-10.44); Carbon Dioxide 22 mmol/L (23-31); Chloride 106 mmol/L (98-107); Globulin 3.3 g/dL (2.4-3.5); Glucose 185 mg/dL (80-115); Lipase 33 U/L (8-78); Potassium 3.5 mmol/L (3.5-5.1); Sodium 138 mmol/L (136-145)
[2021-08-30] MEDS ORDERED: Aspirin Chewable 81 MG TAB ONE (18:38)
[2021-08-30 20:28] VITALS: BMI 35.6
[2021-08-30] MEDS ORDERED: Acetaminophen 650 MG Suppository PR PRN (21:10)
[2021-08-30] MEDS ORDERED: Acetaminophen 325 MG TAB PO PRN (21:10)
[2021-08-30] MEDS ORDERED: Ondansetron PF 4 MG/2 ML Vial IVP PRN (21:15)
[2021-08-30] MEDS ORDERED: Ondansetron ODT 4 MG TAB SL PRN (21:15)
[2021-08-31] MEDS ORDERED: Dextrose 50% Abboject 50 ML SYRINGE SLOW IVP PRN (03:23)
[2021-08-31] MEDS ORDERED: Dextrose 5% in Water 1,000 ML IV PRN (03:23)
[2021-08-31] MEDS ORDERED: HumaLOG 300 UNITS/3 ML VIAL SC PRN ×2 (03:23)
[2021-08-31 05:19] LABS: Cardiac Risk 4.4 (Less than 4.5); Cholesterol 142 mg/dl (< 200 Desired); HDL Cholesterol 32 mg/dL (>60 Neg Risk); Triglycerides 501 mg/dL (Less than 150)
[2021-08-31 06:43] LABS: Hemoglobin A1c 9.6 % (4.0-6.0)
[2021-08-31] MEDS ORDERED: Icosapent Ethyl 1 GM CAPSULE PO SCH (08:00)
[2021-08-31] MEDS ORDERED: Amlodipine 10 MG TAB PO SCH (09:00)
[2021-08-31] MEDS ORDERED: Senokot S 8.6-50 MG TAB PO SCH (09:00)
[2021-08-31] MEDS ORDERED: Insulin Glargine 30 UNITS/0.3 ML VIAL SC SCH (09:00)
[2021-08-31] MEDS ORDERED: buPROPion 75 MG TAB PO SCH (09:00)
[2021-08-31] MEDS ORDERED: Apixaban 5 MG TAB PO SCH (09:00)
[2021-08-31] MEDS ORDERED: ADENOSINE 60 MG/20 ML VIAL ONE (10:01)
[2021-08-31 12:08] VITALS: BP 154/81; TEMP 97.6
[2021-08-31] MEDS ORDERED: Amitriptyline HCl 10 MG TAB PO SCH (21:00)
[2021-08-31] MEDS ORDERED: Gabapentin 300 MG CAP PO SCH (21:00)
[2021-08-31] MEDS ORDERED: Rosuvastatin 10 MG TAB PO SCH (21:00)
== END 2021-08-31 14:05 | disposition home or self-care (01) ==
LOC: ERS 16:15 → 2SW 18:33
PROVIDERS: ADMIT Family Medicine; ATTEND Family Medicine
DX: R07.89 Other chest pain (principal); R20.2 Paresthesia of skin; R00.1 Bradycardia, unspecified; E78.5 Hyperlipidemia, unspecified; I11.9 Hypertensive heart disease without heart failure; E11.9 Type 2 diabetes mellitus without complications; I73.9 Peripheral vascular disease, unspecified; M10.9 Gout, unspecified; N39.41 Urge incontinence; D64.9 Anemia, unspecified; I25.10 Atherosclerotic heart disease of native coronary artery without angina pectoris; F17.210 Nicotine dependence, cigarettes, uncomplicated; Z85.118 Personal history of other malignant neoplasm of bronchus and lung; Z86.718 Personal history of other venous thrombosis and embolism; Z79.4 Long term (current) use of insulin; Z79.811 Long term (current) use of aromatase inhibitors; Z79.82 Long term (current) use of aspirin; Z79.899 Other long term (current) drug therapy; Z88.0 Allergy status to penicillin; Z91.018 Allergy to other foods; Z95.0 Presence of cardiac pacemaker; Z89.611 Acquired absence of right leg above knee; Z99.3 Dependence on wheelchair; Z20.822 Contact with and (suspected) exposure to COVID-19
CPT/HCPCS: 71045; 78452; 80061; 82550; 82962 ×2; 83036; 83690; 83880; 84484 ×2; 93005; 93017; 99285; A9500; G0378 ×3; U0003; U0005; 36415; 36416; 80053; 84443; 85025; J0153; J1815

== ENCOUNTER 2021-09-23 10:15 | Outpatient (CLI) | payer MEDICARE, OTHER | END 2021-09-23 10:16 | disposition home or self-care (01) | LOC: PET 10:15 | PROVIDERS: ATTEND Internal Medicine Hematology & Oncology | DX: C34.11 Malignant neoplasm of upper lobe, right bronchus or lung (principal); R91.8 Other nonspecific abnormal finding of lung field; E27.8 Other specified disorders of adrenal gland | CPT/HCPCS: 78815; A9552 ==

== ENCOUNTER 2022-01-20 10:00 | Outpatient (CLI) | payer OTHER | END 2022-01-20 10:01 | disposition home or self-care (01) | LOC: BICMAMMO 10:00 | PROVIDERS: ATTEND Family Medicine | DX: Z13.820 Encounter for screening for osteoporosis (principal); M81.0 Age-related osteoporosis without current pathological fracture; M85.852 Other specified disorders of bone density and structure, left thigh; Z78.0 Asymptomatic menopausal state | CPT/HCPCS: 77080 ==

== ENCOUNTER 2022-07-09 00:29 | Observation (INO) | payer OTHER, MEDICAID ==
[2022-07-09 01:34] LABS: #Basophils 0.1 thou/uL (0.0-0.2); #Eosinphils 0.3 thou/uL (0.0-0.7); #Lymphocytes 2.9 thou/uL (1.20-3.40); #Monocytes 0.7 thou/uL (0.11-0.59); #Neutrophils 3.9 thou/uL (1.40-6.50); %Basophils 0.7 % (0.0-1.0); %Eosinophils 3.3 % (0.0-10.0); %Lymphocytes 36.8 % (21.0-51.0); %Monocytes 8.3 % (0.0-10.0); %Neutrophils 50.8 % (42.0-75.0); Hemoglobin 12.8 g/dL (12.0-16.0); Mean Corpuscular HGB CONC 34.3 g/dL (32.0-36.0); Mean Corpuscular Hemoglobin 32.9 pg (27.0-31.0); Platelet Count 224 10x3/uL (130-400); RBC Distribution Width 12.4 % (11.5-14.5); Red Blood Cell (RBC) Count 3.88 mill/uL (4.20-5.40); White Blood Cell (WBC) Count 7.7 10x3/uL (4.8-10.8)
[2022-07-09 01:46] LABS: INR-International Normal Ratio 1.1; PTT 34.8 sec (22.9-36.1)
[2022-07-09 01:55] LABS: ALT (SGPT) 11 U/L (8-55); AST (SGOT) 11 U/L (5-34); Albumin 4.1 g/dL (3.4-4.8); Alkaline Phosphatase 86 U/L (40-110); Anion Gap 15 mmol/L (10-20); BUN (Urea Nitrogen) 14 mg/dL (9.8-20.1); Bilirubin, Total 0.3 mg/dL (0.2-1.2); Calc. Creatinine Clearance 0 mL/min (70-130); Calcium 9.2 mg/dL (7.8-10.44); Carbon Dioxide 22 mmol/L (23-31); Chloride 105 mmol/L (98-107); Estimated GFR 74; Globulin 3.4 g/dL (2.4-3.5); Glucose 104 mg/dL (80-115); Potassium 3.8 mmol/L (3.5-5.1); Protein, Total 7.5 g/dL (5.8-8.1); Sodium 138 mmol/L (136-145)
[2022-07-09] MEDS ORDERED: Dextrose 50% Abboject 50 ML SYRINGE SLOW IVP PRN (03:04)
[2022-07-09] MEDS ORDERED: HumaLOG 300 UNITS/3 ML VIAL SC PRN ×2 (03:04)
[2022-07-09] MEDS ORDERED: Dextrose 5% in Water 1,000 ML IV PRN (03:04)
[2022-07-09] MEDS ORDERED: Lactated Ringer's 1,000 ML IV SCH (03:45)
[2022-07-09 03:49] LABS: Acetaminophen Less than 10.0 mcg/mL (10.0-30.0); Alcohol 255 mg/dL (Less than 10); CK (CPK) 77 U/L (29-168); Salicylate Less than 8.0 mg/dL (15.0-30.0)
[2022-07-09] MEDS ORDERED: Acetaminophen 325 MG TAB ONE (03:58)
[2022-07-09] MEDS: Acetaminophen 325 MG TAB PO PRN (04:02)
[2022-07-09 04:26] LABS: Amphetamine Not Detected (NotDetected); Barbiturates Screen Not Detected (NotDetected); Benzodiazepine Screen Not Detected (NotDetected); Cocaine Metabolite Screen Not Detected (NotDetected); Methadone Not Detected (NotDetected); Methamphetamine Not Detected (NotDetected); Opiate Screen Not Detected (NotDetected); Oxycodone Screen Not Detected (NotDetected); Phencyclidine (PCP) Not Detected (NotDetected); THC/Cannabinoid Screen Not Detected (NotDetected); Tricyclic Screen Detected (NotDetected)
[2022-07-09 08:44] LABS: Troponin I Less than 0.010 ng/mL (< 0.028)
[2022-07-09] MEDS ORDERED: Insulin Glargine 30 UNITS/0.3 ML VIAL SC SCH (09:00)
[2022-07-09] MEDS: Anastrozole 1 MG TAB PO SCH (11:36)
[2022-07-09] MEDS ORDERED: Iopamidol-370 76% 500 ML MDV (1 ML CHARGE) ONE (11:51)
[2022-07-09 14:41] VITALS: BMI 33.2
[2022-07-09] MEDS: Acetaminophen 500 MG TAB PO PRN ×2 (16:02→21:50)
[2022-07-09] MEDS ORDERED: Losartan 25 MG TAB PO SCH (18:00)
[2022-07-09] MEDS ORDERED: Lorazepam 2 MG/ML VIAL IM PRN (20:46)
[2022-07-09] MEDS ORDERED: Lorazepam 1 MG TAB PO PRN (20:46)
[2022-07-09] MEDS ORDERED: Rosuvastatin 20 MG TAB PO SCH (21:00)
[2022-07-09] MEDS ORDERED: Thiamine HCl 200 MG/2 ML VIAL SLOW IVP SCH (21:00)
[2022-07-09] MEDS: Apixaban 5 MG TAB PO SCH (21:51)
[2022-07-09] MEDS: Icosapent Ethyl 1 GM CAPSULE PO SCH (22:17)
[2022-07-10 05:30] LABS: #Eosinphils 0.2 thou/uL (0.0-0.7); #Lymphocytes 2.2 thou/uL (1.20-3.40); #Monocytes 0.7 thou/uL (0.11-0.59); #Neutrophils 3.4 thou/uL (1.40-6.50); %Basophils 0.4 % (0.0-1.0); %Eosinophils 2.8 % (0.0-10.0); %Lymphocytes 34.4 % (21.0-51.0); %Monocytes 10.7 % (0.0-10.0); %Neutrophils 51.7 % (42.0-75.0); Hemoglobin 13.4 g/dL (12.0-16.0); Mean Corpuscular HGB CONC 34.1 g/dL (32.0-36.0); Mean Corpuscular Hemoglobin 32.8 pg (27.0-31.0); Mean Corpuscular Volume 96.4 fl (78.0-98.0); Mean Platelet Volume 9.2 fL (7.4-10.4); Platelet Count 214 10x3/uL (130-400); RBC Distribution Width 12.5 % (11.5-14.5); Red Blood Cell (RBC) Count 4.07 mill/uL (4.20-5.40); White Blood Cell (WBC) Count 6.5 10x3/uL (4.8-10.8)
[2022-07-10 06:14] LABS: Anion Gap 14 mmol/L (10-20); BUN (Urea Nitrogen) 16 mg/dL (9.8-20.1); Calc. Creatinine Clearance 97 mL/min (70-130); Calcium 8.9 mg/dL (7.8-10.44); Carbon Dioxide 21 mmol/L (23-31); Chloride 106 mmol/L (98-107); Estimated GFR 77; Glucose 102 mg/dL (80-115); Potassium 3.7 mmol/L (3.5-5.1); Sodium 137 mmol/L (136-145)
[2022-07-10] MEDS ORDERED: Losartan 25 MG TAB PO SCH ×2 (09:00)
[2022-07-10] MEDS ORDERED: Aspirin 81 mg Enteric Coated Tablet PO SCH (09:00)
[2022-07-10] MEDS ORDERED: Folic Acid 1 MG TAB PO SCH (09:00)
[2022-07-10] MEDS ORDERED: Alendronate Sodium 70 mg Tablet PO SCH (09:00)
[2022-07-10] MEDS ORDERED: Multivit, Therapeutic 1 TAB PO SCH (09:00)
[2022-07-10] MEDS: Acetaminophen 325 MG TAB PO PRN (10:12)
[2022-07-10] MEDS: Icosapent Ethyl 1 GM CAPSULE PO SCH (10:13)
[2022-07-10] MEDS: Apixaban 5 MG TAB PO SCH (10:13)
[2022-07-10] MEDS: Anastrozole 1 MG TAB PO SCH (10:13)
[2022-07-10] MEDS ORDERED: Carvedilol 6.25 MG TAB PO SCH (10:45)
[2022-07-10 16:13] VITALS: BP 148/87; TEMP 98
[2022-07-10] MEDS ORDERED: Lorazepam 1 MG TAB PO PRN (20:46)
[2022-07-11] MEDS ORDERED: Lorazepam 1 MG TAB PO PRN (20:46)
[2022-07-12] MEDS ORDERED: Lorazepam 0.5 MG TAB PO PRN (20:46)
[2022-07-12] MEDS ORDERED: Thiamine 100 MG TAB PO SCH (21:00)
== END 2022-07-10 19:16 | disposition home or self-care (01) ==
LOC: ERS 00:29 → ERHOLD 02:31 → 2SW 14:25
PROVIDERS: ADMIT Family Medicine; ATTEND Family Medicine
DX: R55 Syncope and collapse (principal); F10.129 Alcohol abuse with intoxication, unspecified; F12.129 Cannabis abuse with intoxication, unspecified; R91.8 Other nonspecific abnormal finding of lung field; S00.83XA Contusion of other part of head, initial encounter; E11.51 Type 2 diabetes mellitus with diabetic peripheral angiopathy without gangrene; I10 Essential (primary) hypertension; E78.5 Hyperlipidemia, unspecified; R00.1 Bradycardia, unspecified; M10.9 Gout, unspecified; M81.0 Age-related osteoporosis without current pathological fracture; E55.9 Vitamin D deficiency, unspecified; F17.210 Nicotine dependence, cigarettes, uncomplicated; I25.2 Old myocardial infarction; I08.1 Rheumatic disorders of both mitral and tricuspid valves; E66.9 Obesity, unspecified; Z68.33 Body mass index [BMI] 33.0-33.9, adult; Z85.118 Personal history of other malignant neoplasm of bronchus and lung; Z85.3 Personal history of malignant neoplasm of breast; Z86.718 Personal history of other venous thrombosis and embolism; Z92.21 Personal history of antineoplastic chemotherapy; Z92.3 Personal history of irradiation; Z79.01 Long term (current) use of anticoagulants; Z79.811 Long term (current) use of aromatase inhibitors; Z79.82 Long term (current) use of aspirin; Z79.83 Long term (current) use of bisphosphonates; Z79.899 Other long term (current) drug therapy; Z88.0 Allergy status to penicillin; Z91.018 Allergy to other foods; Z95.0 Presence of cardiac pacemaker; Z89.611 Acquired absence of right leg above knee; W18.39XA Other fall on same level, initial encounter; Y90.8 Blood alcohol level of 240 mg/100 ml or more
CPT/HCPCS: 70450; 71260; 72125; 72128; 74177; 80048; 80053; 80306; 80307; 82550; 82962 ×2; 83605; 84146; 84484 ×2; 85025 ×2; 85610; 85730; 93005; 93306; 93880; 96374; 99285; G0378 ×3; 36415; 36416; J3411; J7120; Q9967

== ENCOUNTER 2022-09-12 10:18 | Observation (INO) | payer OTHER, MEDICAID ==
[2022-09-12] MEDS ORDERED: Ondansetron PF 4 MG/2 ML Vial ONE (10:47)
[2022-09-12 11:07] LABS: #Basophils 0.1 thou/uL (0.0-0.2); #Eosinphils 0.3 thou/uL (0.0-0.7); #Monocytes 0.7 thou/uL (0.11-0.59); #Neutrophils 2.6 thou/uL (1.40-6.50); %Basophils 1.1 % (0.0-1.0); %Lymphocytes 35.1 % (21.0-51.0); %Monocytes 12.1 % (0.0-10.0); %Neutrophils 46.3 % (42.0-75.0); Mean Corpuscular Hemoglobin 31.2 pg (27.0-31.0); Mean Corpuscular Volume 94.5 fl (78.0-98.0); Mean Platelet Volume 10.4 fL (7.4-10.4); Platelet Count 327 10x3/uL (130-400); RBC Distribution Width 13.2 % (11.5-14.5); Red Blood Cell (RBC) Count 3.85 mill/uL (4.20-5.40); White Blood Cell (WBC) Count 5.6 10x3/uL (4.8-10.8)
[2022-09-12] MEDS ORDERED: Magnesium 2 GM/50 ML BAG (IN WATER) ONE (11:14)
[2022-09-12 11:30] LABS: ALT (SGPT) 12 U/L (8-55); AST (SGOT) 12 U/L (5-34); Albumin 4.2 g/dL (3.4-4.8); Alkaline Phosphatase 86 U/L (40-110); Anion Gap 16 mmol/L (10-20); BUN (Urea Nitrogen) 19 mg/dL (9.8-20.1); Bilirubin, Total 0.5 mg/dL (0.2-1.2); CK (CPK) 78 U/L (29-168); Calc. Creatinine Clearance 0 mL/min (70-130); Carbon Dioxide 25 mmol/L (23-31); Chloride 101 mmol/L (98-107); Estimated GFR 51; Globulin 3.9 g/dL (2.4-3.5); Glucose 143 mg/dL (80-115); Lipase 24 U/L (8-78); Potassium 4.5 mmol/L (3.5-5.1); Protein, Total 8.1 g/dL (5.8-8.1); Sodium 137 mmol/L (136-145)
[2022-09-12 11:52] LABS: Bacteria/HPF 2+ HPF (None Seen); Bilirubin Negative (Negative); Blood, Urine Negative (Negative); CAUTI Indications for Culture Alt mental st,lethar; Clarity Clear (Clear); Glucose, Urine (Dipstick) Normal (Negative); Ketone, Urine Negative (Negative); Leukocyte 25 Leu/uL (Negative); Nitrite Negative (Negative); Protein, Urine (Dipstick) 10 mg/dL (Neg-Trace); RBC/HPF None Seen HPF (0-3); Specific Gravity, Urine 1.013 (1.002-1.036); Squamous Epithelial 0-3 HPF (0-3); Urobilinogen Normal mg/dL (Less than 2)
[2022-09-12 11:54] LABS: Urine Culture Reflex No No
[2022-09-12 12:08] LABS: Magnesium 1.9 mg/dL (1.6-2.6)
[2022-09-12 14:10] LABS: Troponin I 0.014 ng/mL (< 0.028)
[2022-09-12] MEDS ORDERED: Ondansetron ODT 4 MG TAB SL PRN (14:30)
[2022-09-12] MEDS ORDERED: Acetaminophen 325 MG TAB PO PRN (14:30)
[2022-09-12] MEDS ORDERED: Ondansetron PF 4 MG/2 ML Vial IVP PRN (14:30)
[2022-09-12 15:26] VITALS: BMI 34.9
[2022-09-12] MEDS ORDERED: Lactated Ringer's 1,000 ML IV SCH (15:30)
[2022-09-12] MEDS ORDERED: Insulin Regular 300 UNITS/3 ML VIAL SC PRN ×2 (16:12)
[2022-09-12] MEDS ORDERED: Dextrose 50% Abboject 50 ML SYRINGE SLOW IVP PRN (16:12)
[2022-09-12] MEDS ORDERED: Dextrose 5% in Water 1,000 ML IV PRN (16:12)
[2022-09-12] MEDS ORDERED: Glucagon 1 MG/ML KIT IM PRN (16:12)
[2022-09-12 17:15] LABS: Troponin I 0.029 ng/mL (< 0.028)
[2022-09-12] MEDS ORDERED: Rosuvastatin 20 MG TAB PO SCH (21:00)
[2022-09-12] MEDS ORDERED: Amitriptyline HCl 25 MG TAB PO SCH (21:00)
[2022-09-12] MEDS: Apixaban 5 MG TAB PO SCH (21:41)
[2022-09-12] MEDS: Icosapent Ethyl 1 GM CAPSULE FS SCH (21:53)
[2022-09-13 04:15] LABS: #Basophils 0.1 thou/uL (0.0-0.2); #Eosinphils 0.5 thou/uL (0.0-0.7); #Neutrophils 4.1 thou/uL (1.40-6.50); %Basophils 0.7 % (0.0-1.0); %Eosinophils 5.6 % (0.0-10.0); %Lymphocytes 29.9 % (21.0-51.0); %Monocytes 12.7 % (0.0-10.0); %Neutrophils 50.9 % (42.0-75.0); Hemoglobin 10.1 g/dL (12.0-16.0); Mean Corpuscular HGB CONC 32.3 g/dL (32.0-36.0); Mean Corpuscular Hemoglobin 31.8 pg (27.0-31.0); Mean Platelet Volume 10.5 fL (7.4-10.4); Platelet Count 277 10x3/uL (130-400); RBC Distribution Width 13.3 % (11.5-14.5); Red Blood Cell (RBC) Count 3.18 mill/uL (4.20-5.40); White Blood Cell (WBC) Count 8.1 10x3/uL (4.8-10.8)
[2022-09-13 04:38] LABS: ALT (SGPT) 10 U/L (8-55); AST (SGOT) 10 U/L (5-34); Albumin 3.7 g/dL (3.4-4.8); Alkaline Phosphatase 74 U/L (40-110); Anion Gap 14 mmol/L (10-20); BUN (Urea Nitrogen) 25 mg/dL (9.8-20.1); Bilirubin, Total 0.2 mg/dL (0.2-1.2); Calc. Creatinine Clearance 69 mL/min (70-130); Calcium 9.2 mg/dL (7.8-10.44); Carbon Dioxide 24 mmol/L (23-31); Chloride 103 mmol/L (98-107); Estimated GFR 54; Globulin 3.4 g/dL (2.4-3.5); Glucose 122 mg/dL (80-115); Protein, Total 7.1 g/dL (5.8-8.1); Sodium 137 mmol/L (136-145)
[2022-09-13 05:16] LABS: Mean Corpuscular Volume 98.4 fl (78.0-98.0)
[2022-09-13] MEDS: Apixaban 5 MG TAB PO SCH (08:04)
[2022-09-13] MEDS: Icosapent Ethyl 1 GM CAPSULE FS SCH (08:04)
[2022-09-13] MEDS ORDERED: Lisinopril/Hydrochlorothiazide 20/25 mg Tablet PO SCH ×2 (09:00)
[2022-09-13] MEDS ORDERED: Non-Formulary Item 1 EACH (Carvedilol [Coreg] 12.5 MG Tab) PO SCH (09:00)
[2022-09-13] MEDS ORDERED: Anastrozole 1 MG TAB PO SCH (09:00)
[2022-09-13] MEDS ORDERED: Carvedilol 6.25 MG TAB PO SCH (09:00)
[2022-09-13 10:22] VITALS: TEMP 98.8
[2022-09-13 12:50] VITALS: BP 114/61
[2022-09-14] MEDS ORDERED: Lisinopril 20 MG TAB PO SCH (09:00)
== END 2022-09-13 15:30 | disposition home or self-care (01) ==
LOC: ERS 10:18 → ERHOLD 13:05 → 2NO 14:16
PROVIDERS: ADMIT Family Medicine; ATTEND Family Medicine
DX: R42 Dizziness and giddiness (principal); R55 Syncope and collapse; R00.1 Bradycardia, unspecified; E86.0 Dehydration; I82.409 Acute embolism and thrombosis of unspecified deep veins of unspecified lower extremity; E11.9 Type 2 diabetes mellitus without complications; I10 Essential (primary) hypertension; I73.9 Peripheral vascular disease, unspecified; E78.5 Hyperlipidemia, unspecified; G47.00 Insomnia, unspecified; F17.200 Nicotine dependence, unspecified, uncomplicated; E66.9 Obesity, unspecified; Z68.34 Body mass index [BMI] 34.0-34.9, adult; Z88.0 Allergy status to penicillin; Z91.010 Allergy to peanuts; Z79.82 Long term (current) use of aspirin; Z79.899 Other long term (current) drug therapy; Z79.01 Long term (current) use of anticoagulants
CPT/HCPCS: 51701; 71045; 80053 ×2; 80307; 81001; 82550; 82962 ×2; 83605; 83690; 83735; 84484 ×2; 85025 ×2; 87040; 93005; 96365; 96375; 99285; G0378 ×3; 36415; 36416; J1815; J2405; J3475; J7120

== ENCOUNTER 2022-09-16 11:45 | Outpatient (CLI) | payer OTHER | END 2022-09-16 11:46 | disposition home or self-care (01) | LOC: PET 11:45 | PROVIDERS: ATTEND Internal Medicine Hematology & Oncology | DX: R91.1 Solitary pulmonary nodule (principal); C34.11 Malignant neoplasm of upper lobe, right bronchus or lung | CPT/HCPCS: 78815; A9552 ==

== ENCOUNTER 2022-11-08 23:12 | Inpatient (IN) | payer OTHER, MEDICAID ==
[2022-11-09] MEDS ORDERED: Morphine 4 MG/ML VIAL ONE ×2 (00:11→05:55)
[2022-11-09 00:18] LABS: #Basophils 0.1 thou/uL (0.0-0.2); #Eosinphils 0.3 thou/uL (0.0-0.7); #Monocytes 0.7 thou/uL (0.11-0.59); #Neutrophils 3.8 thou/uL (1.40-6.50); %Basophils 0.7 % (0.0-1.0); %Eosinophils 4.1 % (0.0-10.0); %Lymphocytes 32.9 % (21.0-51.0); %Monocytes 9.4 % (0.0-10.0); %Neutrophils 52.5 % (42.0-75.0); Hematocrit 35.4 % (36.0-47.0); Hemoglobin 11.5 g/dL (12.0-16.0); Mean Corpuscular HGB CONC 32.5 g/dL (32.0-36.0); Mean Corpuscular Hemoglobin 31.8 pg (27.0-31.0); Mean Corpuscular Volume 97.8 fl (78.0-98.0); Mean Platelet Volume 11.3 fL (7.4-10.4); Platelet Count 228 10x3/uL (130-400); Red Blood Cell (RBC) Count 3.62 mill/uL (4.20-5.40); White Blood Cell (WBC) Count 7.3 10x3/uL (4.8-10.8)
[2022-11-09 00:41] LABS: ALT (SGPT) 13 U/L (8-55); AST (SGOT) 12 U/L (5-34); Albumin 4.1 g/dL (3.4-4.8); Alkaline Phosphatase 91 U/L (40-110); Anion Gap 14 mmol/L (10-20); BUN (Urea Nitrogen) 14 mg/dL (9.8-20.1); Bilirubin, Total 0.2 mg/dL (0.2-1.2); Calc. Creatinine Clearance 0 mL/min (70-130); Calcium 8.9 mg/dL (7.8-10.44); Carbon Dioxide 19 mmol/L (23-31); Chloride 108 mmol/L (98-107); Estimated GFR 76; Globulin 3.4 g/dL (2.4-3.5); Glucose 121 mg/dL (80-115); Lipase 34 U/L (8-78); Magnesium 1.8 mg/dL (1.6-2.6); Potassium 3.7 mmol/L (3.5-5.1); Protein, Total 7.5 g/dL (5.8-8.1); Sodium 137 mmol/L (136-145)
[2022-11-09 00:44] LABS: Troponin I Less than 0.010 ng/mL (< 0.028)
[2022-11-09] MEDS ORDERED: Ondansetron ODT 4 MG TAB PO PRN (03:54)
[2022-11-09] MEDS ORDERED: Dextrose 5% in Water 1,000 ML IV PRN (04:09)
[2022-11-09] MEDS ORDERED: Dextrose 50% Abboject 50 ML SYRINGE SLOW IVP PRN (04:09)
[2022-11-09] MEDS ORDERED: HumaLOG 300 UNITS/3 ML VIAL SC PRN ×2 (04:09)
[2022-11-09] MEDS ORDERED: Glucagon 1 MG/ML KIT IM PRN (04:09)
[2022-11-09] MEDS ORDERED: Alendronate Sodium 70 mg Tablet PO SCH (04:15)
[2022-11-09] MEDS ORDERED: Morphine 4 MG/ML VIAL SLOW IVP SCH ×2 (04:15→22:15)
[2022-11-09 05:33] VITALS: BMI 34.7
[2022-11-09] MEDS: Lactated Ringer's 1,000 ML IV SCH ×3 (06:05→22:55)
[2022-11-09 08:36] LABS: Glucose 108 mg/dL (80-115)
[2022-11-09] MEDS ORDERED: Aspirin Chewable 81 MG TAB ONE (08:57)
[2022-11-09] MEDS: Carvedilol 6.25 MG TAB PO SCH ×2 (09:00→17:35)
[2022-11-09] MEDS: Anastrozole 1 MG TAB PO SCH (09:00)
[2022-11-09] MEDS: Bupropion 150 MG XL TAB PO SCH (09:01)
[2022-11-09] MEDS: Aspirin 81 mg Enteric Coated Tablet PO SCH (09:01)
[2022-11-09] MEDS: Apixaban 5 MG TAB PO SCH ×2 (09:01→21:21)
[2022-11-09] MEDS: Lisinopril 20 MG TAB PO SCH (09:02)
[2022-11-09] MEDS: Icosapent Ethyl 1 GM CAPSULE PO SCH ×2 (09:02→22:55)
[2022-11-09 12:57] LABS: Glucose 108 mg/dL (80-115)
[2022-11-09] MEDS: Amitriptyline HCl 25 MG TAB PO SCH (21:21)
[2022-11-09] MEDS: Rosuvastatin 20 MG TAB PO SCH (21:21)
[2022-11-10 05:54] LABS: #Basophils 0.1 thou/uL (0.0-0.2); #Eosinphils 0.4 thou/uL (0.0-0.7); #Monocytes 0.8 thou/uL (0.11-0.59); #Neutrophils 4.8 thou/uL (1.40-6.50); %Basophils 0.9 % (0.0-1.0); %Eosinophils 4.9 % (0.0-10.0); %Lymphocytes 26.1 % (21.0-51.0); %Monocytes 9.6 % (0.0-10.0); %Neutrophils 58.1 % (42.0-75.0); Hematocrit 37.2 % (36.0-47.0); Hemoglobin 12.1 g/dL (12.0-16.0); Mean Corpuscular HGB CONC 32.5 g/dL (32.0-36.0); Mean Corpuscular Hemoglobin 31.6 pg (27.0-31.0); Mean Corpuscular Volume 97.1 fl (78.0-98.0); Mean Platelet Volume 11.4 fL (7.4-10.4); Platelet Count 222 10x3/uL (130-400); RBC Distribution Width 13.2 % (11.5-14.5); Red Blood Cell (RBC) Count 3.83 mill/uL (4.20-5.40); White Blood Cell (WBC) Count 8.2 10x3/uL (4.8-10.8)
[2022-11-10 06:19] LABS: ALT (SGPT) 12 U/L (8-55); AST (SGOT) 10 U/L (5-34); Alkaline Phosphatase 87 U/L (40-110); Anion Gap 14 mmol/L (10-20); BUN (Urea Nitrogen) 12 mg/dL (9.8-20.1); Bilirubin, Total 0.2 mg/dL (0.2-1.2); Calc. Creatinine Clearance 96 mL/min (70-130); Calcium 9.4 mg/dL (7.8-10.44); Carbon Dioxide 23 mmol/L (23-31); Chloride 107 mmol/L (98-107); Estimated GFR 80; Globulin 3.5 g/dL (2.4-3.5); Glucose 134 mg/dL (80-115); Potassium 3.5 mmol/L (3.5-5.1); Protein, Total 7.5 g/dL (5.8-8.1); Sodium 140 mmol/L (136-145)
[2022-11-10] MEDS: Lactated Ringer's 1,000 ML IV SCH ×2 (07:59→23:06)
[2022-11-10 09:13] LABS: Glucose 126 mg/dL (80-115)
[2022-11-10] MEDS: Aspirin 81 mg Enteric Coated Tablet PO SCH (09:19)
[2022-11-10] MEDS: Carvedilol 6.25 MG TAB PO SCH ×2 (09:22→17:08)
[2022-11-10] MEDS: Lisinopril 20 MG TAB PO SCH (09:23)
[2022-11-10] MEDS: Bupropion 150 MG XL TAB PO SCH (09:23)
[2022-11-10] MEDS: Anastrozole 1 MG TAB PO SCH (09:23)
[2022-11-10] MEDS ORDERED: Lidocaine 1% PF 5 ML VIAL ONE (11:44)
[2022-11-10] MEDS ORDERED: PHENYLEPHRINE-NS 100 MCG/ML 10 ML SYRINGE ONE (11:44)
[2022-11-10] MEDS ORDERED: Ondansetron PF 4 MG/2 ML Vial ONE ×2 (11:44→11:48)
[2022-11-10] MEDS ORDERED: PROPOFOL 200 MG/20 ML VIAL ONE (11:44)
[2022-11-10] MEDS ORDERED: fentaNYL 50 mcg/mL 1 mL Vial ONE ×2 (11:48→12:21)
[2022-11-10] MEDS: Icosapent Ethyl 1 GM CAPSULE PO SCH ×2 (13:14→20:25)
[2022-11-10] MEDS: Ketorolac Tromethamine 30 MG/ML VIAL IVP SCH ×2 (17:08→23:05)
[2022-11-10 17:45] LABS: Glucose 96 mg/dL (80-115)
[2022-11-10] MEDS ORDERED: Pantoprazole 40 MG VIAL IVP SCH (19:15)
[2022-11-10] MEDS: Amitriptyline HCl 25 MG TAB PO SCH (20:25)
[2022-11-10] MEDS: Rosuvastatin 20 MG TAB PO SCH (20:25)
[2022-11-10] MEDS: Apixaban 5 MG TAB PO SCH (20:25)
[2022-11-10] MEDS: Pantoprazole 40 MG VIAL IVP SCH (20:27)
[2022-11-10] MEDS ORDERED: NIFEdipine XL 60 MG TAB PO SCH (21:00)
[2022-11-11] MEDS: Ketorolac Tromethamine 30 MG/ML VIAL IVP SCH ×2 (05:48→13:31)
[2022-11-11 05:49] LABS: #Eosinphils 0.3 thou/uL (0.0-0.7); #Monocytes 0.7 thou/uL (0.11-0.59); #Neutrophils 4.2 thou/uL (1.40-6.50); %Basophils 0.4 % (0.0-1.0); %Eosinophils 4.5 % (0.0-10.0); %Lymphocytes 25.6 % (21.0-51.0); %Monocytes 9.9 % (0.0-10.0); %Neutrophils 59.3 % (42.0-75.0); Hemoglobin 11.2 g/dL (12.0-16.0); Mean Corpuscular Hemoglobin 31.8 pg (27.0-31.0); Mean Corpuscular Volume 99.4 fl (78.0-98.0); Mean Platelet Volume 11.3 fL (7.4-10.4); Platelet Count 230 10x3/uL (130-400); RBC Distribution Width 13.2 % (11.5-14.5); Red Blood Cell (RBC) Count 3.52 mill/uL (4.20-5.40); White Blood Cell (WBC) Count 7.1 10x3/uL (4.8-10.8)
[2022-11-11 06:18] LABS: ALT (SGPT) 11 U/L (8-55); AST (SGOT) 10 U/L (5-34); Albumin 3.9 g/dL (3.4-4.8); Alkaline Phosphatase 90 U/L (40-110); Anion Gap 15 mmol/L (10-20); BUN (Urea Nitrogen) 13 mg/dL (9.8-20.1); Bilirubin, Total 0.2 mg/dL (0.2-1.2); Calc. Creatinine Clearance 82 mL/min (70-130); Calcium 9.4 mg/dL (7.8-10.44); Carbon Dioxide 22 mmol/L (23-31); Chloride 105 mmol/L (98-107); Estimated GFR 66; Globulin 3.3 g/dL (2.4-3.5); Glucose 137 mg/dL (80-115); Potassium 3.6 mmol/L (3.5-5.1); Protein, Total 7.2 g/dL (5.8-8.1); Sodium 138 mmol/L (136-145)
[2022-11-11 08:11] VITALS: BP 135/95; TEMP 97.5
[2022-11-11] MEDS ORDERED: NIFEdipine XL 60 MG TAB PO SCH (09:00)
[2022-11-11] MEDS ORDERED: Lisinopril/Hydrochlorothiazide 20/25 mg Tablet PO SCH (09:00)
[2022-11-11] MEDS: Apixaban 5 MG TAB PO SCH (09:40)
[2022-11-11] MEDS: Pantoprazole 40 MG VIAL IVP SCH (09:40)
[2022-11-11] MEDS: Lactated Ringer's 1,000 ML IV SCH (09:40)
[2022-11-11 11:07] LABS: Glucose 117 mg/dL (80-115)
[2022-11-11] MEDS: Carvedilol 6.25 MG TAB PO SCH (13:27)
[2022-11-11] MEDS: Acetaminophen 325 MG TAB PO SCH (13:29)
[2022-11-11] MEDS: Icosapent Ethyl 1 GM CAPSULE PO SCH (13:30)
[2022-11-11] MEDS: Anastrozole 1 MG TAB PO SCH (13:30)
[2022-11-11] MEDS: Aspirin 81 mg Enteric Coated Tablet PO SCH (13:30)
[2022-11-11] MEDS: Bupropion 150 MG XL TAB PO SCH (13:30)
== END 2022-11-11 16:24 | disposition home or self-care (01) | DRG 445 ==
LOC: ERS 23:12 → ERHOLD 11-09 03:44 → OBSVTOIN 11-09 03:44 → 2SW 11-09 17:19
PROVIDERS: ADMIT Emergency Medicine; ATTEND Emergency Medicine
PROC: 0WJP8ZZ Inspection of Gastrointestinal Tract, Via Natural or Artificial Opening Endoscopic Approach (ICD-10-PCS; principal; 2022-11-10)
DX: K82.4 Cholesterolosis of gallbladder (principal); C34.90 Malignant neoplasm of unspecified part of unspecified bronchus or lung; K29.70 Gastritis, unspecified, without bleeding; K83.8 Other specified diseases of biliary tract; N20.0 Calculus of kidney; R32 Unspecified urinary incontinence; D64.9 Anemia, unspecified; R00.1 Bradycardia, unspecified; F10.90 Alcohol use, unspecified, uncomplicated; I10 Essential (primary) hypertension; F12.90 Cannabis use, unspecified, uncomplicated; I25.10 Atherosclerotic heart disease of native coronary artery without angina pectoris; F17.210 Nicotine dependence, cigarettes, uncomplicated; Z88.0 Allergy status to penicillin; Z91.010 Allergy to peanuts; Z79.82 Long term (current) use of aspirin; Z79.899 Other long term (current) drug therapy; Z95.0 Presence of cardiac pacemaker; Z98.51 Tubal ligation status; Z89.611 Acquired absence of right leg above knee; Z90.12 Acquired absence of left breast and nipple; Z83.3 Family history of diabetes mellitus; Z82.49 Family history of ischemic heart disease and other diseases of the circulatory system; Z92.21 Personal history of antineoplastic chemotherapy; Z92.3 Personal history of irradiation; E11.51 Type 2 diabetes mellitus with diabetic peripheral angiopathy without gangrene
CPT/HCPCS: 36415; 36416; 71045; 74177; 76705; 78227; 80053; 83690; 83735; 83880; 84484; 85025; 88305; 88342; 93005; 96374; A9537; C9113; J1885; J2270; J2405; J2704; J3010; J7120

== ENCOUNTER 2022-11-29 11:24 | Outpatient (CLI) | payer OTHER, MEDICAID | END 2022-11-29 11:25 | disposition home or self-care (01) | LOC: RAD 11:24 | PROVIDERS: ATTEND Internal Medicine Hospice and Palliative Medicine | DX: R07.81 Pleurodynia (principal) ==

== ENCOUNTER 2022-12-19 14:22 | Emergency (ER) | payer OTHER, MEDICARE ==
[~2022-12-19 14:22] MED LIST changes: -Iopamidol-370 76% 500 ML 1 ML ONE; +Iopamidol-370 76% 500 ML MDV (1 ML CHARGE) ONE
[2022-12-19] MEDS ORDERED: Ondansetron PF 4 MG/2 ML Vial ONE (15:29)
[2022-12-19] MEDS ORDERED: Morphine 4 MG/ML VIAL ONE (15:29)
[2022-12-19 15:51] LABS: #Eosinphils 0.5 thou/uL (0.0-0.7); #Monocytes 0.9 thou/uL (0.11-0.59); #Neutrophils 5.7 thou/uL (1.40-6.50); %Basophils 0.4 % (0.0-1.0); %Eosinophils 5.4 % (0.0-10.0); %Lymphocytes 21.8 % (21.0-51.0); %Monocytes 9.4 % (0.0-10.0); %Neutrophils 62.7 % (42.0-75.0); Hematocrit 36.9 % (36.0-47.0); Hemoglobin 12.5 g/dL (12.0-16.0); Mean Corpuscular HGB CONC 33.9 g/dL (32.0-36.0); Mean Corpuscular Hemoglobin 31.9 pg (27.0-31.0); Mean Corpuscular Volume 94.1 fl (78.0-98.0); Mean Platelet Volume 10.2 fL (7.4-10.4); Platelet Count 381 10x3/uL (130-400); RBC Distribution Width 13.2 % (11.5-14.5); Red Blood Cell (RBC) Count 3.92 mill/uL (4.20-5.40); White Blood Cell (WBC) Count 9.1 10x3/uL (4.8-10.8)
[2022-12-19 16:18] LABS: ALT (SGPT) 12 U/L (8-55); AST (SGOT) 13 U/L (5-34); Albumin 4.4 g/dL (3.4-4.8); Alkaline Phosphatase 91 U/L (40-110); Anion Gap 17 mmol/L (10-20); BUN (Urea Nitrogen) 15 mg/dL (9.8-20.1); Bilirubin, Total 0.3 mg/dL (0.2-1.2); Calc. Creatinine Clearance 0 mL/min (70-130); Calcium 10.3 mg/dL (7.8-10.44); Carbon Dioxide 24 mmol/L (23-31); Chloride 102 mmol/L (98-107); Estimated GFR 80; Globulin 3.7 g/dL (2.4-3.5); Glucose 99 mg/dL (80-115); Lipase 20 U/L (8-78); Protein, Total 8.1 g/dL (5.8-8.1); Sodium 139 mmol/L (136-145)
[2022-12-19] MEDS ORDERED: Ketorolac Tromethamine 30 MG/ML VIAL ONE (16:27)
[2022-12-19 17:04] LABS: Bacteria/HPF None Seen HPF (None Seen); Bilirubin Negative (Negative); Blood, Urine Negative (Negative); CAUTI Indications for Culture Pelvic or flank pain; Clarity Clear (Clear); Glucose, Urine (Dipstick) Normal (Negative); Ketone, Urine Negative (Negative); Leukocyte Negative Leu/uL (Negative); Nitrite Negative (Negative); Protein, Urine (Dipstick) 20 mg/dL (Neg-Trace); RBC/HPF 0-3 HPF (0-3); Specific Gravity, Urine 1.029 (1.002-1.036); Squamous Epithelial 0-3 HPF (0-3); Urobilinogen Normal mg/dL (Less than 2); pH, Urine 5.5 (5.0-9.0)
[2022-12-19 17:16] LABS: Urine Culture Reflex No No
== END 2022-12-19 20:08 | disposition home or self-care (01) ==
LOC: ERS 14:22
DX: S22.070A Wedge compression fracture of T9-T10 vertebra, initial encounter for closed fracture (principal); I25.10 Atherosclerotic heart disease of native coronary artery without angina pectoris; E78.00 Pure hypercholesterolemia, unspecified; I10 Essential (primary) hypertension; F17.210 Nicotine dependence, cigarettes, uncomplicated; X50.0XXA Overexertion from strenuous movement or load, initial encounter
CPT/HCPCS: 51701; 74177; 80053; 81001; 83690; 85025; 93005; 96374; 96375; J1885; J2270; J2405; Q9967

== ENCOUNTER 2022-12-20 17:08 | Inpatient (IN) | payer OTHER ==
[2022-12-20] MEDS: Morphine 2 MG/ML VIAL SLOW IVP PRN (18:14)
[2022-12-20] MEDS ORDERED: Morphine 4 MG/ML VIAL SLOW IVP SCH (18:15)
[2022-12-20] MEDS ORDERED: Dexamethasone 4 mg/ml Vial SLOW IVP SCH (18:15)
[2022-12-20] MEDS: Ondansetron PF 4 MG/2 ML Vial IVP PRN (18:26)
[2022-12-20] MEDS ORDERED: Morphine 2 MG/ML VIAL SLOW IVP SCH (18:30)
[2022-12-20 19:29] VITALS: BMI 30.7
[2022-12-20] MEDS ORDERED: Lactated Ringer's 1,000 ML IV SCH (19:30)
[2022-12-20] MEDS ORDERED: Docusate 100 MG CAP PO PRN (20:27)
[2022-12-20] MEDS ORDERED: Acetaminophen 500 MG TAB PO PRN (20:29)
[2022-12-20] MEDS ORDERED: Alendronate Sodium 70 mg Tablet PO SCH (20:45)
[2022-12-20] MEDS: Ibuprofen 800 MG TAB PO SCH (20:49)
[2022-12-20] MEDS: HYDROcodone/Acetaminophen 10/325 mg Tablet PO SCH (20:50)
[2022-12-20] MEDS: Gabapentin 300 MG CAP PO SCH (20:51)
[2022-12-20] MEDS: Amitriptyline HCl 25 MG TAB PO SCH (20:52)
[2022-12-20] MEDS: Rosuvastatin 20 MG TAB PO SCH (20:52)
[2022-12-20] MEDS: Apixaban 5 MG TAB PO SCH (20:53)
[2022-12-20] MEDS: Carvedilol 6.25 MG TAB PO SCH (21:11)
[2022-12-20] MEDS: Methocarbamol 500 MG TAB PO PRN (21:11)
[2022-12-20] MEDS: Icosapent Ethyl 1 GM CAPSULE PO SCH (21:22)
[2022-12-20] MEDS: Dexamethasone 4 mg/ml Vial SLOW IVP SCH (23:40)
[2022-12-21] MEDS: HYDROcodone/Acetaminophen 10/325 mg Tablet PO SCH ×3 (05:10→20:24)
[2022-12-21] MEDS: Ibuprofen 800 MG TAB PO SCH (05:11)
[2022-12-21] MEDS: Dexamethasone 4 mg/ml Vial SLOW IVP SCH ×3 (05:11→17:48)
[2022-12-21 05:50] LABS: #Monocytes 0.1 thou/uL (0.11-0.59); #Neutrophils 4.4 thou/uL (1.40-6.50); %Basophils 0.2 % (0.0-1.0); %Eosinophils 0.2 % (0.0-10.0); %Lymphocytes 16.9 % (21.0-51.0); %Neutrophils 80.2 % (42.0-75.0); Hematocrit 37.2 % (36.0-47.0); Hemoglobin 12.4 g/dL (12.0-16.0); Mean Corpuscular HGB CONC 33.3 g/dL (32.0-36.0); Mean Corpuscular Hemoglobin 31.7 pg (27.0-31.0); Mean Corpuscular Volume 95.1 fl (78.0-98.0); Mean Platelet Volume 10.4 fL (7.4-10.4); Platelet Count 337 10x3/uL (130-400); RBC Distribution Width 13.4 % (11.5-14.5); Red Blood Cell (RBC) Count 3.91 mill/uL (4.20-5.40); White Blood Cell (WBC) Count 5.5 10x3/uL (4.8-10.8)
[2022-12-21 06:29] LABS: ALT (SGPT) 10 U/L (8-55); AST (SGOT) 12 U/L (5-34); Alkaline Phosphatase 80 U/L (40-110); Anion Gap 17 mmol/L (10-20); BUN (Urea Nitrogen) 38 mg/dL (9.8-20.1); Bilirubin, Total 0.2 mg/dL (0.2-1.2); Calc. Creatinine Clearance 47 mL/min (70-130); Calcium 9.3 mg/dL (7.8-10.44); Carbon Dioxide 24 mmol/L (23-31); Chloride 101 mmol/L (98-107); Estimated GFR 39; Globulin 3.1 g/dL (2.4-3.5); Glucose 136 mg/dL (80-115); Potassium 3.7 mmol/L (3.5-5.1); Protein, Total 7.1 g/dL (5.8-8.1); Sodium 138 mmol/L (136-145)
[2022-12-21] MEDS ORDERED: Dextrose 5% in Water 1,000 ML IV PRN (06:41)
[2022-12-21] MEDS ORDERED: HumaLOG 300 UNITS/3 ML VIAL SC PRN ×2 (06:41)
[2022-12-21] MEDS ORDERED: Dextrose 50% Abboject 50 ML SYRINGE SLOW IVP PRN (06:41)
[2022-12-21] MEDS ORDERED: Glucagon 1 MG/ML KIT IM PRN (06:41)
[2022-12-21] MEDS: Morphine 4 MG/ML VIAL SLOW IVP PRN ×3 (07:25→22:36)
[2022-12-21] MEDS: Methocarbamol 500 MG TAB PO PRN ×2 (07:26→16:07)
[2022-12-21] MEDS ORDERED: Lisinopril/Hydrochlorothiazide 20/25 mg Tablet PO SCH (09:00)
[2022-12-21] MEDS: Gabapentin 300 MG CAP PO SCH ×2 (09:00→20:25)
[2022-12-21] MEDS: Isosorbide Mononitrate 30 MG ER.TAB PO SCH (09:00)
[2022-12-21] MEDS: Aspirin 81 mg Enteric Coated Tablet PO SCH (09:00)
[2022-12-21] MEDS: Carvedilol 6.25 MG TAB PO SCH ×2 (09:00→20:25)
[2022-12-21] MEDS: NIFEdipine XL 60 MG ER.TAB PO SCH (09:01)
[2022-12-21] MEDS: Lisinopril 20 MG TAB PO SCH (09:01)
[2022-12-21] MEDS: BuPROPion XL 150 MG ER.TAB PO SCH (09:01)
[2022-12-21] MEDS: Icosapent Ethyl 1 GM CAPSULE PO SCH ×2 (09:01→20:31)
[2022-12-21] MEDS: Anastrozole 1 MG TAB PO SCH (09:01)
[2022-12-21] MEDS: Apixaban 5 MG TAB PO SCH ×2 (09:01→20:25)
[2022-12-21] MEDS: Senokot 8.6 MG TAB PO SCH (09:02)
[2022-12-21] MEDS: Polyethylene Glycol 3350 17 GM Packet PO SCH (09:02)
[2022-12-21] MEDS: Lactated Ringer's 1,000 ML IV SCH ×2 (09:07→17:49)
[2022-12-21 16:02] LABS: Anion Gap 17 mmol/L (10-20); BUN (Urea Nitrogen) 47 mg/dL (9.8-20.1); Calc. Creatinine Clearance 44 mL/min (70-130); Calcium 9.3 mg/dL (7.8-10.44); Carbon Dioxide 23 mmol/L (23-31); Chloride 100 mmol/L (98-107); Estimated GFR 37; Glucose 133 mg/dL (80-115); Sodium 136 mmol/L (136-145)
[2022-12-21] MEDS: Rosuvastatin 20 MG TAB PO SCH (20:24)
[2022-12-21] MEDS: Amitriptyline HCl 25 MG TAB PO SCH (20:25)
[2022-12-21 21:28] LABS: Creatinine, Urine 155.23 mg/dL (47-110)
[2022-12-21 21:30] LABS: Bacteria/HPF None Seen HPF (None Seen); Bilirubin Negative (Negative); Blood, Urine Negative (Negative); CAUTI Indications for Culture Pelvic or flank pain; Clarity Clear (Clear); Glucose, Urine (Dipstick) Normal (Negative); Ketone, Urine Negative (Negative); Leukocyte Negative Leu/uL (Negative); Nitrite Negative (Negative); Protein, Urine (Dipstick) 20 mg/dL (Neg-Trace); RBC/HPF None Seen HPF (0-3); Specific Gravity, Urine 1.025 (1.002-1.036); Squamous Epithelial 0-3 HPF (0-3); Urobilinogen Normal mg/dL (Less than 2); WBC/HPF 0-3 HPF (0-3)
[2022-12-21 21:31] LABS: Urine Culture Reflex No No
[2022-12-22] MEDS: Dexamethasone 4 mg/ml Vial SLOW IVP SCH ×5 (00:25→23:55)
[2022-12-22] MEDS: Morphine 4 MG/ML VIAL SLOW IVP PRN ×5 (00:35→22:52)
[2022-12-22] MEDS: Lactated Ringer's 1,000 ML IV SCH ×3 (03:12→21:20)
[2022-12-22] MEDS: HYDROcodone/Acetaminophen 10/325 mg Tablet PO SCH ×3 (05:17→21:04)
[2022-12-22 06:31] LABS: #Monocytes 0.4 thou/uL (0.11-0.59); #Neutrophils 8.7 thou/uL (1.40-6.50); %Monocytes 4.2 % (0.0-10.0); %Neutrophils 86.4 % (42.0-75.0); Hematocrit 34.8 % (36.0-47.0); Hemoglobin 11.3 g/dL (12.0-16.0); Mean Corpuscular HGB CONC 32.5 g/dL (32.0-36.0); Mean Corpuscular Hemoglobin 31.6 pg (27.0-31.0); Mean Corpuscular Volume 97.2 fl (78.0-98.0); Mean Platelet Volume 10.2 fL (7.4-10.4); Platelet Count 318 10x3/uL (130-400); RBC Distribution Width 13.4 % (11.5-14.5); Red Blood Cell (RBC) Count 3.58 mill/uL (4.20-5.40)
[2022-12-22 07:00] LABS: ALT (SGPT) 9 U/L (8-55); AST (SGOT) 11 U/L (5-34); Albumin 3.9 g/dL (3.4-4.8); Alkaline Phosphatase 74 U/L (40-110); Anion Gap 15 mmol/L (10-20); BUN (Urea Nitrogen) 51 mg/dL (9.8-20.1); Bilirubin, Total 0.2 mg/dL (0.2-1.2); Calc. Creatinine Clearance 55 mL/min (70-130); Calcium 8.8 mg/dL (7.8-10.44); Carbon Dioxide 24 mmol/L (23-31); Chloride 100 mmol/L (98-107); Estimated GFR 48; Globulin 2.8 g/dL (2.4-3.5); Glucose 135 mg/dL (80-115); Potassium 4.4 mmol/L (3.5-5.1); Protein, Total 6.7 g/dL (5.8-8.1); Sodium 135 mmol/L (136-145)
[2022-12-22] MEDS ORDERED: Iopamidol-370 76% 500 ML MDV (1 ML CHARGE) ONE (09:17)
[2022-12-22] MEDS: BuPROPion XL 150 MG ER.TAB PO SCH (09:28)
[2022-12-22] MEDS: NIFEdipine XL 60 MG ER.TAB PO SCH (09:28)
[2022-12-22] MEDS: Senokot 8.6 MG TAB PO SCH (09:28)
[2022-12-22] MEDS: Polyethylene Glycol 3350 17 GM Packet PO SCH (09:28)
[2022-12-22] MEDS: Anastrozole 1 MG TAB PO SCH (09:29)
[2022-12-22] MEDS: Apixaban 5 MG TAB PO SCH ×3 (09:29→21:13)
[2022-12-22] MEDS: Carvedilol 6.25 MG TAB PO SCH ×2 (09:29→21:04)
[2022-12-22] MEDS: Isosorbide Mononitrate 30 MG ER.TAB PO SCH (09:29)
[2022-12-22] MEDS: Lisinopril 20 MG TAB PO SCH (09:29)
[2022-12-22] MEDS: Aspirin 81 mg Enteric Coated Tablet PO SCH (09:29)
[2022-12-22] MEDS: Gabapentin 300 MG CAP PO SCH ×2 (09:29→21:03)
[2022-12-22] MEDS: Ondansetron PF 4 MG/2 ML Vial IVP PRN (09:34)
[2022-12-22] MEDS: Methocarbamol 500 MG TAB PO PRN ×2 (09:35→15:58)
[2022-12-22] MEDS: Icosapent Ethyl 1 GM CAPSULE PO SCH ×2 (12:07→21:05)
[2022-12-22] MEDS ORDERED: Ipratropium/Albuterol 3 ML NEB NEB PRN (16:05)
[2022-12-22] MEDS ORDERED: Bisacodyl 5 MG TAB PO PRN (16:25)
[2022-12-22] MEDS ORDERED: Bisacodyl 5 MG TAB PO SCH (16:45)
[2022-12-22] MEDS: Amitriptyline HCl 25 MG TAB PO SCH (21:04)
[2022-12-22] MEDS: Rosuvastatin 20 MG TAB PO SCH (21:04)
[2022-12-22] MEDS: Senokot S 8.6-50 MG TAB PO SCH (21:04)
[2022-12-22] MEDS: Ondansetron ODT 4 MG TAB PO PRN (21:26)
[2022-12-22] MEDS: Milk Of Magnesia 30 ML UDCUP PO PRN (23:59)
[2022-12-23 05:19] LABS: #Monocytes 0.3 thou/uL (0.11-0.59); #Neutrophils 8.1 thou/uL (1.40-6.50); %Lymphocytes 8.1 % (21.0-51.0); %Monocytes 3.2 % (0.0-10.0); %Neutrophils 88.4 % (42.0-75.0); Hematocrit 32.7 % (36.0-47.0); Hemoglobin 10.6 g/dL (12.0-16.0); Mean Corpuscular HGB CONC 32.4 g/dL (32.0-36.0); Mean Corpuscular Hemoglobin 31.5 pg (27.0-31.0); Mean Corpuscular Volume 97.3 fl (78.0-98.0); Mean Platelet Volume 10.5 fL (7.4-10.4); Platelet Count 278 10x3/uL (130-400); RBC Distribution Width 13.4 % (11.5-14.5); Red Blood Cell (RBC) Count 3.36 mill/uL (4.20-5.40); White Blood Cell (WBC) Count 9.2 10x3/uL (4.8-10.8)
[2022-12-23] MEDS: HYDROcodone/Acetaminophen 10/325 mg Tablet PO SCH ×4 (05:37→21:15)
[2022-12-23] MEDS: Dexamethasone 4 mg/ml Vial SLOW IVP SCH ×5 (05:37→23:53)
[2022-12-23 05:50] LABS: ALT (SGPT) 10 U/L (8-55); AST (SGOT) 9 U/L (5-34); Albumin 3.7 g/dL (3.4-4.8); Alkaline Phosphatase 63 U/L (40-110); Anion Gap 11 mmol/L (10-20); BUN (Urea Nitrogen) 30 mg/dL (9.8-20.1); Bilirubin, Total 0.2 mg/dL (0.2-1.2); Calc. Creatinine Clearance 94 mL/min (70-130); Calcium 8.9 mg/dL (7.8-10.44); Carbon Dioxide 27 mmol/L (23-31); Chloride 102 mmol/L (98-107); Estimated GFR 91; Globulin 2.6 g/dL (2.4-3.5); Glucose 138 mg/dL (80-115); Potassium 4.5 mmol/L (3.5-5.1); Protein, Total 6.3 g/dL (5.8-8.1); Sodium 135 mmol/L (136-145)
[2022-12-23] MEDS: Lactated Ringer's 1,000 ML IV SCH ×2 (07:52→09:45)
[2022-12-23] MEDS: Isosorbide Mononitrate 30 MG ER.TAB PO SCH (09:32)
[2022-12-23] MEDS: BuPROPion XL 150 MG ER.TAB PO SCH (09:32)
[2022-12-23] MEDS: Morphine 4 MG/ML VIAL SLOW IVP PRN ×2 (09:33→16:39)
[2022-12-23] MEDS: Gabapentin 300 MG CAP PO SCH ×2 (09:33→21:15)
[2022-12-23] MEDS: NIFEdipine XL 60 MG ER.TAB PO SCH (10:35)
[2022-12-23] MEDS: Lisinopril 20 MG TAB PO SCH (10:35)
[2022-12-23] MEDS: Icosapent Ethyl 1 GM CAPSULE PO SCH ×2 (10:35→21:16)
[2022-12-23] MEDS: Anastrozole 1 MG TAB PO SCH (10:35)
[2022-12-23] MEDS: Carvedilol 6.25 MG TAB PO SCH ×2 (10:35→21:14)
[2022-12-23] MEDS: Senokot S 8.6-50 MG TAB PO SCH ×2 (10:36→21:15)
[2022-12-23] MEDS: Polyethylene Glycol 3350 17 GM Packet PO SCH (10:36)
[2022-12-23] MEDS ORDERED: Vasopressin 20 UNITS/ML VIAL ONE (11:00)
[2022-12-23] MEDS ORDERED: fentaNYL 50 mcg/mL 1 mL Vial ONE ×5 (11:10→13:02)
[2022-12-23] MEDS ORDERED: PROPOFOL 200 MG/20 ML VIAL ONE (11:15)
[2022-12-23] MEDS ORDERED: Promethazine HCl 25 MG/ML VIAL IM PRN (12:31)
[2022-12-23] MEDS ORDERED: PACU-Morphine 4MG/ML VIAL SLOW IVP PRN (12:31)
[2022-12-23] MEDS ORDERED: Ondansetron HCl/PF 4 MG/2 ML Vial IVP PRN (12:31)
[2022-12-23] MEDS ORDERED: KETAMINE 100 MG/ML (5ML VIAL) ONE (12:54)
[2022-12-23] MEDS ORDERED: Senokot S 8.6-50 MG TAB PO SCH (15:00)
[2022-12-23] MEDS ORDERED: Bisacodyl 10 MG SUPP PR SCH (15:00)
[2022-12-23] MEDS: Amitriptyline HCl 25 MG TAB PO SCH (21:14)
[2022-12-23] MEDS: Rosuvastatin 20 MG TAB PO SCH (21:14)
[2022-12-23 22:42] LABS: Troponin I Less than 0.010 ng/mL (< 0.028)
[2022-12-24] MEDS: Morphine 4 MG/ML VIAL SLOW IVP PRN ×6 (01:56→18:34)
[2022-12-24] MEDS: Lactated Ringer's 1,000 ML IV SCH ×3 (01:57→22:42)
[2022-12-24 02:19] LABS: Troponin I Less than 0.010 ng/mL (< 0.028)
[2022-12-24] MEDS: Methocarbamol 500 MG TAB PO PRN (02:42)
[2022-12-24] MEDS: Ondansetron ODT 4 MG TAB PO PRN (02:42)
[2022-12-24] MEDS ORDERED: Lisinopril 10 MG TAB PO SCH (04:15)
[2022-12-24] MEDS: HYDROcodone/Acetaminophen 10/325 mg Tablet PO SCH ×3 (04:32→20:55)
[2022-12-24 05:07] LABS: #Monocytes 0.5 thou/uL (0.11-0.59); #Neutrophils 9.7 thou/uL (1.40-6.50); %Basophils 0.1 % (0.0-1.0); %Lymphocytes 7.3 % (21.0-51.0); %Monocytes 4.1 % (0.0-10.0); %Neutrophils 87.4 % (42.0-75.0); Hematocrit 34.5 % (36.0-47.0); Hemoglobin 11.2 g/dL (12.0-16.0); Mean Corpuscular HGB CONC 32.5 g/dL (32.0-36.0); Mean Corpuscular Hemoglobin 31.7 pg (27.0-31.0); Mean Corpuscular Volume 97.7 fl (78.0-98.0); Mean Platelet Volume 10.6 fL (7.4-10.4); Platelet Count 278 10x3/uL (130-400); RBC Distribution Width 13.4 % (11.5-14.5); Red Blood Cell (RBC) Count 3.53 mill/uL (4.20-5.40); White Blood Cell (WBC) Count 11.1 10x3/uL (4.8-10.8)
[2022-12-24 05:36] LABS: ALT (SGPT) 10 U/L (8-55); AST (SGOT) 10 U/L (5-34); Albumin 3.9 g/dL (3.4-4.8); Alkaline Phosphatase 65 U/L (40-110); Anion Gap 11 mmol/L (10-20); BUN (Urea Nitrogen) 20 mg/dL (9.8-20.1); Bilirubin, Total 0.2 mg/dL (0.2-1.2); Calc. Creatinine Clearance 94 mL/min (70-130); Calcium 9.1 mg/dL (7.8-10.44); Carbon Dioxide 29 mmol/L (23-31); Chloride 99 mmol/L (98-107); Estimated GFR 91; Globulin 2.6 g/dL (2.4-3.5); Glucose 153 mg/dL (80-115); Potassium 4.3 mmol/L (3.5-5.1); Protein, Total 6.5 g/dL (5.8-8.1); Sodium 135 mmol/L (136-145)
[2022-12-24] MEDS: Dexamethasone 4 mg/ml Vial SLOW IVP SCH ×4 (05:53→23:42)
[2022-12-24] MEDS: Carvedilol 6.25 MG TAB PO SCH ×2 (10:09→20:54)
[2022-12-24] MEDS: NIFEdipine XL 60 MG ER.TAB PO SCH (10:09)
[2022-12-24] MEDS: Polyethylene Glycol 3350 17 GM Packet PO SCH (10:09)
[2022-12-24] MEDS: Isosorbide Mononitrate 30 MG ER.TAB PO SCH (10:09)
[2022-12-24] MEDS: BuPROPion XL 150 MG ER.TAB PO SCH (10:10)
[2022-12-24] MEDS: Anastrozole 1 MG TAB PO SCH (10:10)
[2022-12-24] MEDS: Gabapentin 300 MG CAP PO SCH ×2 (10:10→20:52)
[2022-12-24] MEDS: Lisinopril 20 MG TAB PO SCH (10:10)
[2022-12-24] MEDS: Senokot S 8.6-50 MG TAB PO SCH ×2 (10:10→20:53)
[2022-12-24] MEDS: Icosapent Ethyl 1 GM CAPSULE PO SCH ×2 (10:11→20:51)
[2022-12-24] MEDS ORDERED: Methylnaltrexone 12 MG/0.6 ML VIAL SC PRN (10:21)
[2022-12-24] MEDS ORDERED: Methylnaltrexone 12 MG/0.6 ML VIAL SC ONE (10:21)
[2022-12-24] MEDS ORDERED: Naloxegol 12.5 MG TAB PO SCH (10:45)
[2022-12-24] MEDS ORDERED: hydrALAZINE 20 MG/ML VIAL SLOW IVP PRN (10:52)
[2022-12-24] MEDS: hydrOXYzine 10 MG TAB PO SCH ×2 (15:32→20:55)
[2022-12-24] MEDS: Rosuvastatin 20 MG TAB PO SCH (20:55)
[2022-12-24] MEDS: Amitriptyline HCl 25 MG TAB PO SCH (20:55)
[2022-12-24] MEDS: Milk Of Magnesia 30 ML UDCUP PO PRN (21:05)
[2022-12-24] MEDS: Morphine 2 MG/ML VIAL SLOW IVP PRN (23:42)
[2022-12-25] MEDS: Morphine 4 MG/ML VIAL SLOW IVP PRN ×6 (01:45→17:16)
[2022-12-25] MEDS: HYDROcodone/Acetaminophen 10/325 mg Tablet PO SCH ×3 (03:52→21:00)
[2022-12-25] MEDS: Dexamethasone 4 mg/ml Vial SLOW IVP SCH ×4 (05:19→23:55)
[2022-12-25 05:40] LABS: #Monocytes 0.7 thou/uL (0.11-0.59); #Neutrophils 10.3 thou/uL (1.40-6.50); %Basophils 0.1 % (0.0-1.0); %Lymphocytes 7.7 % (21.0-51.0); %Monocytes 5.4 % (0.0-10.0); %Neutrophils 86.1 % (42.0-75.0); Hematocrit 34.7 % (36.0-47.0); Hemoglobin 11.2 g/dL (12.0-16.0); Mean Corpuscular HGB CONC 32.3 g/dL (32.0-36.0); Mean Corpuscular Hemoglobin 31.4 pg (27.0-31.0); Mean Corpuscular Volume 97.2 fl (78.0-98.0); Mean Platelet Volume 10.5 fL (7.4-10.4); Platelet Count 282 10x3/uL (130-400); RBC Distribution Width 13.1 % (11.5-14.5); Red Blood Cell (RBC) Count 3.57 mill/uL (4.20-5.40)
[2022-12-25 06:04] LABS: Albumin 3.8 g/dL (3.4-4.8)
[2022-12-25 06:05] LABS: Chloride 97 mmol/L (98-107); Sodium 135 mmol/L (136-145)
[2022-12-25 06:06] LABS: Globulin 2.5 g/dL (2.4-3.5); Glucose 169 mg/dL (80-115); Protein, Total 6.3 g/dL (5.8-8.1)
[2022-12-25 06:08] LABS: Anion Gap 12 mmol/L (10-20); Bilirubin, Total 0.3 mg/dL (0.2-1.2); Carbon Dioxide 30 mmol/L (23-31)
[2022-12-25 06:09] LABS: Alkaline Phosphatase 66 U/L (40-110); Calc. Creatinine Clearance 99 mL/min (70-130); Estimated GFR 97
[2022-12-25 06:10] LABS: BUN (Urea Nitrogen) 17 mg/dL (9.8-20.1)
[2022-12-25 06:11] LABS: AST (SGOT) 13 U/L (5-34)
[2022-12-25 06:12] LABS: ALT (SGPT) 19 U/L (8-55)
[2022-12-25] MEDS: Polyethylene Glycol 3350 17 GM Packet PO SCH (08:36)
[2022-12-25] MEDS: NIFEdipine XL 60 MG ER.TAB PO SCH (08:36)
[2022-12-25] MEDS: Icosapent Ethyl 1 GM CAPSULE PO SCH ×2 (08:37→20:59)
[2022-12-25] MEDS: BuPROPion XL 150 MG ER.TAB PO SCH (08:37)
[2022-12-25] MEDS: Isosorbide Mononitrate 30 MG ER.TAB PO SCH (08:37)
[2022-12-25] MEDS: Naloxegol 12.5 MG TAB PO SCH (08:37)
[2022-12-25] MEDS: Gabapentin 300 MG CAP PO SCH ×2 (08:37→21:00)
[2022-12-25] MEDS: hydrOXYzine 10 MG TAB PO SCH ×3 (08:38→21:00)
[2022-12-25] MEDS: Anastrozole 1 MG TAB PO SCH (08:38)
[2022-12-25] MEDS: Lisinopril 20 MG TAB PO SCH (08:38)
[2022-12-25] MEDS: Senokot S 8.6-50 MG TAB PO SCH ×2 (08:38→21:00)
[2022-12-25] MEDS: Carvedilol 6.25 MG TAB PO SCH ×2 (08:39→21:02)
[2022-12-25] MEDS: Lactated Ringer's 1,000 ML IV SCH ×3 (08:39→21:02)
[2022-12-25] MEDS: Methocarbamol 500 MG TAB PO PRN (11:03)
[2022-12-25] MEDS: Rosuvastatin 20 MG TAB PO SCH (20:59)
[2022-12-25] MEDS: Amitriptyline HCl 25 MG TAB PO SCH (20:59)
[2022-12-26] MEDS: Methocarbamol 500 MG TAB PO PRN ×3 (00:56→17:14)
[2022-12-26] MEDS: Morphine 4 MG/ML VIAL SLOW IVP PRN ×6 (00:57→22:19)
[2022-12-26] MEDS: HYDROcodone/Acetaminophen 10/325 mg Tablet PO SCH ×3 (04:48→21:35)
[2022-12-26] MEDS: Dexamethasone 4 mg/ml Vial SLOW IVP SCH ×3 (05:49→17:14)
[2022-12-26] MEDS: Lactated Ringer's 1,000 ML IV SCH (06:24)
[2022-12-26] MEDS: Lisinopril 20 MG TAB PO SCH (09:22)
[2022-12-26] MEDS: Icosapent Ethyl 1 GM CAPSULE PO SCH (09:22)
[2022-12-26] MEDS: Isosorbide Mononitrate 30 MG ER.TAB PO SCH (09:23)
[2022-12-26] MEDS: Anastrozole 1 MG TAB PO SCH (09:23)
[2022-12-26] MEDS: Naloxegol 12.5 MG TAB PO SCH (09:23)
[2022-12-26] MEDS: Gabapentin 300 MG CAP PO SCH ×2 (09:23→21:36)
[2022-12-26] MEDS: hydrOXYzine 10 MG TAB PO SCH ×3 (09:23→21:39)
[2022-12-26] MEDS: Senokot S 8.6-50 MG TAB PO SCH ×2 (09:23→21:36)
[2022-12-26] MEDS: NIFEdipine XL 60 MG ER.TAB PO SCH (09:23)
[2022-12-26] MEDS: Morphine 2 MG/ML VIAL SLOW IVP PRN (09:23)
[2022-12-26] MEDS: BuPROPion XL 150 MG ER.TAB PO SCH (09:23)
[2022-12-26] MEDS: Polyethylene Glycol 3350 17 GM Packet PO SCH (09:23)
[2022-12-26] MEDS: Carvedilol 6.25 MG TAB PO SCH ×2 (11:00→21:37)
[2022-12-26] MEDS ORDERED: Communication Order-Pharmacy FS SCH (17:09)
[2022-12-26] MEDS: Amitriptyline HCl 25 MG TAB PO SCH (21:36)
[2022-12-26] MEDS: Rosuvastatin 20 MG TAB PO SCH (21:38)
[2022-12-27] MEDS: Icosapent Ethyl 1 GM CAPSULE PO SCH (00:10)
[2022-12-27] MEDS: Dexamethasone 4 mg/ml Vial SLOW IVP SCH ×4 (00:11→23:32)
[2022-12-27] MEDS: Carvedilol 6.25 MG TAB PO SCH ×2 (05:53→21:16)
[2022-12-27] MEDS: HYDROcodone/Acetaminophen 10/325 mg Tablet PO SCH (05:55)
[2022-12-27] MEDS ORDERED: fentaNYL 50 mcg/mL 1 mL Vial ONE ×2 (08:20→14:52)
[2022-12-27] MEDS: Lisinopril 20 MG TAB PO SCH (08:59)
[2022-12-27] MEDS ORDERED: Bupivacaine PF 0.5% 30 ML VIAL ONE (09:01)
[2022-12-27] MEDS ORDERED: EPINEPHrine 1 MG/ML AMP ONE (09:01)
[2022-12-27] MEDS ORDERED: KETAMINE 100 MG/ML (5ML VIAL) ONE (09:02)
[2022-12-27] MEDS ORDERED: Midazolam HCl 2 mg/2 ml Vial ONE (09:02)
[2022-12-27] MEDS ORDERED: Fentanyl 250 MCG/5 ML VIAL ONE (09:02)
[2022-12-27] MEDS ORDERED: Ketorolac Tromethamine 30 MG/ML VIAL ONE ×2 (09:03→09:39)
[2022-12-27] MEDS ORDERED: HYDROmorphone 0.5 MG/0.5 ML SYRINGE ONE ×5 (09:03→15:52)
[2022-12-27] MEDS ORDERED: PROPOFOL 200 MG/20 ML VIAL ONE (09:39)
[2022-12-27] MEDS ORDERED: Rocuronium Bromide 10 MG/ML (10ML VIAL) ONE (09:39)
[2022-12-27] MEDS ORDERED: Dexamethasone 20 MG/5 ML VIAL ONE (09:39)
[2022-12-27] MEDS ORDERED: Ondansetron PF 4 MG/2 ML Vial ONE (09:39)
[2022-12-27] MEDS ORDERED: Lidocaine 1% PF 5 ML VIAL ONE (09:39)
[2022-12-27] MEDS ORDERED: PHENYLEPHRINE-NS 100 MCG/ML 10 ML SYRINGE ONE (09:39)
[2022-12-27] MEDS ORDERED: Bupivacaine 0.25% HCL 30 ML VIAL ONE (10:51)
[2022-12-27] MEDS ORDERED: HYDROmorphone 10 mg/100 ml CADD IVPB PRN (14:54)
[2022-12-27] MEDS ORDERED: Ondansetron PF 4 MG/2 ML Vial IVP PRN ×2 (14:54→15:07)
[2022-12-27] MEDS ORDERED: diphenhydrAMINE 50 MG/ML VIAL IVP PRN (14:54)
[2022-12-27] MEDS ORDERED: diphenhydrAMINE 25 MG CAP PO PRN (14:54)
[2022-12-27] MEDS ORDERED: Naloxone HCl 0.4 mg/ml Vial IV PRN (14:54)
[2022-12-27] MEDS ORDERED: Promethazine HCl 25 MG/ML VIAL IM PRN ×2 (14:54→15:07)
[2022-12-27] MEDS ORDERED: diphenhydrAMINE 50 MG/ML VIAL IM PRN (14:54)
[2022-12-27] MEDS ORDERED: Communication Order-Pharmacy FS SCH (15:00)
[2022-12-27] MEDS ORDERED: hydrALAZINE 20 MG/ML VIAL SLOW IVP PRN (15:07)
[2022-12-27] MEDS ORDERED: traMADol HCl 50 MG TAB PO PRN (15:07)
[2022-12-27] MEDS ORDERED: Ipratropium/Albuterol 3 ML NEB NEB PRN (15:07)
[2022-12-27 15:36] LABS: #Neutrophils 20.1 thou/uL (1.40-6.50); %Basophils 0.1 % (0.0-1.0); %Lymphocytes 3.8 % (21.0-51.0); %Monocytes 4.3 % (0.0-10.0); %Neutrophils 90.8 % (42.0-75.0); Hematocrit 38.2 % (36.0-47.0); Hemoglobin 12.4 g/dL (12.0-16.0); Mean Corpuscular HGB CONC 32.5 g/dL (32.0-36.0); Mean Corpuscular Hemoglobin 31.6 pg (27.0-31.0); Mean Corpuscular Volume 97.2 fl (78.0-98.0); Mean Platelet Volume 10.9 fL (7.4-10.4); Platelet Count 310 10x3/uL (130-400); RBC Distribution Width 13.4 % (11.5-14.5); Red Blood Cell (RBC) Count 3.93 mill/uL (4.20-5.40); White Blood Cell (WBC) Count 22.2 10x3/uL (4.8-10.8)
[2022-12-27] MEDS ORDERED: Promethazine HCl 25 MG/ML VIAL IM/IV PRN (15:45)
[2022-12-27] MEDS ORDERED: Ondansetron HCl/PF 4 MG/2 ML Vial IVP PRN (15:45)
[2022-12-27] MEDS ORDERED: HYDROmorphone 2 MG/ML VIAL SLOW IVP PRN (15:45)
[2022-12-27 16:04] LABS: Anion Gap 14 mmol/L (10-20); Calc. Creatinine Clearance 92 mL/min (70-130); Calcium 9.1 mg/dL (7.8-10.44); Carbon Dioxide 26 mmol/L (23-31); Chloride 100 mmol/L (98-107); Estimated GFR 89; Glucose 160 mg/dL (80-115); Phosphorus 5.9 mg/dL (2.3-4.7); Potassium 4.1 mmol/L (3.5-5.1); Sodium 136 mmol/L (136-145)
[2022-12-27 16:52] LABS: BUN (Urea Nitrogen) 21 mg/dL (9.8-20.1); Magnesium 1.8 mg/dL (1.6-2.6)
[2022-12-27] MEDS ORDERED: hydrOXYzine 10 MG TAB PO PRN (18:24)
[2022-12-27] MEDS ORDERED: Milk Of Magnesia 30 ML UDCUP PO PRN (18:28)
[2022-12-27] MEDS ORDERED: HumaLOG 300 UNITS/3 ML VIAL SC PRN (18:31)
[2022-12-27] MEDS ORDERED: Dextrose 50% Abboject 50 ML SYRINGE SLOW IVP PRN (18:31)
[2022-12-27] MEDS ORDERED: Glucagon 1 MG/ML KIT IM PRN (18:31)
[2022-12-27] MEDS ORDERED: Dextrose 5% in Water 1,000 ML IV PRN (18:31)
[2022-12-27] MEDS: CEFAZOLIN 2 GM in Sodium Chloride 0.9% 100 ML IVPB SCH (19:26)
[2022-12-27] MEDS: Amitriptyline HCl 25 MG TAB PO SCH (21:13)
[2022-12-27] MEDS: Rosuvastatin 20 MG TAB PO SCH (21:13)
[2022-12-27] MEDS: Senokot S 8.6-50 MG TAB PO SCH (21:13)
[2022-12-28] MEDS: CEFAZOLIN 2 GM in Sodium Chloride 0.9% 100 ML IVPB SCH ×2 (04:08→09:28)
[2022-12-28] MEDS: HumaLOG 300 UNITS/3 ML VIAL SC PRN (06:14)
[2022-12-28] MEDS: Dexamethasone 4 mg/ml Vial SLOW IVP SCH (06:15)
[2022-12-28 08:59] LABS: #Monocytes 1.3 thou/uL (0.11-0.59); #Neutrophils 19.5 thou/uL (1.40-6.50); %Lymphocytes 3.6 % (21.0-51.0); %Monocytes 6.1 % (0.0-10.0); %Neutrophils 89.5 % (42.0-75.0); Hemoglobin 11.7 g/dL (12.0-16.0); Mean Corpuscular HGB CONC 32.5 g/dL (32.0-36.0); Mean Corpuscular Hemoglobin 31.8 pg (27.0-31.0); Mean Corpuscular Volume 97.8 fl (78.0-98.0); Mean Platelet Volume 10.5 fL (7.4-10.4); Platelet Count 277 10x3/uL (130-400); RBC Distribution Width 13.7 % (11.5-14.5); Red Blood Cell (RBC) Count 3.68 mill/uL (4.20-5.40); White Blood Cell (WBC) Count 21.8 10x3/uL (4.8-10.8)
[2022-12-28] MEDS: Naloxegol 12.5 MG TAB PO SCH (09:16)
[2022-12-28] MEDS: BuPROPion XL 150 MG ER.TAB PO SCH (09:17)
[2022-12-28] MEDS: Icosapent Ethyl 1 GM CAPSULE PO SCH ×2 (09:17→17:51)
[2022-12-28] MEDS: NIFEdipine XL 60 MG ER.TAB PO SCH (09:17)
[2022-12-28] MEDS: Senokot S 8.6-50 MG TAB PO SCH ×2 (09:17→21:11)
[2022-12-28] MEDS: Lisinopril 20 MG TAB PO SCH (09:17)
[2022-12-28] MEDS: Isosorbide Mononitrate 30 MG ER.TAB PO SCH (09:17)
[2022-12-28] MEDS: Carvedilol 6.25 MG TAB PO SCH ×2 (09:17→21:10)
[2022-12-28] MEDS: Polyethylene Glycol 3350 17 GM Packet PO SCH (09:18)
[2022-12-28] MEDS: Anastrozole 1 MG TAB PO SCH (09:18)
[2022-12-28 09:19] LABS: Anion Gap 14 mmol/L (10-20); BUN (Urea Nitrogen) 28 mg/dL (9.8-20.1); Calc. Creatinine Clearance 82 mL/min (70-130); Calcium 9.1 mg/dL (7.8-10.44); Carbon Dioxide 26 mmol/L (23-31); Chloride 100 mmol/L (98-107); Estimated GFR 77; Glucose 137 mg/dL (80-115); Potassium 4.2 mmol/L (3.5-5.1); Sodium 136 mmol/L (136-145)
[2022-12-28] MEDS: Dexamethasone 4 MG TAB PO SCH ×2 (12:54→17:51)
[2022-12-28] MEDS ORDERED: Ibuprofen 800 MG TAB PO PRN (20:48)
[2022-12-28] MEDS ORDERED: traMADol HCl 50 MG TAB PO PRN (20:53)
[2022-12-28] MEDS ORDERED: Lidocaine 4% Patch TD SCH (21:00)
[2022-12-28] MEDS: Morphine 4 MG/ML VIAL SLOW IVP PRN (21:09)
[2022-12-28] MEDS: Lidocaine 4% Patch TD SCH (21:10)
[2022-12-28] MEDS: Amitriptyline HCl 25 MG TAB PO SCH (21:10)
[2022-12-28] MEDS: Rosuvastatin 20 MG TAB PO SCH (21:10)
[2022-12-28] MEDS: Acetaminophen 500 MG TAB PO SCH (22:47)
[2022-12-29] MEDS: Morphine 4 MG/ML VIAL SLOW IVP PRN ×4 (03:56→20:56)
[2022-12-29] MEDS: Acetaminophen 500 MG TAB PO SCH (05:25)
[2022-12-29] MEDS: HumaLOG 300 UNITS/3 ML VIAL SC PRN ×2 (06:24→18:36)
[2022-12-29] MEDS: Isosorbide Mononitrate 30 MG ER.TAB PO SCH (09:12)
[2022-12-29] MEDS: Naloxegol 12.5 MG TAB PO SCH (09:12)
[2022-12-29] MEDS: NIFEdipine XL 60 MG ER.TAB PO SCH (09:12)
[2022-12-29 09:13] LABS: #Monocytes 1.1 thou/uL (0.11-0.59); #Neutrophils 15.4 thou/uL (1.40-6.50); %Basophils 0.1 % (0.0-1.0); %Eosinophils 0.1 % (0.0-10.0); %Lymphocytes 3.8 % (21.0-51.0); %Monocytes 6.5 % (0.0-10.0); %Neutrophils 88.1 % (42.0-75.0); Hemoglobin 11.6 g/dL (12.0-16.0); Mean Corpuscular HGB CONC 32.2 g/dL (32.0-36.0); Mean Corpuscular Hemoglobin 31.8 pg (27.0-31.0); Mean Corpuscular Volume 98.6 fl (78.0-98.0); Platelet Count 275 10x3/uL (130-400); RBC Distribution Width 13.6 % (11.5-14.5); Red Blood Cell (RBC) Count 3.65 mill/uL (4.20-5.40); White Blood Cell (WBC) Count 17.5 10x3/uL (4.8-10.8)
[2022-12-29] MEDS: Lisinopril 20 MG TAB PO SCH (09:13)
[2022-12-29] MEDS: Senokot S 8.6-50 MG TAB PO SCH ×2 (09:13→20:36)
[2022-12-29] MEDS: BuPROPion XL 150 MG ER.TAB PO SCH (09:13)
[2022-12-29] MEDS: Polyethylene Glycol 3350 17 GM Packet PO SCH ×2 (09:13→20:37)
[2022-12-29] MEDS: Carvedilol 6.25 MG TAB PO SCH ×2 (09:13→20:34)
[2022-12-29] MEDS: Dexamethasone 4 MG TAB PO SCH ×3 (09:13→18:35)
[2022-12-29] MEDS: Anastrozole 1 MG TAB PO SCH (09:13)
[2022-12-29] MEDS: Icosapent Ethyl 1 GM CAPSULE PO SCH ×2 (09:13→18:35)
[2022-12-29] MEDS: Transdermal Patch Removal TOP SCH (09:20)
[2022-12-29 09:36] LABS: Anion Gap 13 mmol/L (10-20); BUN (Urea Nitrogen) 25 mg/dL (9.8-20.1); Calc. Creatinine Clearance 96 mL/min (70-130); Calcium 9.5 mg/dL (7.8-10.44); Carbon Dioxide 24 mmol/L (23-31); Chloride 102 mmol/L (98-107); Estimated GFR 94; Glucose 178 mg/dL (80-115); Potassium 4.2 mmol/L (3.5-5.1); Sodium 135 mmol/L (136-145)
[2022-12-29] MEDS: HYDROcodone/Acetaminophen 10/325 mg Tablet PO SCH ×2 (11:49→18:35)
[2022-12-29] MEDS: Heparin 5,000 UNITS/ML VIAL SC SCH ×2 (14:02→20:42)
[2022-12-29] MEDS: Ibuprofen 800 MG TAB PO SCH ×2 (14:02→20:35)
[2022-12-29] MEDS ORDERED: Gabapentin 300 MG CAP PO SCH (15:00)
[2022-12-29] MEDS ORDERED: Heparin 5,000 UNITS/ML VIAL SC SCH (15:00)
[2022-12-29] MEDS: Rosuvastatin 20 MG TAB PO SCH (20:34)
[2022-12-29] MEDS: Gabapentin 300 MG CAP PO SCH (20:36)
[2022-12-29] MEDS: Amitriptyline HCl 25 MG TAB PO SCH (20:36)
[2022-12-29] MEDS: Lidocaine 4% Patch TD SCH (20:37)
[2022-12-30] MEDS: HYDROcodone/Acetaminophen 10/325 mg Tablet PO SCH ×3 (03:55→18:31)
[2022-12-30 04:30] LABS: #Monocytes 0.8 thou/uL (0.11-0.59); #Neutrophils 12.1 thou/uL (1.40-6.50); %Basophils 0.1 % (0.0-1.0); %Lymphocytes 4.7 % (21.0-51.0); %Monocytes 5.8 % (0.0-10.0); %Neutrophils 88.2 % (42.0-75.0); Hematocrit 32.7 % (36.0-47.0); Hemoglobin 10.7 g/dL (12.0-16.0); Mean Corpuscular HGB CONC 32.7 g/dL (32.0-36.0); Mean Corpuscular Hemoglobin 31.7 pg (27.0-31.0); Mean Corpuscular Volume 96.7 fl (78.0-98.0); Mean Platelet Volume 10.5 fL (7.4-10.4); Platelet Count 245 10x3/uL (130-400); RBC Distribution Width 13.6 % (11.5-14.5); Red Blood Cell (RBC) Count 3.38 mill/uL (4.20-5.40); White Blood Cell (WBC) Count 13.7 10x3/uL (4.8-10.8)
[2022-12-30 05:02] LABS: Anion Gap 13 mmol/L (10-20); BUN (Urea Nitrogen) 22 mg/dL (9.8-20.1); Calc. Creatinine Clearance 101 mL/min (70-130); Calcium 9.2 mg/dL (7.8-10.44); Carbon Dioxide 25 mmol/L (23-31); Chloride 103 mmol/L (98-107); Estimated GFR 97; Glucose 187 mg/dL (80-115); Sodium 137 mmol/L (136-145)
[2022-12-30] MEDS: BuPROPion XL 150 MG ER.TAB PO SCH (08:23)
[2022-12-30] MEDS: Anastrozole 1 MG TAB PO SCH (08:23)
[2022-12-30] MEDS: Heparin 5,000 UNITS/ML VIAL SC SCH ×3 (08:23→21:09)
[2022-12-30] MEDS: Morphine 4 MG/ML VIAL SLOW IVP PRN ×3 (08:24→21:41)
[2022-12-30] MEDS: Icosapent Ethyl 1 GM CAPSULE PO SCH ×2 (08:24→17:01)
[2022-12-30] MEDS: Lisinopril 20 MG TAB PO SCH (08:24)
[2022-12-30] MEDS: Isosorbide Mononitrate 30 MG ER.TAB PO SCH (08:24)
[2022-12-30] MEDS: Gabapentin 300 MG CAP PO SCH ×2 (08:24→21:11)
[2022-12-30] MEDS: Dexamethasone 4 MG TAB PO SCH ×3 (08:25→17:01)
[2022-12-30] MEDS: Carvedilol 6.25 MG TAB PO SCH ×2 (08:25→21:10)
[2022-12-30] MEDS: NIFEdipine XL 60 MG ER.TAB PO SCH (08:25)
[2022-12-30] MEDS: Polyethylene Glycol 3350 17 GM Packet PO SCH ×2 (08:25→21:09)
[2022-12-30] MEDS: Ibuprofen 800 MG TAB PO SCH ×3 (08:25→21:10)
[2022-12-30] MEDS: Naloxegol 12.5 MG TAB PO SCH (08:25)
[2022-12-30] MEDS: Senokot S 8.6-50 MG TAB PO SCH ×2 (08:25→21:12)
[2022-12-30] MEDS: Transdermal Patch Removal TOP SCH (08:26)
[2022-12-30] MEDS: HumaLOG 300 UNITS/3 ML VIAL SC PRN (17:02)
[2022-12-30] MEDS: Lidocaine 4% Patch TD SCH (21:09)
[2022-12-30] MEDS: Rosuvastatin 20 MG TAB PO SCH (21:11)
[2022-12-30] MEDS: Amitriptyline HCl 25 MG TAB PO SCH (21:12)
[2022-12-31] MEDS: HYDROcodone/Acetaminophen 10/325 mg Tablet PO SCH ×3 (03:54→20:59)
[2022-12-31 04:22] LABS: #Monocytes 1.1 thou/uL (0.11-0.59); #Neutrophils 14.3 thou/uL (1.40-6.50); %Basophils 0.1 % (0.0-1.0); %Eosinophils 0.1 % (0.0-10.0); %Lymphocytes 4.2 % (21.0-51.0); %Monocytes 6.6 % (0.0-10.0); %Neutrophils 87.7 % (42.0-75.0); Hematocrit 34.7 % (36.0-47.0); Hemoglobin 11.4 g/dL (12.0-16.0); Mean Corpuscular HGB CONC 32.9 g/dL (32.0-36.0); Mean Corpuscular Hemoglobin 32.5 pg (27.0-31.0); Mean Corpuscular Volume 98.9 fl (78.0-98.0); Mean Platelet Volume 10.8 fL (7.4-10.4); Platelet Count 278 10x3/uL (130-400); RBC Distribution Width 13.5 % (11.5-14.5); Red Blood Cell (RBC) Count 3.51 mill/uL (4.20-5.40); White Blood Cell (WBC) Count 16.3 10x3/uL (4.8-10.8)
[2022-12-31 05:00] LABS: Anion Gap 16 mmol/L (10-20); BUN (Urea Nitrogen) 19 mg/dL (9.8-20.1); Calc. Creatinine Clearance 92 mL/min (70-130); Calcium 9.4 mg/dL (7.8-10.44); Carbon Dioxide 22 mmol/L (23-31); Chloride 103 mmol/L (98-107); Estimated GFR 89; Glucose 256 mg/dL (80-115); Potassium 3.9 mmol/L (3.5-5.1); Sodium 137 mmol/L (136-145)
[2022-12-31] MEDS: Morphine 4 MG/ML VIAL SLOW IVP PRN ×3 (08:54→17:53)
[2022-12-31] MEDS: Icosapent Ethyl 1 GM CAPSULE PO SCH ×2 (08:55→18:49)
[2022-12-31] MEDS: Carvedilol 6.25 MG TAB PO SCH ×2 (08:55→21:01)
[2022-12-31] MEDS: Naloxegol 12.5 MG TAB PO SCH (08:55)
[2022-12-31] MEDS: Dexamethasone 4 MG TAB PO SCH ×3 (08:55→17:53)
[2022-12-31] MEDS: Gabapentin 300 MG CAP PO SCH ×2 (08:56→20:58)
[2022-12-31] MEDS: Ibuprofen 800 MG TAB PO SCH ×3 (08:56→21:01)
[2022-12-31] MEDS: Isosorbide Mononitrate 30 MG ER.TAB PO SCH (08:56)
[2022-12-31] MEDS: BuPROPion XL 150 MG ER.TAB PO SCH (08:56)
[2022-12-31] MEDS: Polyethylene Glycol 3350 17 GM Packet PO SCH ×2 (08:56→20:58)
[2022-12-31] MEDS: Senokot S 8.6-50 MG TAB PO SCH ×2 (08:56→21:01)
[2022-12-31] MEDS: Anastrozole 1 MG TAB PO SCH (08:56)
[2022-12-31] MEDS: Apixaban 5 MG TAB PO SCH ×2 (08:56→21:01)
[2022-12-31] MEDS: Lisinopril 20 MG TAB PO SCH (08:56)
[2022-12-31] MEDS: NIFEdipine XL 60 MG ER.TAB PO SCH (08:56)
[2022-12-31] MEDS: Transdermal Patch Removal TOP SCH (08:57)
[2022-12-31 20:25] LABS: Troponin I 0.017 ng/mL (< 0.028)
[2022-12-31] MEDS: Lidocaine 4% Patch TD SCH (20:58)
[2022-12-31] MEDS: Rosuvastatin 20 MG TAB PO SCH (21:00)
[2022-12-31] MEDS: Amitriptyline HCl 25 MG TAB PO SCH (21:01)
[2023-01-01] MEDS: Morphine 4 MG/ML VIAL SLOW IVP PRN ×2 (00:42→08:58)
[2023-01-01] MEDS: HYDROcodone/Acetaminophen 10/325 mg Tablet PO SCH ×2 (04:33→13:31)
[2023-01-01] MEDS: HumaLOG 300 UNITS/3 ML VIAL SC PRN (05:59)
[2023-01-01 07:50] VITALS: TEMP 98
[2023-01-01] MEDS: Polyethylene Glycol 3350 17 GM Packet PO SCH (08:57)
[2023-01-01] MEDS: NIFEdipine XL 60 MG ER.TAB PO SCH (08:58)
[2023-01-01] MEDS: Isosorbide Mononitrate 30 MG ER.TAB PO SCH (08:58)
[2023-01-01] MEDS: Naloxegol 12.5 MG TAB PO SCH (08:59)
[2023-01-01] MEDS: Dexamethasone 4 MG TAB PO SCH ×2 (08:59→13:33)
[2023-01-01] MEDS: Carvedilol 6.25 MG TAB PO SCH (08:59)
[2023-01-01] MEDS: Anastrozole 1 MG TAB PO SCH (08:59)
[2023-01-01] MEDS: BuPROPion XL 150 MG ER.TAB PO SCH (08:59)
[2023-01-01] MEDS: Ibuprofen 800 MG TAB PO SCH (08:59)
[2023-01-01] MEDS: Gabapentin 300 MG CAP PO SCH (08:59)
[2023-01-01] MEDS: Icosapent Ethyl 1 GM CAPSULE PO SCH (08:59)
[2023-01-01 09:00] VITALS: BP 124/64
[2023-01-01] MEDS: Lisinopril 20 MG TAB PO SCH (09:00)
[2023-01-01] MEDS: Senokot S 8.6-50 MG TAB PO SCH (09:00)
[2023-01-01] MEDS: Apixaban 5 MG TAB PO SCH (09:00)
[2023-01-01] MEDS: Transdermal Patch Removal TOP SCH (09:00)
== END 2023-01-01 15:46 | disposition home or self-care (01) | DRG 164 ==
LOC: SURG A 17:08 → 2NO 12-27 18:41
PROVIDERS: ADMIT Family Medicine; ATTEND Family Medicine
PROC: 0BTG4ZZ Resection of Left Upper Lung Lobe, Percutaneous Endoscopic Approach (ICD-10-PCS; principal; 2022-12-27)
PROC: 07B74ZX Excision of Thorax Lymphatic, Percutaneous Endoscopic Approach, Diagnostic (ICD-10-PCS; 2022-12-27)
PROC: 8E0W4CZ Robotic Assisted Procedure of Trunk Region, Percutaneous Endoscopic Approach (ICD-10-PCS; 2022-12-27)
PROC: 3E033XZ Introduction of Vasopressor into Peripheral Vein, Percutaneous Approach (ICD-10-PCS; 2022-12-27)
DX: C34.12 Malignant neoplasm of upper lobe, left bronchus or lung (principal); C34.2 Malignant neoplasm of middle lobe, bronchus or lung; S22.070A Wedge compression fracture of T9-T10 vertebra, initial encounter for closed fracture; C79.51 Secondary malignant neoplasm of bone; N17.9 Acute kidney failure, unspecified; G89.3 Neoplasm related pain (acute) (chronic); Z51.5 Encounter for palliative care; R63.4 Abnormal weight loss; I73.9 Peripheral vascular disease, unspecified; M10.9 Gout, unspecified; E11.9 Type 2 diabetes mellitus without complications; C50.912 Malignant neoplasm of unspecified site of left female breast; F17.210 Nicotine dependence, cigarettes, uncomplicated; I48.91 Unspecified atrial fibrillation; R53.81 Other malaise; K59.03 Drug induced constipation; R63.0 Anorexia; E78.00 Pure hypercholesterolemia, unspecified; I25.10 Atherosclerotic heart disease of native coronary artery without angina pectoris; N64.4 Mastodynia; R59.0 Localized enlarged lymph nodes; Z79.899 Other long term (current) drug therapy; Z91.018 Allergy to other foods; Z98.890 Other specified postprocedural states; Z68.30 Body mass index [BMI] 30.0-30.9, adult; Z89.611 Acquired absence of right leg above knee; Z95.0 Presence of cardiac pacemaker; Z92.3 Personal history of irradiation; Z92.21 Personal history of antineoplastic chemotherapy; Z83.3 Family history of diabetes mellitus; Z82.49 Family history of ischemic heart disease and other diseases of the circulatory system; X50.0XXA Overexertion from strenuous movement or load, initial encounter
CPT/HCPCS: 36415; 36416; 51701; 71045; 71260; 72157; 72158; 74177; 78306; 80048; 80053; 81001; 82570; 83690; 83735; 84100; 84484; 84540; 85025; 86850; 86900; 86901; 88112; 88305; 88307; 88341; 88342; 93005; 93010; 96374; 96375; A9503; C1713; C1751; C1776; J0171; J0360; J1100; J1170; J1644; J1815; J1885; J2250; J2270; J2272; J2405; J2704; J3010; J3490; J7120; J8540; Q0162; Q9967; S0020